=== PATIENT | male | born 1955 | race African-American/Black ===

== ENCOUNTER 2016-11-02 14:29 | Inpatient (IN) | payer MEDICARE, OTHER ==
[~2016-11-02] VITALS: Ht 167.6 cm; Wt 76.7 kg
[~2016-11-02 14:29] MED LIST: BACTRIM-DS1 EA ORAL; CEPHALEXIN500 MG ORAL; EPZICOM1 TAB PO; FOLIC ACID1 MG PO; IBUPROFEN600 MG ORAL; LEXIVA700 MG PO; NORVIR100 MG PO; ROBAXIN-750750 MG PO; TRAMADOL HCL50 MG ORAL; VIREAD300 MG PO; ZESTRIL5 MG PO
[2016-11-02] MEDS ORDERED: ROXICODONE30 M1 ORAL (14:49)
[2016-11-02] MEDS ORDERED: CYMBALTA60 MG ORAL (14:49)
[2016-11-02] MEDS ORDERED: LEXAPRO10 MG ORAL (14:49)
[2016-11-02] MEDS ORDERED: DESCOVY 200-251 EACH PO (14:49)
[2016-11-02] MEDS ORDERED: TOPAMAX25 MG ORAL (14:49)
[2016-11-02] MEDS ORDERED: ALPRAZOLAM2 MG ORAL (14:49)
[2016-11-02] MEDS ORDERED: TIVICAY50 MG ORAL (14:49)
[2016-11-02] MEDS ORDERED: LEXAPRO20 MG ORAL (14:49)
[2016-11-02] MEDS ORDERED: PREZCOBIX 8001 EACH PO (14:49)
[2016-11-02] MEDS ORDERED: SEROQUEL100 MG ORAL (14:49)
--- NOTE | 2016-11-02 15:03 | Emergency Room Report ---
History of Present Illness General Chief Complaint: Abdominal Pain Source: Patient Present Illness HPI Patient is a 61-year-old male presented after increased shortness of breath. The patient gradual onset of symptoms. He was noted to have prior history of HIV. Patient reported having worsening symptoms. The patient denies recent fever. He denies exertional pain. Patient having some pain to the left flank. He currently is taking HIV medications.The patient reported having onset of symptoms worsen with supine position Allergies: Coded Allergies: No Known Allergies (Unverified , 01/08/13) Patient History Past Medical History: see triage record Reviewed Nursing Documentation: PMH: Agreed, PSxH: Agreed Nursing Documentation-PMH Hx Hypertension: Yes Hx Asthma: Yes Hx Cancer: No Hx Gastrointestinal Problems: No Hx Seizures: No Hx Guillian-Caldwell Syndrome: No Hx Paralysis: Yes Hx Peripheral Neuropathy: No Hx Spinal Cord Injury: No Hx Head Trauma: No Hx Traumatic Brain Injury: No Hx Memory Loss: No Hx Concentration Difficulty: No Hx Speech Problem: No Hx Tremors: No Hx Vertigo: No Hx Dizziness: No Hx Syncope: No Hx Headaches: Yes Hx Weakness: Yes Review of Systems All Other Systems: negative except mentioned in HPI Physical Exam Vital Signs Date Time Temp Pulse Resp B/P Pulse Ox O2 Delivery O2 Flow Rate FiO2 11/02/16 14:38 97.5 145 16 113/87 93 Room Air Sp02 EP Interpretation: reviewed, normal General Appearance: normal inspection, alert, GCS 15, mild distress Head: atraumatic ENT: normal ENT inspection, hearing grossly normal, normal voice Neck: normal inspection, full range of motion, supple, no bony tend Respiratory: normal inspection, normal breath sounds, no respiratory distress, no retraction, no wheezing Cardiovascular #1: no edema, tachycardia Gastrointestinal: normal inspection, normal bowel sounds, non tender, soft, no guarding, no hernia Genitourinary: no CVA tenderness Musculoskeletal: normal inspection, back normal, normal range of motion Neurologic: normal inspection, alert, oriented x3, responsive, 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 Because of complexity of patient' s case laboratory testing and imaging studies were ordered.Patient is a HIV positive. The patient was noted to have chest x-ray with a left lower lobe infiltrate with normal cardiac size. The patient was given IV fluids as well as IV antibiotics. Dr. Delaney Diana was contacted for inpatient management. Labs Test 11/02/16 15:22 11/02/16 15:38 Urine Color Yellow Urine Appearance Clear Urine pH 5 (4.5-8.0) Urine Specific [place] 1.020 (1.005-1.035) Urine Protein 2+ (NEGATIVE) Urine Glucose (UA) Negative (NEGATIVE) Urine Ketones Negative (NEGATIVE) Urine Occult Blood 1+ (NEGATIVE) Urine Nitrite Negative (NEGATIVE) Urine Bilirubin Negative (NEGATIVE) Urine Urobilinogen Normal MG/DL (0.0-1.0) Urine Leukocyte Esterase Negative (NEGATIVE) Urine RBC 2-4 /HPF (0 - 0) Urine WBC 0-2 /HPF (0 - 0) Urine Squamous Epithelial Cells None /LPF (NONE/OCC) Urine Bacteria Few /HPF (NONE) White Blood Count 14.3 K/UL (4.8-10.8) Red Blood Count 4.76 M/UL (4.70-6.10) Hemoglobin 14.4 G/DL (14.2-18.0) Hematocrit 43.0 % (42.0-52.0) Mean Corpuscular Volume 90 FL (80-99) Mean Corpuscular Hemoglobin 30.3 PG (27.0-31.0) Mean Corpuscular Hemoglobin Concent 33.5 G/DL (32.0-36.0) Red Cell Distribution Width 14.6 % (11.6-14.8) Platelet Count 150 K/UL (150-450) Mean Platelet Volume 6.4 FL (6.5-10.1) Neutrophils (%) (Auto) 81.5 % (45.0-75.0) Lymphocytes (%) (Auto) 10.2 % (20.0-45.0) Monocytes (%) (Auto) 7.8 % (1.0-10.0) Eosinophils (%) (Auto) 0.0 % (0.0-3.0) Basophils (%) (Auto) 0.4 % (0.0-2.0) Prothrombin Time 11.0 SEC (9.30-11.50) Prothromb Time International Ratio 1.1 (0.9-1.1) Activated Partial Thromboplast Time 26 SEC (23-33) Sodium Level 142 mEQ/L (135-145) Potassium Level 3.8 mEQ/L (3.4-4.9) Chloride Level 100 mEQ/L (98-107) Carbon Dioxide Level 24 mEQ/L (20-30) Anion Gap 18 (5-15) Blood Urea Nitrogen 17 mg/dL (7-23) Creatinine 1.3 mg/dL (0.7-1.2) Estimat Glomerular Filtration Rate > 60 mL/min (>60) Glucose Level 151 mg/dL (74-106) Lactic Acid Level 1.40 mmol/L (0.66-2.22) Calcium Level 9.5 mg/dL (8.6-10.2) Total Bilirubin 2.0 mg/dL (0.0-1.2) Direct Bilirubin 0.4 mg/dL (0.1-0.3) Aspartate Amino Transf (AST/SGOT) 12 U/L (5-40) Alanine Aminotransferase (ALT/SGPT) 13 U/L (3-41) Alkaline Phosphatase 87 U/L (40-129) Total Creatine Kinase 43 U/L (38-174) Creatine Kinase MB < 1.5 ng/mL (< 6.7) Creatine Kinase MB Relative Index Troponin I < 0.30 ng/mL (<=0.30) Pro-B-Type Natriuretic Peptide 102 pg/mL (0-125) Total Protein 7.1 g/dL (6.6-8.7) Albumin 4.2 g/dL (3.5-5.2) Globulin 2.9 g/dL Albumin/Globulin Ratio 1.4 (1.0-2.7) EKG Diagnostic Results Rate: tachycardiac Rhythm: NSR ST Segments: no acute changes Rhythm Strip Diag. Results EP Interpretation: yes Rhythm: no PVC's, no ectopy, other - sinus tachycardia Chest X-Ray Diagnostic Results EP Interpretation: Yes Findings: no effusion, no pneumothorax, no acute cardiopulmonary disease, other - left lower lobe pneumonia Number of Views: 1 Last Vital Signs Date Time Temp Pulse Resp B/P Pulse Ox O2 Delivery O2 Flow Rate FiO2 11/02/16 14:38 97.5 145 16 113/87 93 Room Air Status: unchanged Disposition: ADMITTED INPATIENT Condition: Serious AdonayYony Nov 02, 2016 15:03
[2016-11-02 15:09] VITALS: BP 129/93
--- NOTE | 2016-11-02 16:05 | Diagnostic Imaging Report ---
Indication: SOB Technique: One view of the chest Comparison: 01/08/2013 Findings: Inspiration is suboptimal. There is bilateral basilar and left perihilar atelectasis. There is slight blunting of left costophrenic sulcus, small effusion not excludable. The heart size is borderline enlarged. Impression: Bilateral atelectatic changes. Cannot rule out small left pleural effusion No acute process otherwise
[2016-11-02 16:36] LABS: BASOPHILS % (AUTO) 0.4 % (0.0-2.0); LYMPHOCYTES % (AUTO) 10.2 % (20.0-45.0); MEAN CORPUSCULAR HEMOGLOBIN 30.3 PG (27.0-31.0); MEAN CORPUSCULAR HGB CONC 33.5 G/DL (32.0-36.0); MEAN CORPUSCULAR VOLUME 90 FL (80-99); MEAN PLATELET VOLUME 6.4 FL (6.5-10.1); MONOCYTES % (AUTO) 7.8 % (1.0-10.0); NEUTROPHILS % (AUTO) 81.5 % (45.0-75.0); PLATELET COUNT 150 K/UL (150-450); RED BLOOD COUNT 4.76 M/UL (4.70-6.10); RED CELL DISTRIBUTION WIDTH 14.6 % (11.6-14.8); WHITE BLOOD COUNT 14.3 K/UL (4.8-10.8)
[2016-11-02 16:36] LABS: APPEARANCE,URINE CLEAR; KETONES,URINE NEGATIVE (NEGATIVE); LEUKOCYTE ESTERASE ,URINE NEGATIVE (NEGATIVE); NITRITE,URINE NEGATIVE (NEGATIVE); PH,URINE 5 (4.5-8.0); PROTEIN,URINE 2+ (NEGATIVE); UROBILINOGEN,URINE NORMAL MG/DL (0.0-1.0)
[2016-11-02 16:39] LABS: INR 1.1 (0.9-1.1)
[2016-11-02] MEDS ORDERED: Ampicillin/Sulbactam Sod 3 GM in NS 100 ML IVPB ONE (16:45)
[2016-11-02 16:46] LABS: BACTERIA,URINE FEW /HPF; WBC,URINE 0-2 /HPF (0 - 0)
[2016-11-02] MEDS ORDERED: Unasyn 3gm Inj ONE (16:49)
[2016-11-02 16:51] LABS: TROPONIN I < 0.30 ng/mL (<=0.30)
[2016-11-02 16:54] LABS: ALANINE AMINOTRANSFERASE 13 U/L (3-41); ALBUMIN/GLOBULIN RATIO 1.4 (1.0-2.7); ANION GAP 18 (5-15); ASPARTATE AMINO TRANSFERASE 12 U/L (5-40); CALCIUM 9.5 mg/dL (8.6-10.2); CARBON DIOXIDE 24 mEQ/L (20-30); CHLORIDE 100 mEQ/L (98-107); CREATININE 1.3 mg/dL (0.7-1.2); GLOMERULAR FILTRATION RATE > 60 mL/min (>60); HEMOLYSIS 4; POTASSIUM 3.8 mEQ/L (3.4-4.9); SODIUM 142 mEQ/L (135-145); TOTAL PROTEIN 7.1 g/dL (6.6-8.7)
[2016-11-02 16:59] LABS: CKMB < 1.5 ng/mL (< 6.7)
[2016-11-02 17:10] LABS: BILIRUBIN,DIRECT 0.4 mg/dL (0.1-0.3)
[2016-11-02] MEDS ORDERED: DuoNeb 0.5-3(2.5)mg/3ml neb HHN PRN (19:15)
[2016-11-02] MEDS ORDERED: Promethazine/Codeine 5ml UD ORAL PRN (19:15)
[2016-11-02] MEDS ORDERED: Mylanta II UD 30ml ORAL PRN (19:15)
[2016-11-02] MEDS ORDERED: Miralax 17gm pkt ORAL PRN (19:15)
[2016-11-02] MEDS ORDERED: Nitroglycerin Subl 0.4mg tab (Bottle Of 25) SL PRN (19:15)
[2016-11-02] MEDS ORDERED: [UNRECOGNIZED DRUG - OTHER] ORAL SCH (19:15)
[2016-11-02 20:53] VITALS: BP 137/98
--- NOTE | 2016-11-02 22:10 | Infectious Diseases Prog Note ---
Assessment/Plan Problems: (1) CAP (community acquired pneumonia) Assessment & Plan: continue cefepime , will add zithromax to cover atypical organisms, await sputum culture, continue bactrim for PJP prophylaxis (2) HIV (human immunodeficiency virus infection) Assessment & Plan: will resume previous HIV meds, and order viral load and CD4 counts Subjective Allergies: Coded Allergies: No Known Allergies (Unverified , 01/08/13) Objective Vital Signs Last 24 Hour Vital Signs Date Time Temp Pulse Resp B/P Pulse Ox O2 Delivery O2 Flow Rate FiO2 11/02/16 20:57 Nasal Cannula 2.0 28 11/02/16 20:57 96 Nasal Cannula 2.0 28 11/02/16 20:53 97.9 124 20 137/98 96 Nasal Cannula 2.0 11/02/16 19:21 97.5 125 18 150/98 99 Nasal Cannula 3.0 11/02/16 15:09 97.5 140 16 129/93 93 Room Air 11/02/16 14:38 97.5 145 16 113/87 93 Room Air Height (Feet): 5 Height (Inches): 6.00 Weight (Pounds): 169 Microbiology Date/Time Source Procedure Growth Status 11/02/16 15:35 Nasal Nares Influenza Types A,B Antigen (NEHEMIAH) - Final Complete Laboratory Tests Test 11/02/16 15:22 11/02/16 15:38 Urine Color Yellow Urine Appearance Clear Urine pH 5 (4.5-8.0) Urine Specific [place] 1.020 (1.005-1.035) Urine Protein 2+ (NEGATIVE) H Urine Glucose (UA) Negative (NEGATIVE) Urine Ketones Negative (NEGATIVE) Urine Occult Blood 1+ (NEGATIVE) H Urine Nitrite Negative (NEGATIVE) Urine Bilirubin Negative (NEGATIVE) Urine Urobilinogen Normal MG/DL (0.0-1.0) Urine Leukocyte Esterase Negative (NEGATIVE) Urine RBC 2-4 /HPF (0 - 0) H Urine WBC 0-2 /HPF (0 - 0) Urine Squamous Epithelial Cells None /LPF (NONE/OCC) Urine Bacteria Few /HPF (NONE) White Blood Count 14.3 K/UL (4.8-10.8) H Red Blood Count 4.76 M/UL (4.70-6.10) Hemoglobin 14.4 G/DL (14.2-18.0) Hematocrit 43.0 % (42.0-52.0) Mean Corpuscular Volume 90 FL (80-99) Mean Corpuscular Hemoglobin 30.3 PG (27.0-31.0) Mean Corpuscular Hemoglobin Concent 33.5 G/DL (32.0-36.0) Red Cell Distribution Width 14.6 % (11.6-14.8) Platelet Count 150 K/UL (150-450) Mean Platelet Volume 6.4 FL (6.5-10.1) L Neutrophils (%) (Auto) 81.5 % (45.0-75.0) H Lymphocytes (%) (Auto) 10.2 % (20.0-45.0) L Monocytes (%) (Auto) 7.8 % (1.0-10.0) Eosinophils (%) (Auto) 0.0 % (0.0-3.0) Basophils (%) (Auto) 0.4 % (0.0-2.0) Prothrombin Time 11.0 SEC (9.30-11.50) Prothromb Time International Ratio 1.1 (0.9-1.1) Activated Partial Thromboplast Time 26 SEC (23-33) Sodium Level 142 mEQ/L (135-145) Potassium Level 3.8 mEQ/L (3.4-4.9) Chloride Level 100 mEQ/L (98-107) Carbon Dioxide Level 24 mEQ/L (20-30) Anion Gap 18 (5-15) H Blood Urea Nitrogen 17 mg/dL (7-23) Creatinine 1.3 mg/dL (0.7-1.2) H Estimat Glomerular Filtration Rate > 60 mL/min (>60) Glucose Level 151 mg/dL (74-106) H Lactic Acid Level 1.40 mmol/L (0.66-2.22) Calcium Level 9.5 mg/dL (8.6-10.2) Total Bilirubin 2.0 mg/dL (0.0-1.2) H Direct Bilirubin 0.4 mg/dL (0.1-0.3) H Aspartate Amino Transf (AST/SGOT) 12 U/L (5-40) Alanine Aminotransferase (ALT/SGPT) 13 U/L (3-41) Alkaline Phosphatase 87 U/L (40-129) Total Creatine Kinase 43 U/L (38-174) Creatine Kinase MB < 1.5 ng/mL (< 6.7) Creatine Kinase MB Relative Index Troponin I < 0.30 ng/mL (<=0.30) Pro-B-Type Natriuretic Peptide 102 pg/mL (0-125) Total Protein 7.1 g/dL (6.6-8.7) Albumin 4.2 g/dL (3.5-5.2) Globulin 2.9 g/dL Albumin/Globulin Ratio 1.4 (1.0-2.7) Current Medications Medications (Trade) Dose Ordered Sig/Christie Route PRN Reason Start Time Stop Time Status Last Admin Dose Admin Acetaminophen (Tylenol) 650 mg Q4H PRN ORAL fever 11/02/16 19:15 12/02/16 19:14 Al Hydroxide/Mg Hydroxide (Mylanta II) 30 ml Q6H PRN ORAL dyspepsia 11/02/16 19:15 12/02/16 19:14 Albuterol/ Ipratropium 3 ml 3 ml Q4H PRN HHN Shortness of Breath 11/02/16 19:15 11/07/16 19:14 Cefepime HCl/ Dextrose (Maxipime/D5W 50ml) 50 ml @ 100 mls/hr EVERY 12 HOURS IV 11/02/16 21:00 11/09/16 20:59 Dolutegravir Sodium (Tivicay) 50 mg DAILY ORAL 11/03/16 09:00 12/03/16 08:59 UNV Duloxetine HCl (Cymbalta) 60 mg DAILY ORAL 11/03/16 09:00 12/03/16 08:59 Escitalopram Oxalate (Lexapro) 10 mg DAILY ORAL 11/03/16 09:00 12/03/16 08:59 Heparin Sodium (Porcine) (Heparin 5000 units/ml) 5,000 units EVERY 12 HOURS SUBQ 11/02/16 21:00 12/02/16 20:59 Lisinopril (Zestril) 5 mg DAILY ORAL 11/03/16 09:00 12/03/16 08:59 Methocarbamol (Robaxin) 750 mg TID ORAL 11/03/16 09:00 12/03/16 08:59 Nitroglycerin (Ntg) 0.4 mg Q5M PRN SL Prn Chest Pain 11/02/16 19:15 12/02/16 19:14 Ondansetron HCl (Zofran) 4 mg Q6H PRN IVP Nausea & Vomiting 11/02/16 19:15 12/02/16 19:14 Oxycodone HCl (Roxicodone) 30 mg DAILY ORAL 11/03/16 09:00 11/10/16 08:59 UNV Polyethylene Glycol (Miralax) 17 gm DAILYPRN PRN ORAL Constipation 11/02/16 19:15 12/02/16 19:14 Promethazine HCl/ Codeine (Phenergan with Codeine) 5 ml Q4H PRN ORAL For Cough 11/02/16 19:15 12/02/16 19:14 Quetiapine Fumarate (SEROquel) 100 mg DAILY ORAL 11/03/16 09:00 12/03/16 08:59 Temazepam (Restoril) 15 mg HSPRN PRN ORAL Insomnia 11/02/16 19:15 11/09/16 19:14 Topiramate (Topamax) 50 mg EVERY 12 HOURS ORAL 11/02/16 21:00 12/02/16 20:59 Trimethoprim/ Sulfamethoxazole (Bactrim-DS) 1 ea TWICE A DAY ORAL 11/03/16 09:00 11/10/16 08:59 Stanley Sofia M.D. Nov 02, 2016 22:10
[2016-11-02] MEDS: Topiramate 25mg tab ORAL SCH (22:16)
[2016-11-02] MEDS: Heparin 5000 units/ml inj SUBQ SCH (22:19)
[2016-11-03] VITALS: BP 140/100
[2016-11-03 04:00] VITALS: BP 129/78
[2016-11-03 07:55] LABS: BASOPHILS % (AUTO) 0.4 % (0.0-2.0); EOSINOPHILS % (AUTO) 0.2 % (0.0-3.0); LYMPHOCYTES % (AUTO) 12.7 % (20.0-45.0); MEAN CORPUSCULAR HEMOGLOBIN 30.6 PG (27.0-31.0); MEAN CORPUSCULAR HGB CONC 33.8 G/DL (32.0-36.0); MEAN CORPUSCULAR VOLUME 91 FL (80-99); MEAN PLATELET VOLUME 7.6 FL (6.5-10.1); MONOCYTES % (AUTO) 8.1 % (1.0-10.0); NEUTROPHILS % (AUTO) 78.6 % (45.0-75.0); PLATELET COUNT 133 K/UL (150-450); RED BLOOD COUNT 4.24 M/UL (4.70-6.10); RED CELL DISTRIBUTION WIDTH 14.7 % (11.6-14.8); WHITE BLOOD COUNT 14.9 K/UL (4.8-10.8)
[2016-11-03 08:00] VITALS: BP 132/84
[2016-11-03 08:22] LABS: ANION GAP 15 (5-15); CALCIUM 9.2 mg/dL (8.6-10.2); CARBON DIOXIDE 25 mEQ/L (20-30); CHLORIDE 99 mEQ/L (98-107); GLOMERULAR FILTRATION RATE > 60 mL/min (>60); HEMOLYSIS 4; PHOSPHORUS 2.4 mg/dL (2.5-4.8); POTASSIUM 4.2 mEQ/L (3.4-4.9); SODIUM 139 mEQ/L (135-145)
[2016-11-03] MEDS ORDERED: Epzicom tab ORAL SCH ×2 (09:00)
[2016-11-03] MEDS: oxyCONTIN 10mg tab ORAL SCH (09:00)
[2016-11-03] MEDS ORDERED: Ritonavir 100mg tab ORAL SCH (09:00)
[2016-11-03] MEDS ORDERED: Bactrim DS (160mg/800mg) tab ORAL SCH (09:00)
[2016-11-03] MEDS: Heparin 5000 units/ml inj SUBQ SCH ×2 (09:00→21:36)
[2016-11-03] MEDS ORDERED: Dolutegravir Sodium 50mg tab ORAL SCH (09:00)
[2016-11-03] MEDS: DULoxetine 30mg cap ORAL SCH (09:20)
[2016-11-03] MEDS: Topiramate 25mg tab ORAL SCH ×2 (09:21→21:35)
[2016-11-03] MEDS: Azithromycin 250mg tab ORAL SCH (09:21)
[2016-11-03] MEDS: Lisinopril 2.5mg tab ORAL SCH (09:21)
[2016-11-03] MEDS: Methocarbamol 750mg tab ORAL SCH ×3 (09:22→18:16)
[2016-11-03 11:57] VITALS: BP 126/82
--- NOTE | 2016-11-03 15:36 | Cardiac Electrophysiology PN ---
Subjective Subjective [id number] Objective Last 24 Hour Vital Signs Date Time Temp Pulse Resp B/P Pulse Ox O2 Delivery O2 Flow Rate FiO2 11/03/16 12:00 120 11/03/16 11:57 98.1 143 22 126/82 95 Nasal Cannula 2.0 11/03/16 09:21 132/84 11/03/16 08:00 98.2 118 21 132/84 98 Room Air 11/03/16 08:00 113 11/03/16 07:59 118 16 Room Air 2.0 28 11/03/16 07:57 99 Nasal Cannula 2.0 28 11/03/16 07:56 Nasal Cannula 2.0 28 11/03/16 04:00 99.3 72 20 129/78 95 Nasal Cannula 2.0 11/03/16 04:00 106 11/03/16 00:00 97.7 100 20 100 Nasal Cannula 2.0 11/03/16 00:00 118 11/03/16 00:00 97.7 122 20 140/100 100 Nasal Cannula 2.0 122 11/02/16 20:57 Nasal Cannula 2.0 28 11/02/16 20:57 96 Nasal Cannula 2.0 28 11/02/16 20:53 97.9 124 20 137/98 96 Nasal Cannula 2.0 11/02/16 19:21 97.5 125 18 150/98 99 Nasal Cannula 3.0 Intake and Output 11/02/16 11/03/16 19:00 07:00 Intake Total 500 ml Balance 500 ml Intake Oral 0 ml IV Total 500 ml # Voids 2 Laboratory Tests Test 11/02/16 15:38 11/03/16 06:55 11/03/16 09:00 White Blood Count 14.3 K/UL (4.8-10.8) H 14.9 K/UL (4.8-10.8) H Pending Red Blood Count 4.76 M/UL (4.70-6.10) 4.24 M/UL (4.70-6.10) L Hemoglobin 14.4 G/DL (14.2-18.0) 12.9 G/DL (14.2-18.0) L Hematocrit 43.0 % (42.0-52.0) 38.4 % (42.0-52.0) L Mean Corpuscular Volume 90 FL (80-99) 91 FL (80-99) Mean Corpuscular Hemoglobin 30.3 PG (27.0-31.0) 30.6 PG (27.0-31.0) Mean Corpuscular Hemoglobin Concent 33.5 G/DL (32.0-36.0) 33.8 G/DL (32.0-36.0) Red Cell Distribution Width 14.6 % (11.6-14.8) 14.7 % (11.6-14.8) Platelet Count 150 K/UL (150-450) 133 K/UL (150-450) L Mean Platelet Volume 6.4 FL (6.5-10.1) L 7.6 FL (6.5-10.1) Neutrophils (%) (Auto) 81.5 % (45.0-75.0) H 78.6 % (45.0-75.0) H Lymphocytes (%) (Auto) 10.2 % (20.0-45.0) L 12.7 % (20.0-45.0) L Monocytes (%) (Auto) 7.8 % (1.0-10.0) 8.1 % (1.0-10.0) Eosinophils (%) (Auto) 0.0 % (0.0-3.0) 0.2 % (0.0-3.0) Basophils (%) (Auto) 0.4 % (0.0-2.0) 0.4 % (0.0-2.0) Prothrombin Time 11.0 SEC (9.30-11.50) Prothromb Time International Ratio 1.1 (0.9-1.1) Activated Partial Thromboplast Time 26 SEC (23-33) Sodium Level 142 mEQ/L (135-145) 139 mEQ/L (135-145) Potassium Level 3.8 mEQ/L (3.4-4.9) 4.2 mEQ/L (3.4-4.9) Chloride Level 100 mEQ/L (98-107) 99 mEQ/L (98-107) Carbon Dioxide Level 24 mEQ/L (20-30) 25 mEQ/L (20-30) Anion Gap 18 (5-15) H 15 (5-15) Blood Urea Nitrogen 17 mg/dL (7-23) 12 mg/dL (7-23) Creatinine 1.3 mg/dL (0.7-1.2) H 1.0 mg/dL (0.7-1.2) Estimat Glomerular Filtration Rate > 60 mL/min (>60) > 60 mL/min (>60) Glucose Level 151 mg/dL (74-106) H 111 mg/dL (74-106) H Lactic Acid Level 1.40 mmol/L (0.66-2.22) Calcium Level 9.5 mg/dL (8.6-10.2) 9.2 mg/dL (8.6-10.2) Total Bilirubin 2.0 mg/dL (0.0-1.2) H Direct Bilirubin 0.4 mg/dL (0.1-0.3) H Aspartate Amino Transf (AST/SGOT) 12 U/L (5-40) Alanine Aminotransferase (ALT/SGPT) 13 U/L (3-41) Alkaline Phosphatase 87 U/L (40-129) Total Creatine Kinase 43 U/L (38-174) Creatine Kinase MB < 1.5 ng/mL (< 6.7) Creatine Kinase MB Relative Index Troponin I < 0.30 ng/mL (<=0.30) Pro-B-Type Natriuretic Peptide 102 pg/mL (0-125) Total Protein 7.1 g/dL (6.6-8.7) Albumin 4.2 g/dL (3.5-5.2) 3.7 g/dL (3.5-5.2) Globulin 2.9 g/dL Albumin/Globulin Ratio 1.4 (1.0-2.7) Phosphorus Level 2.4 mg/dL (2.5-4.8) L Lymphocytes Pending Percent CD3 Cells Pending Absolute CD3 Count Pending Percent CD4 Cells Pending Absolute CD4 Count Pending T-Lymphocyte CD4/CD8 Ratio Pending Percent CD8 Cells Pending Absolute CD8 Count Pending HIV-1 RNA (PCR) log10 Value Pending HIV-1 RNA Ultraquantitative (PCR) Pending Microbiology Date/Time Source Procedure Growth Status 11/02/16 15:35 Nasal Nares Influenza Types A,B Antigen (NEHEMIAH) - Final Complete KURT ALEGRIA Nov 03, 2016 15:36
[2016-11-03 16:00] VITALS: BP 96/63
[2016-11-03] MEDS ORDERED: Tubing IV Secondary IV ONE (17:01)
[2016-11-03] MEDS ORDERED: NS 275ml ONE (17:01)
--- NOTE | 2016-11-03 17:22 | Infectious Diseases Prog Note ---
Assessment/Plan Problems: (1) CAP (community acquired pneumonia) Assessment & Plan: continue cefepime ,vancomycin and zithromax to cover atypical organisms, await sputum culture, will stop bactrim since his CD4 was 800 last month, so no need for for PJP prophylaxis (2) HIV (human immunodeficiency virus infection) Assessment & Plan: will resume previous HIV meds, await viral load and CD4 counts Subjective Constitutional: Reports: no symptoms HEENT: Reports: no symptoms Respiratory: Reports: dry cough Breasts: Reports: no symptoms Cardiovascular: Reports: no symptoms Gastrointestinal/Abdominal: Reports: no symptoms Genitourinary: Reports: no symptoms Neurologic: Reports: no symptoms Psychiatric: Reports: no symptoms Skin: Reports: no symptoms Allergies: Coded Allergies: No Known Allergies (Unverified , 01/08/13) Objective Vital Signs Last 24 Hour Vital Signs Date Time Temp Pulse Resp B/P Pulse Ox O2 Delivery O2 Flow Rate FiO2 11/03/16 16:00 97.7 120 20 96/63 93 Room Air 11/03/16 12:00 120 11/03/16 11:57 98.1 143 22 126/82 95 Nasal Cannula 2.0 11/03/16 09:21 132/84 11/03/16 08:00 98.2 118 21 132/84 98 Room Air 11/03/16 08:00 113 11/03/16 07:59 118 16 Room Air 2.0 28 11/03/16 07:57 99 Nasal Cannula 2.0 28 11/03/16 07:56 Nasal Cannula 2.0 28 11/03/16 04:00 99.3 72 20 129/78 95 Nasal Cannula 2.0 11/03/16 04:00 106 11/03/16 00:00 97.7 100 20 100 Nasal Cannula 2.0 11/03/16 00:00 118 11/03/16 00:00 97.7 122 20 140/100 100 Nasal Cannula 2.0 122 11/02/16 20:57 Nasal Cannula 2.0 28 11/02/16 20:57 96 Nasal Cannula 2.0 28 11/02/16 20:53 97.9 124 20 137/98 96 Nasal Cannula 2.0 11/02/16 19:21 97.5 125 18 150/98 99 Nasal Cannula 3.0 Height (Feet): 5 Height (Inches): 6.00 Weight (Pounds): 169 General Appearance: WD/WN, no acute distress HEENT: normocephalic, atraumatic, anicteric, mucous membranes moist Respiratory/Chest: chest wall non-tender, normal breath sounds, no respiratory distress, no accessory muscle use, decreased breath sounds, expiratory wheezing Cardiovascular: normal peripheral pulses, normal rate, regular rhythm, no gallop/murmur Abdomen: normal bowel sounds, soft, non tender, no organomegaly, non distended , no mass Extremities: no cyanosis, no clubbing Skin: no rash, no lesions, no ulcers Microbiology Date/Time Source Procedure Growth Status 11/02/16 15:35 Nasal Nares Influenza Types A,B Antigen (NEHEMIAH) - Final Complete Laboratory Tests Test 11/03/16 06:55 11/03/16 09:00 White Blood Count 14.9 K/UL (4.8-10.8) H Pending Red Blood Count 4.24 M/UL (4.70-6.10) L Hemoglobin 12.9 G/DL (14.2-18.0) L Hematocrit 38.4 % (42.0-52.0) L Mean Corpuscular Volume 91 FL (80-99) Mean Corpuscular Hemoglobin 30.6 PG (27.0-31.0) Mean Corpuscular Hemoglobin Concent 33.8 G/DL (32.0-36.0) Red Cell Distribution Width 14.7 % (11.6-14.8) Platelet Count 133 K/UL (150-450) L Mean Platelet Volume 7.6 FL (6.5-10.1) Neutrophils (%) (Auto) 78.6 % (45.0-75.0) H Lymphocytes (%) (Auto) 12.7 % (20.0-45.0) L Monocytes (%) (Auto) 8.1 % (1.0-10.0) Eosinophils (%) (Auto) 0.2 % (0.0-3.0) Basophils (%) (Auto) 0.4 % (0.0-2.0) Sodium Level 139 mEQ/L (135-145) Potassium Level 4.2 mEQ/L (3.4-4.9) Chloride Level 99 mEQ/L (98-107) Carbon Dioxide Level 25 mEQ/L (20-30) Anion Gap 15 (5-15) Blood Urea Nitrogen 12 mg/dL (7-23) Creatinine 1.0 mg/dL (0.7-1.2) Estimat Glomerular Filtration Rate > 60 mL/min (>60) Glucose Level 111 mg/dL (74-106) H Calcium Level 9.2 mg/dL (8.6-10.2) Phosphorus Level 2.4 mg/dL (2.5-4.8) L Albumin 3.7 g/dL (3.5-5.2) Hepatitis A IgM Antibody Pending Hepatitis B Surface Antigen Pending Hepatitis B Core IgM Antibody Pending Hepatitis C Antibody Pending Lymphocytes Pending Percent CD3 Cells Pending Absolute CD3 Count Pending Percent CD4 Cells Pending Absolute CD4 Count Pending T-Lymphocyte CD4/CD8 Ratio Pending Percent CD8 Cells Pending Absolute CD8 Count Pending HIV-1 RNA (PCR) log10 Value Pending HIV-1 RNA Ultraquantitative (PCR) Pending Current Medications Medications (Trade) Dose Ordered Sig/Christie Route PRN Reason Start Time Stop Time Status Last Admin Dose Admin Acetaminophen (Tylenol) 650 mg Q4H PRN ORAL fever 11/02/16 19:15 12/02/16 19:14 Al Hydroxide/Mg Hydroxide (Mylanta II) 30 ml Q6H PRN ORAL dyspepsia 11/02/16 19:15 12/02/16 19:14 Albuterol/ Ipratropium 3 ml 3 ml Q4H PRN HHN Shortness of Breath 11/02/16 19:15 11/07/16 19:14 Azithromycin (Zithromax) 250 mg DAILY ORAL 11/03/16 09:00 11/10/16 08:59 11/03/16 09:21 Cefepime HCl/ Dextrose (Maxipime/D5W 50ml) 50 ml @ 100 mls/hr EVERY 12 HOURS IV 11/02/16 21:00 11/09/16 20:59 11/03/16 09:20 Clonidine HCl 0.1 mg 0.1 mg Q4H PRN ORAL For High Blood Pressure 11/03/16 01:45 12/03/16 01:44 Dolutegravir Sodium (Tivicay) 50 mg DAILY ORAL 11/03/16 09:00 12/03/16 08:59 UNV Duloxetine HCl (Cymbalta) 60 mg DAILY ORAL 11/03/16 09:00 12/03/16 08:59 11/03/16 09:20 Escitalopram Oxalate (Lexapro) 10 mg DAILY ORAL 11/03/16 09:00 12/03/16 08:59 11/03/16 09:21 Heparin Sodium (Porcine) (Heparin 5000 units/ml) 5,000 units EVERY 12 HOURS SUBQ 11/02/16 21:00 12/02/16 20:59 11/02/16 22:19 Lisinopril (Zestril) 5 mg DAILY ORAL 11/03/16 09:00 12/03/16 08:59 11/03/16 09:21 Methocarbamol (Robaxin) 750 mg TID ORAL 11/03/16 09:00 12/03/16 08:59 11/03/16 13:19 Nitroglycerin (Ntg) 0.4 mg Q5M PRN SL Prn Chest Pain 11/02/16 19:15 12/02/16 19:14 Ondansetron HCl (Zofran) 4 mg Q6H PRN IVP Nausea & Vomiting 11/02/16 19:15 12/02/16 19:14 Oxycodone HCl (OxyCONTIN) 30 mg DAILY ORAL 11/03/16 09:00 11/10/16 08:59 Polyethylene Glycol (Miralax) 17 gm DAILYPRN PRN ORAL Constipation 11/02/16 19:15 12/02/16 19:14 Promethazine HCl/ Codeine (Phenergan with Codeine) 5 ml Q4H PRN ORAL For Cough 11/02/16 19:15 12/02/16 19:14 Quetiapine Fumarate (SEROquel) 100 mg DAILY ORAL 11/03/16 09:00 12/03/16 08:59 11/03/16 09:21 Temazepam (Restoril) 15 mg HSPRN PRN ORAL Insomnia 11/02/16 19:15 11/09/16 19:14 11/02/16 23:53 Topiramate (Topamax) 50 mg EVERY 12 HOURS ORAL 11/02/16 21:00 12/02/16 20:59 11/03/16 09:21 Trimethoprim/ Sulfamethoxazole (Bactrim-DS) 1 ea DAILY ORAL 11/04/16 09:00 11/11/16 08:59 Vancomycin HCl/ Dextrose (Vancomycin/D5W 250ml) 250 ml @ 167 mls/hr Q12HR@0000,1200 IVPB 11/03/16 11:00 11/08/16 10:59 11/03/16 11:01 Stanley Sofia M.D. Nov 03, 2016 17:22
[2016-11-03 20:00] VITALS: BP 115/73
[2016-11-03 21:23] LABS: ANISOCYTOSIS 1+; BAND NEUTROPHILS % (MANUAL) 0 % (0-8); BASOPHILS % (MANUAL) 0 % (0-2); EOSINOPHILS % (MANUAL) 0 % (0-3); LYMPHOCYTES % (MANUAL) 31 % (20-45); NEUTROPHILS % (MANUAL) 60 % (45-75); PLATELET ESTIMATE DECREASED; PLATELET MORPHOLOGY NORMAL; TOTAL CELLS COUNTED 100
[2016-11-03 21:32] LABS: PATH BLOOD SMEAR/OMC SENT TO PATHOLOGIST
--- NOTE | 2016-11-03 22:38 | Consultation ---
DATE OF CONSULTATION: 11/03/2016 CARDIOLOGY CONSULTATION CONSULTING PHYSICIAN: Blane Espinal M.D. REFERRING PHYSICIAN: Delaney Bo M.D. REASON FOR CONSULTATION: Tachycardia. HISTORY OF PRESENT ILLNESS: The patient is a 61-year-old gentleman with history of human immunodeficiency virus, who presented to the emergency room for increasing left flank pain and abdominal pain. The patient has been currently taking HIV medication. The patient also was found to be severely tachycardia and heart rate went up to 148 beats per minute. A Cardiology consultation was obtained for further evaluation and management. PAST MEDICAL HISTORY: Includes: 1. Human immunodeficiency virus, on anti-retroviral therapy. 2. Hypertension. 3. Asthma. FAMILY HISTORY: Noncontributory. SOCIAL HISTORY: He lives at home. He does not smoke or drink alcohol. REVIEW OF SYSTEM: Review of systems was performed and was negative other than what was mentioned in the history of present illness. PHYSICAL EXAMINATION: VITAL SIGNS: Blood pressure 132/87, pulse 145, respirations 16, and temperature 97.5 degrees. HEAD AND NECK: Showed no JVD. He has lymph nodes around his neck, inframaxillary, as well as posterior cervical area. LUNGS: Clear. CARDIOVASCULAR: Regular S1 and S2 with no gallop or murmur. ABDOMEN: Soft. EXTREMITIES: No pitting edema. LABORATORY AND DIAGNOSTIC DATA: His EKG showed sinus tachycardia at a rate of 137 beats per minute. His echocardiogram showed ejection fraction of 60% to 65% with mild left ventricular hypertrophy. Also, he has severe pulmonary hypertension with PA pressure of 61. His labs show a white count of 14.9, hemoglobin 12.9, hematocrit 38.5, and platelet count 133,000. Sodium 139, potassium is 4.2, BUN of 12, creatinine 1, and glucose of 111. Troponins are negative. INR is 1. His CD4 count is pending. His HIV RNA is pending. ASSESSMENT AND PLAN: 1. Tachycardia due to sinus tachycardia. The patient has sepsis and pneumonia. There is no evidence of atrial fibrillation. Echocardiogram showed normal left ventricle systolic function. 2. Hypertension, on lisinopril 5 mg daily. 3. Pneumonia, on Zithromax, cefepime, and vancomycin. 4. Human immunodeficiency virus, on Bactrim and [place]. 5. Depression, on Cymbalta and lisinopril. Thank very much, Dr. Bo, for allowing me to participate in the care of this patient. Please do not hesitate to contact me with any questions regarding my evaluation. Blane Espinal M.D. DR: LUIS A JOB#: [id number] CC:
--- NOTE | 2016-11-03 22:58 | Consultation ---
DATE OF CONSULTATION: INFECTIOUS DISEASE CONSULTATION REQUESTING PHYSICIAN: Delaney Bo M.D. REASON FOR CONSULTATION: Fever, cough, shortness of breath, recommendation for antibiotics therapy for possible pneumonia in human immunodeficiency virus patient. HISTORY OF PRESENT ILLNESS: The patient is a 61-year-old male with history of human immunodeficiency virus since 1994, who has been on multiple regimen lately, cannot recall the exact medications he is on at home, presented with worsening cough and shortness of breath associated with fever. His cough has been dry and nonproductive. The patient received flu vaccine this year and pneumonia vaccination before. Denied any sick contacts. No recent travel. He has been up to date with his human immunodeficiency virus medication. Last CD4 count as per the patient's report was around 800 and viral load less than 20, which is undetected. In the emergency room, the patient had leukocytosis. His urine did not show any evidence of infection. Chest x-ray showed atelectatic change with small pleural effusion. The patient received antibiotics in the emergency room and I was consulted by the primary provider for antibiotics recommendation and further human immunodeficiency virus care. REVIEW OF SYSTEMS: A 12-point of system reviewed were all negative apart from the one I mentioned above. PAST MEDICAL HISTORY: Significant for human immunodeficiency virus, hypertension, and asthma. PAST SURGICAL HISTORY: Negative. ALLERGIES: He has no known drug allergy. MEDICATIONS: The patient on Cymbalta, Lexapro, Zestril, Robaxin, OxyContin, Seroquel, clonidine, Topamax, heparin, DuoNeb, Tylenol, Zofran, Mylanta, and nitroglycerin. He cannot recall exact human immunodeficiency virus medications at home, but he remembers that he is on Truvada, tivicay , and something else. SOCIAL HISTORY: No drugs, tobacco, or alcohol. FAMILY HISTORY: Not contributory. PHYSICAL EXAMINATION: VITAL SIGNS: Temperature 99.3, pulse 72, blood pressure 129/78, pulse oximetry 95% on two liters nasal cannula, and respirations 20. GENERAL: A middle-aged male, up in bed, awake, alert, not in distress. HEENT: Normocephalic and atraumatic. Pupils are reactive to light equally. Moist oral mucosa. No exudate or thrush. NECK: Supple. No lymphadenopathy. CARDIOVASCULAR: Regular rate and rhythm. No murmur. No gallop. LUNGS: Clear bilaterally. No wheezing or rhonchi. Diminished breathing sound in the bases with fine crackles. ABDOMEN: Soft, obese, nontender, and nondistended. Positive bowel sounds. No hepatosplenomegaly. No ascites. EXTREMITIES: No edema. No cyanosis. LABORATORY AND DIAGNOSTIC DATA: Labs showed white count of 14.3, hemoglobin of 14.4, hematocrit 43, and platelet count of 150,000. BUN of 17, creatinine 1.3. AST 12 and ALT 13. Urinalysis negative for urinary tract infection. Microbiology, influenza screening so far negative. IMAGING: Chest x-ray showed bilateral atelectasis, cannot rule out small left pleural effusion. ASSESSMENT AND PLAN: 1. Community-acquired pneumonia/bronchitis. We will continue cefepime for now and add Zithromax to cover for atypical organism. Influenza screening so far negative. We will await sputum culture. We will stop Bactrim since he had high CD4 count with 800 as per his report, no need for PJP prophylaxis. 2. Human immunodeficiency virus. The patient reported being on Truvada, dolutegravir, and something else. At this point, we asked him to bring his home medication to continue taking them in the hospital since he is not clear, which one he is taking and we will order CD4 count and viral load. No need for PJP prophylaxis. We will start Bactrim since his last CD4 count was more than 800. Stanley Sofia M.D. DR: ANDRE JOB#: [id number] CC: LISBETH
[2016-11-04] VITALS (7 sets, daily range): BP systolic 83–125; BP diastolic 54–77
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
--- NOTE | 2016-11-04 08:27 | General Progress Note ---
Assessment/Plan Assessment/Plan IMPRESSION: 1. Leukocytosis. Likely 2/2 underlying infection 2. Anemia 2/2 chronic disease 3. Thrombocytopenia. Potentially 2/2 infection 4. Decreased H/H rule out GI bleed 5. Probable pneumonia. 6. Mild with fatty infiltration. 7. Community acquired pneumonia. 8. History of human-immunodeficiency virus. 9. Dehydration. 10. Sinus tachycardia. RECOMMENDATIONS: 1. Monitor counts. 2. Obtain peripheral smear. 3. Antibiotics as needed. 4. Pain control. 5. DVT prophylaxis with heparin. 6. Continue human-immunodeficiency virus medication per ID 7. Hepatitis panel sent 8. Follow up on ID, Pulmonary and Cardiology recommendations 9. Discussed with staff. Thank you, Ricki Edmondson MD Subjective Constitutional: Reports: no symptoms HEENT: Reports: no symptoms Cardiovascular: Reports: no symptoms Respiratory: Reports: no symptoms Gastrointestinal/Abdominal: Reports: poor appetite Genitourinary: Reports: no symptoms Neurologic/Psychiatric: Reports: no symptoms Endocrine: Reports: no symptoms Hematologic/Lymphatic: Reports: anemia Allergies: Coded Allergies: No Known Allergies (Unverified , 01/08/13) Subjective stable, no complaints, no fevers, or chills Objective Last 24 Hour Vital Signs Date Time Temp Pulse Resp B/P Pulse Ox O2 Delivery O2 Flow Rate FiO2 11/04/16 04:43 98.1 116 20 117/75 96 Room Air 11/04/16 04:00 114 11/04/16 00:42 98.1 117 20 125/75 100 Nasal Cannula 2.0 11/03/16 20:00 118 11/03/16 20:00 98.8 60 18 115/73 Nasal Cannula 2.0 96 11/03/16 19:28 Nasal Cannula 2.0 28 11/03/16 19:27 102 16 Nasal Cannula 2.0 28 11/03/16 19:27 96 Nasal Cannula 2.0 28 11/03/16 16:00 97.7 120 20 96/63 93 Room Air 11/03/16 12:00 120 11/03/16 11:57 98.1 143 22 126/82 95 Nasal Cannula 2.0 11/03/16 09:21 132/84 Intake and Output 11/03/16 11/04/16 18:59 06:59 Intake Total 420 ml Output Total 750 ml 525 ml Balance -750 ml -105 ml Intake Oral 420 ml Output Urine Total 750 ml 525 ml Laboratory Tests 11/03/16 09:00: White Blood Count [Pending], Lymphocytes [Pending], Percent CD3 Cells [Pending] , Absolute CD3 Count [Pending], Percent CD4 Cells [Pending], Absolute CD4 Count [Pending], T-Lymphocyte CD4/CD8 Ratio [Pending], Percent CD8 Cells [Pending], Absolute CD8 Count [Pending], HIV-1 RNA (PCR) log10 Value [Pending], HIV-1 RNA Ultraquantitative (PCR) [Pending] Height (Feet): 5 Height (Inches): 6.00 Weight (Pounds): 169 General Appearance: alert EENT: TMs normal Neck: normal alignment Cardiovascular: normal rate Respiratory/Chest: no accessory muscle use Abdomen: soft Extremities: non-tender Edema: no edema noted Leg (L), no edema noted Leg (R) Edema: mild edema Neurologic: no motor/sensory deficits Skin: normal pigmentation Ricki Edmondson Nov 04, 2016 08:27
[2016-11-04] MEDS ORDERED: Bactrim DS (160mg/800mg) tab ORAL SCH (09:00)
[2016-11-04] MEDS: DULoxetine 30mg cap ORAL SCH (09:30)
[2016-11-04] MEDS: Topiramate 25mg tab ORAL SCH ×2 (10:00→22:37)
[2016-11-04] MEDS: oxyCONTIN 10mg tab ORAL SCH (10:00)
[2016-11-04] MEDS: Methocarbamol 750mg tab ORAL SCH ×3 (10:00→17:48)
[2016-11-04] MEDS: Lisinopril 2.5mg tab ORAL SCH (11:00)
[2016-11-04] MEDS: Azithromycin 250mg tab ORAL SCH (14:00)
[2016-11-04 16:11] LABS: CD3 ABSOLUTE 1273 /uL (622-2402); CD4 ABSOLUTE 657 /uL (359-1519); CD8 ABSOLUTE 599 /uL (109-897); LYMPHOCYTES ABSOLUTE 1.9 x10E3/uL (0.7-3.1); LYMPHS 13 % (.); NRBC 0 % (0 - 0); WBC 14.8 x10E3/uL (3.4-10.8)
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
--- NOTE | 2016-11-04 16:48 | Cardiac Electrophysiology PN ---
Assessment/Plan Assessment/Plan 1. Sinus Tachycardia due to sepsis and pneumonia. There is no evidence of atrial fibrillation. Echocardiogram showed normal left ventricle systolic function. 2. Hypertension, on lisinopril 5 mg daily. 3. Pneumonia, on Zithromax, cefepime, and vancomycin. 4. Human immunodeficiency virus, on Bactrim and Tivicay. 5. Depression, on Cymbalta and lisinopril. HEAVENLY RN Subjective Subjective Alert in NAD. No arrhythmias on tele. No chest pain or SOB. Objective Last 24 Hour Vital Signs Date Time Temp Pulse Resp B/P Pulse Ox O2 Delivery O2 Flow Rate FiO2 11/04/16 11:57 98.0 125 18 117/75 100 Room Air 11/04/16 08:00 97.1 125 18 113/77 100 11/04/16 07:19 Nasal Cannula 2.0 28 11/04/16 07:19 97 Nasal Cannula 2.0 28 11/04/16 07:14 101 16 Nasal Cannula 2.0 28 11/04/16 04:43 98.1 116 20 117/75 96 Room Air 11/04/16 04:00 114 11/04/16 00:42 98.1 117 20 125/75 100 Nasal Cannula 2.0 11/03/16 20:00 118 11/03/16 20:00 98.8 60 18 115/73 Nasal Cannula 2.0 96 11/03/16 19:28 Nasal Cannula 2.0 28 11/03/16 19:27 102 16 Nasal Cannula 2.0 28 11/03/16 19:27 96 Nasal Cannula 2.0 28 Intake and Output 11/03/16 11/04/16 19:00 07:00 Intake Total 420 ml Output Total 750 ml 525 ml Balance -750 ml -105 ml Intake Oral 420 ml Output Urine Total 750 ml 525 ml Microbiology Date/Time Source Procedure Growth Status 11/02/16 15:23 Blood Blood Culture - Preliminary NO GROWTH AFTER 24 HOURS Resulted 11/02/16 15:23 Blood Blood Culture - Preliminary NO GROWTH AFTER 24 HOURS Resulted 11/02/16 15:35 Nasal Nares Influenza Types A,B Antigen (NEHEMIAH) - Final Complete Objective HEAD AND NECK: No JVD. He has lymph nodes around his neck, submandibular and posterior cervical area. LUNGS: Clear. CARDIOVASCULAR: Regular S1 and S2 with no gallop or murmur. ABDOMEN: Soft. EXTREMITIES: No pitting edema. KURT ALEGRIA Nov 04, 2016 16:48
--- NOTE | 2016-11-04 17:22 | Infectious Diseases Prog Note ---
Assessment/Plan Problems: (1) CAP (community acquired pneumonia) Assessment & Plan: continue cefepime ,vancomycin and zithromax to cover atypical organisms, await sputum culture, no need for bactrim since his CD4 is more than 200 , so no need for for PJP prophylaxis (2) HIV (human immunodeficiency virus infection) Assessment & Plan: resume previous HIV meds, await viral load . CD4 counts is 657 (3) HTN (hypertension) Assessment & Plan: stable continue po meds. (4) Depression Assessment & Plan: stable , continue cymbalta Subjective Constitutional: Reports: no symptoms HEENT: Reports: congestion Respiratory: Reports: dry cough Breasts: Reports: no symptoms Cardiovascular: Reports: no symptoms Gastrointestinal/Abdominal: Reports: no symptoms Genitourinary: Reports: no symptoms Neurologic: Reports: no symptoms Psychiatric: Reports: no symptoms Skin: Reports: no symptoms Endocrine: Reports: no symptoms Allergies: Coded Allergies: No Known Allergies (Unverified , 01/08/13) Objective Vital Signs Last 24 Hour Vital Signs Date Time Temp Pulse Resp B/P Pulse Ox O2 Delivery O2 Flow Rate FiO2 11/04/16 16:00 97.0 127 20 92/54 Nasal Cannula 2.0 96 11/04/16 11:57 98.0 125 18 117/75 100 Room Air 11/04/16 08:00 97.1 125 18 113/77 100 11/04/16 07:19 Nasal Cannula 2.0 11/04/16 07:19 97 Nasal Cannula 2.0 11/04/16 07:14 101 16 Nasal Cannula 2.0 11/04/16 04:43 98.1 116 20 117/75 96 Room Air 11/04/16 04:00 114 11/04/16 00:42 98.1 117 20 125/75 100 Nasal Cannula 2.0 11/03/16 20:00 118 11/03/16 20:00 98.8 60 18 115/73 Nasal Cannula 2.0 96 11/03/16 19:28 Nasal Cannula 2.0 28 11/03/16 19:27 102 16 Nasal Cannula 2.0 11/03/16 19:27 96 Nasal Cannula 2.0 28 Height (Feet): 5 Height (Inches): 6.00 Weight (Pounds): 169 General Appearance: WD/WN, no acute distress HEENT: normocephalic, atraumatic, anicteric, mucous membranes moist Respiratory/Chest: chest wall non-tender, no respiratory distress, no accessory muscle use, decreased breath sounds, crackles/rales Cardiovascular: normal peripheral pulses, normal rate, regular rhythm, no gallop/murmur Abdomen: normal bowel sounds, soft, non tender, no organomegaly, non distended , no mass Extremities: no cyanosis, no clubbing Skin: no rash, no lesions, no ulcers Microbiology Date/Time Source Procedure Growth Status 11/02/16 15:23 Blood Blood Culture - Preliminary NO GROWTH AFTER 24 HOURS Resulted 11/02/16 15:23 Blood Blood Culture - Preliminary NO GROWTH AFTER 24 HOURS Resulted 11/02/16 15:35 Nasal Nares Influenza Types A,B Antigen (NEHEMIAH) - Final Complete Current Medications Medications (Trade) Dose Ordered Sig/Christie Route PRN Reason Start Time Stop Time Status Last Admin Dose Admin Acetaminophen (Tylenol) 650 mg Q4H PRN ORAL fever 11/02/16 19:15 12/02/16 19:14 Al Hydroxide/Mg Hydroxide (Mylanta II) 30 ml Q6H PRN ORAL dyspepsia 11/02/16 19:15 12/02/16 19:14 Albuterol/ Ipratropium 3 ml 3 ml Q4H PRN HHN Shortness of Breath 11/02/16 19:15 11/07/16 19:14 Azithromycin (Zithromax) 250 mg DAILY ORAL 11/03/16 09:00 11/10/16 08:59 11/03/16 09:21 Cefepime HCl/ Dextrose (Maxipime/D5W 50ml) 50 ml @ 100 mls/hr EVERY 12 HOURS IV 11/02/16 21:00 11/09/16 20:59 11/03/16 21:35 Clonidine HCl 0.1 mg 0.1 mg Q4H PRN ORAL For High Blood Pressure 11/03/16 01:45 12/03/16 01:44 Duloxetine HCl (Cymbalta) 60 mg DAILY ORAL 11/03/16 09:00 12/03/16 08:59 11/03/16 09:20 Escitalopram Oxalate (Lexapro) 10 mg DAILY ORAL 11/03/16 09:00 12/03/16 08:59 11/03/16 09:21 Heparin Sodium (Porcine) (Heparin 5000 units/ml) 5,000 units EVERY 12 HOURS SUBQ 11/02/16 21:00 12/02/16 20:59 11/02/16 22:19 Lisinopril (Zestril) 5 mg DAILY ORAL 11/03/16 09:00 12/03/16 08:59 11/03/16 09:21 Methocarbamol (Robaxin) 750 mg TID ORAL 11/03/16 09:00 12/03/16 08:59 11/03/16 18:16 Nitroglycerin (Ntg) 0.4 mg Q5M PRN SL Prn Chest Pain 11/02/16 19:15 12/02/16 19:14 Ondansetron HCl (Zofran) 4 mg Q6H PRN IVP Nausea & Vomiting 11/02/16 19:15 12/02/16 19:14 Oxycodone HCl (OxyCONTIN) 30 mg DAILY ORAL 11/03/16 09:00 11/10/16 08:59 Polyethylene Glycol (Miralax) 17 gm DAILYPRN PRN ORAL Constipation 11/02/16 19:15 12/02/16 19:14 Promethazine HCl/ Codeine (Phenergan with Codeine) 5 ml Q4H PRN ORAL For Cough 11/02/16 19:15 12/02/16 19:14 Quetiapine Fumarate (SEROquel) 100 mg DAILY ORAL 11/03/16 09:00 12/03/16 08:59 11/03/16 09:21 Temazepam (Restoril) 15 mg HSPRN PRN ORAL Insomnia 11/02/16 19:15 11/09/16 19:14 11/03/16 21:35 Topiramate (Topamax) 50 mg EVERY 12 HOURS ORAL 11/02/16 21:00 12/02/16 20:59 11/03/16 21:35 Vancomycin HCl/ Dextrose (Vancomycin/D5W 250ml) 250 ml @ 167 mls/hr Q12HR@0000,1200 IVPB 11/03/16 11:00 11/08/16 10:59 11/04/16 01:15 Stanley Sofia M.D. Nov 04, 2016 17:22
[2016-11-04] MEDS: Heparin 5000 units/ml inj SUBQ SCH ×2 (21:00→22:39)
[2016-11-05 00:30] VITALS: BP 98/62
[2016-11-05 04:14] VITALS: BP 108/70
[2016-11-05 08:00] VITALS: BP 108/68
[2016-11-05] MEDS: Heparin 5000 units/ml inj SUBQ SCH ×2 (09:00→21:48)
[2016-11-05] MEDS: DULoxetine 30mg cap ORAL SCH (09:56)
[2016-11-05] MEDS: Azithromycin 250mg tab ORAL SCH (09:56)
[2016-11-05] MEDS: oxyCONTIN 10mg tab ORAL SCH (09:56)
[2016-11-05] MEDS: Lisinopril 2.5mg tab ORAL SCH (09:57)
[2016-11-05] MEDS: Topiramate 25mg tab ORAL SCH ×2 (09:57→21:47)
[2016-11-05 10:55] LABS: BASOPHILS % (AUTO) 0.5 % (0.0-2.0); EOSINOPHILS % (AUTO) 0.1 % (0.0-3.0); LYMPHOCYTES % (AUTO) 9.1 % (20.0-45.0); MEAN CORPUSCULAR HGB CONC 33.1 G/DL (32.0-36.0); MEAN CORPUSCULAR VOLUME 91 FL (80-99); MEAN PLATELET VOLUME 6.4 FL (6.5-10.1); MONOCYTES % (AUTO) 6.3 % (1.0-10.0); PLATELET COUNT 145 K/UL (150-450); RED BLOOD COUNT 3.84 M/UL (4.70-6.10); RED CELL DISTRIBUTION WIDTH 13.7 % (11.6-14.8); WHITE BLOOD COUNT 14.4 K/UL (4.8-10.8)
[2016-11-05 12:00] VITALS: BP 91/65
[2016-11-05] MEDS: Methocarbamol 750mg tab ORAL SCH ×2 (12:09→18:45)
--- NOTE | 2016-11-05 14:11 | General Progress Note ---
Assessment/Plan Assessment/Plan IMPRESSION: 1. Leukocytosis. Likely 2/2 underlying infection, stable 2. Anemia 2/2 chronic disease 3. Thrombocytopenia. Potentially 2/2 infection 4. Decreased H/H rule out GI bleed 5. Probable pneumonia. 6. Mild with fatty infiltration. 7. Community acquired pneumonia. 8. History of human-immunodeficiency virus. 9. Dehydration. 10. Sinus tachycardia. RECOMMENDATIONS: 1. Monitor counts. 2. Peripheral smear is wnl 3. Antibiotics as needed. 4. Pain control. 5. DVT prophylaxis with heparin. 6. Continue HIV meds per ID 7. Hepatitis panel is negative 8. Follow up on ID, Pulmonary and Cardiology recommendations 9. Discussed with staff. Thank you, Ricki Edmondson MD Subjective Constitutional: Reports: no symptoms HEENT: Reports: no symptoms Cardiovascular: Reports: no symptoms Respiratory: Reports: no symptoms Gastrointestinal/Abdominal: Reports: no symptoms Genitourinary: Reports: no symptoms Neurologic/Psychiatric: Reports: no symptoms Endocrine: Reports: no symptoms Hematologic/Lymphatic: Reports: anemia Allergies: Coded Allergies: No Known Allergies (Unverified , 01/08/13) Subjective stable, no complaints, no fevers, chills Objective Last 24 Hour Vital Signs Date Time Temp Pulse Resp B/P Pulse Ox O2 Delivery O2 Flow Rate FiO2 11/05/16 12:00 114 11/05/16 12:00 96.1 120 20 91/65 98 Nasal Cannula 2.0 11/05/16 09:57 108/68 11/05/16 08:00 97.5 115 20 108/68 100 Room Air 11/05/16 08:00 103 11/05/16 07:30 102 20 Nasal Cannula 2.0 28 11/05/16 07:30 Nasal Cannula 2.0 28 11/05/16 07:30 97 Nasal Cannula 2.0 28 11/05/16 04:14 97.9 94 19 108/70 97 Room Air 11/05/16 04:00 106 11/05/16 00:30 111 20 98/62 97 Nasal Cannula 2.0 11/05/16 00:00 112 11/04/16 23:47 98.6 118 19 83/55 95 Room Air 11/04/16 20:00 97.7 117 20 94/65 Nasal Cannula 2.0 100 11/04/16 20:00 123 11/04/16 19:20 Nasal Cannula 2.0 28 11/04/16 19:20 103 14 Nasal Cannula 2.0 28 11/04/16 19:20 99 Nasal Cannula 2.0 28 11/04/16 16:00 97.0 127 20 92/54 Nasal Cannula 2.0 96 11/04/16 16:00 122 Intake and Output 11/04/16 11/05/16 19:00 07:00 Intake Total 240 ml 650 ml Output Total 300 ml Balance 240 ml 350 ml Intake Oral 240 ml 400 ml IV Total 250 ml Output Urine Total 300 ml # Voids 2 Laboratory Tests 11/04/16 22:50: Vancomycin Level Trough 18.0H 11/05/16 10:40: White Blood Count 14.4H, Red Blood Count 3.84L, Hemoglobin 11.5L, Hematocrit 34.8L, Mean Corpuscular Volume 91, Mean Corpuscular Hemoglobin 30.0, Mean Corpuscular Hemoglobin Concent 33.1, Red Cell Distribution Width 13.7, Platelet Count 145L, Mean Platelet Volume 6.4L, Neutrophils (%) (Auto) 84.0H, Lymphocytes (%) (Auto) 9.1L, Monocytes (%) (Auto) 6.3, Eosinophils (%) (Auto) 0.1, Basophils (%) (Auto) 0.5 Height (Feet): 5 Height (Inches): 6.00 Weight (Pounds): 169 General Appearance: no apparent distress EENT: TMs normal Neck: supple Cardiovascular: regular rhythm Respiratory/Chest: lungs clear Abdomen: soft Extremities: non-tender Edema: 1+ Leg (L), 1+ Leg (R) Edema: mild edema Neurologic: alert Skin: warm/dry Ricki Edmondson Nov 05, 2016 14:11
--- NOTE | 2016-11-05 14:12 | Cardiology Report ---
APPROVED REPORT EKG Measurement Heart [id number] Sinus tachycardia Possible Left atrial enlargement Borderline ECG
--- NOTE | 2016-11-05 15:29 | Cardiac Electrophysiology PN ---
Assessment/Plan Assessment/Plan 1. Sinus Tachycardia due to sepsis and pneumonia. There is no evidence of atrial fibrillation. Echocardiogram showed normal left ventricle systolic function. 2. Hypertension, on lisinopril 5 mg daily. 3. Pneumonia, on Zithromax, cefepime, and vancomycin. 4. Human immunodeficiency virus, on Bactrim and Tivicay. 5. Depression, on Cymbalta and lisinopril. HEAVENLY RN DC tele. Subjective Subjective Alert in NAD. No chest pain or SOB. Objective Last 24 Hour Vital Signs Date Time Temp Pulse Resp B/P Pulse Ox O2 Delivery O2 Flow Rate FiO2 11/05/16 12:00 114 11/05/16 12:00 96.1 120 20 91/65 98 Nasal Cannula 2.0 11/05/16 09:57 108/68 11/05/16 08:00 97.5 115 20 108/68 100 Room Air 11/05/16 08:00 103 11/05/16 07:30 102 20 Nasal Cannula 2.0 28 11/05/16 07:30 Nasal Cannula 2.0 28 11/05/16 07:30 97 Nasal Cannula 2.0 28 11/05/16 04:14 97.9 94 19 108/70 97 Room Air 11/05/16 04:00 106 11/05/16 00:30 111 20 98/62 97 Nasal Cannula 2.0 11/05/16 00:00 112 11/04/16 23:47 98.6 118 19 83/55 95 Room Air 11/04/16 20:00 97.7 117 20 94/65 Nasal Cannula 2.0 100 11/04/16 20:00 123 11/04/16 19:20 Nasal Cannula 2.0 28 11/04/16 19:20 103 14 Nasal Cannula 2.0 28 11/04/16 19:20 99 Nasal Cannula 2.0 28 11/04/16 16:00 97.0 127 20 92/54 Nasal Cannula 2.0 96 11/04/16 16:00 122 Intake and Output 11/04/16 11/05/16 19:00 07:00 Intake Total 240 ml 650 ml Output Total 300 ml Balance 240 ml 350 ml Intake Oral 240 ml 400 ml IV Total 250 ml Output Urine Total 300 ml # Voids 2 Laboratory Tests Test 11/04/16 22:50 11/05/16 10:40 Vancomycin Level Trough 18.0 ug/mL (5.0-12.0) H White Blood Count 14.4 K/UL (4.8-10.8) H Red Blood Count 3.84 M/UL (4.70-6.10) L Hemoglobin 11.5 G/DL (14.2-18.0) L Hematocrit 34.8 % (42.0-52.0) L Mean Corpuscular Volume 91 FL (80-99) Mean Corpuscular Hemoglobin 30.0 PG (27.0-31.0) Mean Corpuscular Hemoglobin Concent 33.1 G/DL (32.0-36.0) Red Cell Distribution Width 13.7 % (11.6-14.8) Platelet Count 145 K/UL (150-450) L Mean Platelet Volume 6.4 FL (6.5-10.1) L Neutrophils (%) (Auto) 84.0 % (45.0-75.0) H Lymphocytes (%) (Auto) 9.1 % (20.0-45.0) L Monocytes (%) (Auto) 6.3 % (1.0-10.0) Eosinophils (%) (Auto) 0.1 % (0.0-3.0) Basophils (%) (Auto) 0.5 % (0.0-2.0) Microbiology Date/Time Source Procedure Growth Status 11/03/16 06:40 Nasal Nares MRSA Culture - Final NO METHICILLIN RESISTANT STAPH AUREUS... Complete 11/02/16 15:35 Nasal Nares Influenza Types A,B Antigen (NEHEMIAH) - Final Complete 11/03/16 06:40 Rectum VRE Culture - Final NO VANCOMYCIN RESISTANT ENTEROCOCCUS ... Complete Objective HEAD AND NECK: No JVD. He has lymph nodes around his neck, submandibular and posterior cervical area. LUNGS: Clear. CARDIOVASCULAR: Regular S1 and S2 with no gallop or murmur. ABDOMEN: Soft. EXTREMITIES: No pitting edema. KURT ALEGRIA Nov 05, 2016 15:29
[2016-11-05 16:00] VITALS: BP 109/67
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
--- NOTE | 2016-11-05 17:45 | Infectious Diseases Prog Note ---
Assessment/Plan Problems: (1) CAP (community acquired pneumonia) Assessment & Plan: continue cefepime ,vancomycin and zithromax to cover atypical organisms, await sputum culture, no need for bactrim since his CD4 is more than 200 , so no need for for PJP prophylaxis (2) HIV (human immunodeficiency virus infection) Assessment & Plan: with high CD4 counts , resume previous HIV meds which he is on, descovy and tivicay , await viral load . CD4 counts is 657 (3) HTN (hypertension) Assessment & Plan: stable continue po meds. (4) Depression Assessment & Plan: stable , continue cymbalta Subjective Constitutional: Reports: no symptoms HEENT: Reports: no symptoms Respiratory: Reports: no symptoms Breasts: Reports: no symptoms Cardiovascular: Reports: no symptoms Gastrointestinal/Abdominal: Reports: other - right side pain Genitourinary: Reports: no symptoms Neurologic: Reports: no symptoms Psychiatric: Reports: no symptoms Skin: Reports: no symptoms Allergies: Coded Allergies: No Known Allergies (Unverified , 01/08/13) Objective Vital Signs Last 24 Hour Vital Signs Date Time Temp Pulse Resp B/P Pulse Ox O2 Delivery O2 Flow Rate FiO2 11/05/16 16:00 96.0 104 20 109/67 Nasal Cannula 2.0 94 11/05/16 12:00 114 11/05/16 12:00 96.1 120 20 91/65 98 Nasal Cannula 2.0 11/05/16 09:57 108/68 11/05/16 08:00 97.5 115 20 108/68 100 Room Air 11/05/16 08:00 103 11/05/16 07:30 102 20 Nasal Cannula 2.0 28 11/05/16 07:30 Nasal Cannula 2.0 28 11/05/16 07:30 97 Nasal Cannula 2.0 28 11/05/16 04:14 97.9 94 19 108/70 97 Room Air 11/05/16 04:00 106 11/05/16 00:30 111 20 98/62 97 Nasal Cannula 2.0 11/05/16 00:00 112 11/04/16 23:47 98.6 118 19 83/55 95 Room Air 11/04/16 20:00 97.7 117 20 94/65 Nasal Cannula 2.0 100 11/04/16 20:00 123 11/04/16 19:20 Nasal Cannula 2.0 28 11/04/16 19:20 103 14 Nasal Cannula 2.0 11/04/16 19:20 99 Nasal Cannula 2.0 28 Height (Feet): 5 Height (Inches): 6.00 Weight (Pounds): 169 General Appearance: WD/WN, no acute distress HEENT: normocephalic, atraumatic, anicteric Respiratory/Chest: chest wall non-tender, lungs clear, normal breath sounds, no respiratory distress, no accessory muscle use, decreased breath sounds Cardiovascular: normal peripheral pulses, normal rate, regular rhythm, no gallop/murmur Abdomen: normal bowel sounds, soft, non tender, no organomegaly, non distended , no mass Extremities: no cyanosis, no clubbing Skin: no rash, no lesions, no ulcers Microbiology Date/Time Source Procedure Growth Status 11/03/16 06:40 Nasal Nares MRSA Culture - Final NO METHICILLIN RESISTANT STAPH AUREUS... Complete 11/03/16 06:40 Rectum VRE Culture - Final NO VANCOMYCIN RESISTANT ENTEROCOCCUS ... Complete Laboratory Tests Test 11/04/16 22:50 11/05/16 10:40 Vancomycin Level Trough 18.0 ug/mL (5.0-12.0) H White Blood Count 14.4 K/UL (4.8-10.8) H Red Blood Count 3.84 M/UL (4.70-6.10) L Hemoglobin 11.5 G/DL (14.2-18.0) L Hematocrit 34.8 % (42.0-52.0) L Mean Corpuscular Volume 91 FL (80-99) Mean Corpuscular Hemoglobin 30.0 PG (27.0-31.0) Mean Corpuscular Hemoglobin Concent 33.1 G/DL (32.0-36.0) Red Cell Distribution Width 13.7 % (11.6-14.8) Platelet Count 145 K/UL (150-450) L Mean Platelet Volume 6.4 FL (6.5-10.1) L Neutrophils (%) (Auto) 84.0 % (45.0-75.0) H Lymphocytes (%) (Auto) 9.1 % (20.0-45.0) L Monocytes (%) (Auto) 6.3 % (1.0-10.0) Eosinophils (%) (Auto) 0.1 % (0.0-3.0) Basophils (%) (Auto) 0.5 % (0.0-2.0) Current Medications Medications (Trade) Dose Ordered Sig/Christie Route PRN Reason Start Time Stop Time Status Last Admin Dose Admin Acetaminophen (Tylenol) 650 mg Q4H PRN ORAL fever 11/02/16 19:15 12/02/16 19:14 Al Hydroxide/Mg Hydroxide (Mylanta II) 30 ml Q6H PRN ORAL dyspepsia 11/02/16 19:15 12/02/16 19:14 Albuterol/ Ipratropium 3 ml 3 ml Q4H PRN HHN Shortness of Breath 11/02/16 19:15 11/07/16 19:14 Azithromycin (Zithromax) 250 mg DAILY ORAL 11/03/16 09:00 11/10/16 08:59 11/05/16 09:56 Cefepime HCl/ Dextrose (Maxipime/D5W 50ml) 50 ml @ 100 mls/hr EVERY 12 HOURS IV 11/02/16 21:00 11/09/16 20:59 11/05/16 09:58 Clonidine HCl 0.1 mg 0.1 mg Q4H PRN ORAL For High Blood Pressure 11/03/16 01:45 12/03/16 01:44 Duloxetine HCl (Cymbalta) 60 mg DAILY ORAL 11/03/16 09:00 12/03/16 08:59 11/05/16 09:56 Escitalopram Oxalate (Lexapro) 10 mg DAILY ORAL 11/03/16 09:00 12/03/16 08:59 11/05/16 09:56 Heparin Sodium (Porcine) (Heparin 5000 units/ml) 5,000 units EVERY 12 HOURS SUBQ 11/02/16 21:00 12/02/16 20:59 11/02/16 22:19 Lisinopril (Zestril) 5 mg DAILY ORAL 11/03/16 09:00 12/03/16 08:59 11/05/16 09:57 Methocarbamol (Robaxin) 750 mg TID ORAL 11/03/16 09:00 12/03/16 08:59 11/05/16 12:09 Nitroglycerin (Ntg) 0.4 mg Q5M PRN SL Prn Chest Pain 11/02/16 19:15 12/02/16 19:14 Ondansetron HCl (Zofran) 4 mg Q6H PRN IVP Nausea & Vomiting 11/02/16 19:15 12/02/16 19:14 Oxycodone HCl (OxyCONTIN) 30 mg DAILY ORAL 11/03/16 09:00 11/10/16 08:59 11/05/16 09:56 Polyethylene Glycol (Miralax) 17 gm DAILYPRN PRN ORAL Constipation 11/02/16 19:15 12/02/16 19:14 Promethazine HCl/ Codeine (Phenergan with Codeine) 5 ml Q4H PRN ORAL For Cough 11/02/16 19:15 12/02/16 19:14 Quetiapine Fumarate (SEROquel) 100 mg DAILY ORAL 11/03/16 09:00 12/03/16 08:59 11/05/16 09:57 Temazepam (Restoril) 15 mg HSPRN PRN ORAL Insomnia 11/02/16 19:15 11/09/16 19:14 11/03/16 21:35 Topiramate (Topamax) 50 mg EVERY 12 HOURS ORAL 11/02/16 21:00 12/02/16 20:59 11/05/16 09:57 Vancomycin HCl/ Dextrose (Vancomycin/D5W 250ml) 250 ml @ 167 mls/hr Q12HR@0000,1200 IVPB 11/03/16 11:00 11/08/16 10:59 11/05/16 12:09 Stanley Sofia M.D. Nov 05, 2016 17:45
[2016-11-05 20:00] VITALS: BP 107/70
[2016-11-05] MEDS ORDERED: Mylanta II UD 30ml ORAL PRN (20:00)
[2016-11-05] MEDS ORDERED: Promethazine/Codeine 5ml UD ORAL PRN (20:00)
[2016-11-05] MEDS ORDERED: Miralax 17gm pkt ORAL PRN (20:00)
[2016-11-05] MEDS ORDERED: DuoNeb 0.5-3(2.5)mg/3ml neb HHN PRN (20:00)
[2016-11-05] MEDS ORDERED: TIVICAY50 MG ORAL ×2 (20:22→20:25)
[2016-11-05] MEDS ORDERED: FENTANYL1 EAC1 TOPIC (20:34)
[2016-11-06] VITALS (7 sets, daily range): BP systolic 92–124; BP diastolic 57–76
[2016-11-06 06:51] LABS: BASOPHILS % (AUTO) 0.8 % (0.0-2.0); EOSINOPHILS % (AUTO) 0.2 % (0.0-3.0); LYMPHOCYTES % (AUTO) 8.6 % (20.0-45.0); MEAN CORPUSCULAR HEMOGLOBIN 30.1 PG (27.0-31.0); MEAN CORPUSCULAR HGB CONC 33.5 G/DL (32.0-36.0); MEAN CORPUSCULAR VOLUME 90 FL (80-99); MEAN PLATELET VOLUME 7.7 FL (6.5-10.1); MONOCYTES % (AUTO) 7.2 % (1.0-10.0); NEUTROPHILS % (AUTO) 83.2 % (45.0-75.0); PLATELET COUNT 163 K/UL (150-450); RED BLOOD COUNT 3.69 M/UL (4.70-6.10); RED CELL DISTRIBUTION WIDTH 14.3 % (11.6-14.8); WHITE BLOOD COUNT 15.5 K/UL (4.8-10.8)
[2016-11-06] MEDS ORDERED: Lisinopril 2.5mg tab ORAL SCH (09:00)
[2016-11-06] MEDS: Heparin 5000 units/ml inj SUBQ SCH ×2 (10:06→21:50)
[2016-11-06] MEDS: Topiramate 25mg tab ORAL SCH ×2 (10:07→21:47)
[2016-11-06] MEDS: oxyCONTIN 10mg tab ORAL SCH (10:07)
[2016-11-06] MEDS: Azithromycin 250mg tab ORAL SCH (10:08)
[2016-11-06] MEDS: DULoxetine 30mg cap ORAL SCH (10:09)
[2016-11-06] MEDS: Methocarbamol 750mg tab ORAL SCH ×3 (10:10→18:01)
--- NOTE | 2016-11-06 12:40 | General Progress Note ---
Assessment/Plan Assessment/Plan IMPRESSION: 1. Leukocytosis. Likely 2/2 underlying infection, stable 2. Anemia 2/2 chronic disease 3. Thrombocytopenia. Potentially 2/2 infection 4. Decreased H/H rule out GI bleed 5. Probable pneumonia. Rx abx 6. Mild with fatty infiltration. 7. Community acquired pneumonia. 8. History of human-immunodeficiency virus. 9. Dehydration. 10. Sinus tachycardia. RECOMMENDATIONS: 1. Monitor counts. 2. Peripheral smear is wnl 3. Antibiotics prn 4. Pain control. 5. DVT prophylaxis with heparin. 6. Continue HIV meds per ID 7. Hepatitis panel is negative 8. Follow up on ID, Pulmonary and Cardiology recommendations 9. Discussed with staff. Thank you, iRcki Edmondson MD Subjective Constitutional: Reports: no symptoms HEENT: Reports: no symptoms Cardiovascular: Reports: no symptoms Respiratory: Reports: no symptoms Gastrointestinal/Abdominal: Reports: poor appetite Genitourinary: Reports: no symptoms Neurologic/Psychiatric: Reports: no symptoms Endocrine: Reports: no symptoms Hematologic/Lymphatic: Reports: anemia Allergies: Coded Allergies: No Known Allergies (Unverified , 01/08/13) Subjective stable, no complaints, no fevers, no chills Objective Last 24 Hour Vital Signs Date Time Temp Pulse Resp B/P Pulse Ox O2 Delivery O2 Flow Rate FiO2 11/06/16 10:08 124/76 11/06/16 08:00 96.8 109 18 124/76 97 Room Air 11/06/16 07:35 97 Nasal Cannula 2.0 28 11/06/16 07:33 106 18 Nasal Cannula 2.0 28 11/06/16 07:32 Nasal Cannula 2.0 11/06/16 04:00 97.5 110 20 118/63 95 Room Air 11/06/16 04:00 97.5 110 20 118/63 95 Room Air 11/06/16 00:00 97.2 107 20 112/62 97 Room Air 11/05/16 20:00 97.2 102 20 107/70 Room Air 96 11/05/16 19:30 96 Nasal Cannula 2.0 28 11/05/16 19:30 100 20 Nasal Cannula 2.0 28 11/05/16 19:30 Nasal Cannula 2.0 28 11/05/16 16:00 96.0 104 20 109/67 Nasal Cannula 2.0 94 11/05/16 16:00 111 Intake and Output 11/05/16 11/06/16 19:00 07:00 Intake Total 934 ml 1250 ml Output Total 1000 ml Balance 934 ml 250 ml Intake Oral 500 ml 950 ml IV Total 434 ml 300 ml Output Urine Total 1000 ml # Voids 2 4 # Bowel Movements 1 Laboratory Tests 11/06/16 05:30: White Blood Count 15.5H, Red Blood Count 3.69L, Hemoglobin 11.1L, Hematocrit 33.2L, Mean Corpuscular Volume 90, Mean Corpuscular Hemoglobin 30.1, Mean Corpuscular Hemoglobin Concent 33.5, Red Cell Distribution Width 14.3, Platelet Count 163, Mean Platelet Volume 7.7, Neutrophils (%) (Auto) 83.2H, Lymphocytes ( %) (Auto) 8.6L, Monocytes (%) (Auto) 7.2, Eosinophils (%) (Auto) 0.2, Basophils (%) (Auto) 0.8 Height (Feet): 5 Height (Inches): 6.00 Weight (Pounds): 169 General Appearance: no apparent distress EENT: TMs normal Neck: supple Cardiovascular: normal rate Respiratory/Chest: normal breath sounds Abdomen: non tender Extremities: non-tender Edema: no edema noted Leg (L), no edema noted Leg (R) Edema: mild edema Neurologic: alert Skin: warm/dry Ricki Edmondson Nov 06, 2016 12:40
--- NOTE | 2016-11-06 14:38 | Cardiology Report ---
APPROVED REPORT EXAM: Two-dimensional and M-mode echocardiogram with Doppler and color Doppler. INDICATION Tachycardia M-Mode DIMENSIONS IVSd0.8 (0.7-1.1cm)Left Atrium (MM)3.3 (1.6-4.0cm) LVDd4.0 (3.5-5.6cm)Aortic Root2.9 (2.0-3.7cm) PWd0.8 (0.7-1.1cm)Aortic Cusp Exc.1.7 (1.5-2.0cm) LVDs2.4 (2.5-4.0cm) PWs0.9 cm Normal left ventricular chamber size, systolic function and wall motion. Left ventricular ejection fraction estimated to be 60-65%. Mild left ventricular hypertrophy. Anterior and posterior pericardial effusion. All other cardiac chamber sizes are within normal limits. Focal aortic valve sclerosis with adequate cusp excursion Thickened mitral valve leaflets with normal excursion. Mild mitral annulus and aortic root calcification. Pulmonic valve is well visualized. Normal tricuspid valve structure. IVC is normal in size with physiologic collapse. A color flow and spectral Doppler study was performed and revealed: No aortic regurgitation. No mitral regurgitation.
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
--- NOTE | 2016-11-06 15:27 | Cardiac Electrophysiology PN ---
Assessment/Plan Assessment/Plan 1. Sinus Tachycardia due to sepsis and pneumonia. There is no evidence of atrial fibrillation. Echocardiogram showed normal left ventricle systolic function. 2. Hypotension. DC lisinopril. Transfer to telemetry.Give IV fluid 1 liter NS. 3. Pneumonia, on Zithromax, cefepime, and vancomycin. 4. Human immunodeficiency virus, on Bactrim and Tivicay. 5. Depression, on Cymbalta and lisinopril. DW RN Subjective Subjective Feels weak and BP has been in 90s but alert in NAD. No chest pain or SOB. RN at bedside. Objective Last 24 Hour Vital Signs Date Time Temp Pulse Resp B/P Pulse Ox O2 Delivery O2 Flow Rate FiO2 11/06/16 14:04 110 18 103/57 96 2.0 11/06/16 12:00 97.3 110 18 92/61 98 Room Air 11/06/16 10:08 124/76 11/06/16 08:00 96.8 109 18 124/76 97 Room Air 11/06/16 07:35 97 Nasal Cannula 2.0 28 11/06/16 07:33 106 18 Nasal Cannula 2.0 28 11/06/16 07:32 Nasal Cannula 2.0 28 11/06/16 04:00 97.5 110 20 118/63 95 Room Air 11/06/16 04:00 97.5 110 20 118/63 95 Room Air 11/06/16 00:00 97.2 107 20 112/62 97 Room Air 11/05/16 20:00 97.2 102 20 107/70 Room Air 96 11/05/16 19:30 96 Nasal Cannula 2.0 28 11/05/16 19:30 100 20 Nasal Cannula 2.0 28 11/05/16 19:30 Nasal Cannula 2.0 28 11/05/16 16:00 96.0 104 20 109/67 Nasal Cannula 2.0 94 11/05/16 16:00 111 Intake and Output 11/05/16 11/06/16 18:59 06:59 Intake Total 934 ml 1250 ml Output Total 1000 ml Balance 934 ml 250 ml Intake Oral 500 ml 950 ml IV Total 434 ml 300 ml Output Urine Total 1000 ml # Voids 2 4 # Bowel Movements 1 Laboratory Tests Test 11/06/16 05:30 White Blood Count 15.5 K/UL (4.8-10.8) H Red Blood Count 3.69 M/UL (4.70-6.10) L Hemoglobin 11.1 G/DL (14.2-18.0) L Hematocrit 33.2 % (42.0-52.0) L Mean Corpuscular Volume 90 FL (80-99) Mean Corpuscular Hemoglobin 30.1 PG (27.0-31.0) Mean Corpuscular Hemoglobin Concent 33.5 G/DL (32.0-36.0) Red Cell Distribution Width 14.3 % (11.6-14.8) Platelet Count 163 K/UL (150-450) Mean Platelet Volume 7.7 FL (6.5-10.1) Neutrophils (%) (Auto) 83.2 % (45.0-75.0) H Lymphocytes (%) (Auto) 8.6 % (20.0-45.0) L Monocytes (%) (Auto) 7.2 % (1.0-10.0) Eosinophils (%) (Auto) 0.2 % (0.0-3.0) Basophils (%) (Auto) 0.8 % (0.0-2.0) Objective HEAD AND NECK: No JVD. He has lymph nodes around his neck, submandibular and posterior cervical area. LUNGS: Clear. CARDIOVASCULAR: Regular S1 and S2 with no gallop or murmur. ABDOMEN: Soft. EXTREMITIES: No pitting edema. KURT ALEGRIA Nov 06, 2016 15:27
[2016-11-06] MEDS ORDERED: Tubing IV Secondary IV ONE (16:38)
[2016-11-06] MEDS ORDERED: NS 275ml ONE (16:38)
--- NOTE | 2016-11-06 18:06 | Infectious Diseases Prog Note ---
Assessment/Plan Problems: (1) CAP (community acquired pneumonia) Assessment & Plan: continue cefepime ,vancomycin and zithromax to cover atypical organisms, await sputum culture.influenza screening is negative (2) HIV (human immunodeficiency virus infection) Assessment & Plan: with high CD4 counts , resume previous HIV meds which he is on, descovy and tivicay , await viral load . CD4 counts is 657 (3) HTN (hypertension) Assessment & Plan: stable continue po meds. (4) Depression Assessment & Plan: stable , continue cymbalta (5) Leukocytosis Assessment & Plan: rule out lung abscess , will order CT chest with contrast Subjective Constitutional: Reports: no symptoms Respiratory: Reports: dry cough Cardiovascular: Reports: no symptoms Gastrointestinal/Abdominal: Reports: no symptoms Genitourinary: Reports: no symptoms Neurologic: Reports: no symptoms Psychiatric: Reports: no symptoms Skin: Reports: no symptoms Allergies: Coded Allergies: No Known Allergies (Unverified , 01/08/13) Subjective had right flank pain with cough , no chest pain or SOB Objective Vital Signs Last 24 Hour Vital Signs Date Time Temp Pulse Resp B/P Pulse Ox O2 Delivery O2 Flow Rate FiO2 11/06/16 16:00 96.8 110 18 94/59 97 Nasal Cannula 2.0 11/06/16 14:04 110 18 103/57 96 2.0 11/06/16 12:00 97.3 110 18 92/61 98 Room Air 11/06/16 10:08 124/76 11/06/16 08:00 96.8 109 18 124/76 97 Room Air 11/06/16 07:35 97 Nasal Cannula 2.0 11/06/16 07:33 106 18 Nasal Cannula 2.0 11/06/16 07:32 Nasal Cannula 2.0 28 11/06/16 04:00 97.5 110 20 118/63 95 Room Air 11/06/16 04:00 97.5 110 20 118/63 95 Room Air 11/06/16 00:00 97.2 107 20 112/62 97 Room Air 11/05/16 20:00 97.2 102 20 107/70 Room Air 96 11/05/16 19:30 96 Nasal Cannula 2.0 28 11/05/16 19:30 100 20 Nasal Cannula 2.0 28 11/05/16 19:30 Nasal Cannula 2.0 28 Height (Feet): 5 Height (Inches): 6.00 Weight (Pounds): 169 General Appearance: WD/WN, no acute distress HEENT: normocephalic, atraumatic, anicteric, mucous membranes moist Respiratory/Chest: chest wall non-tender, normal breath sounds, no respiratory distress, no accessory muscle use Cardiovascular: normal peripheral pulses, normal rate, regular rhythm, no gallop/murmur Abdomen: normal bowel sounds, soft, non tender, no organomegaly, non distended Extremities: no cyanosis, no clubbing Skin: no rash, no lesions, no ulcers Laboratory Tests Test 11/06/16 05:30 White Blood Count 15.5 K/UL (4.8-10.8) H Red Blood Count 3.69 M/UL (4.70-6.10) L Hemoglobin 11.1 G/DL (14.2-18.0) L Hematocrit 33.2 % (42.0-52.0) L Mean Corpuscular Volume 90 FL (80-99) Mean Corpuscular Hemoglobin 30.1 PG (27.0-31.0) Mean Corpuscular Hemoglobin Concent 33.5 G/DL (32.0-36.0) Red Cell Distribution Width 14.3 % (11.6-14.8) Platelet Count 163 K/UL (150-450) Mean Platelet Volume 7.7 FL (6.5-10.1) Neutrophils (%) (Auto) 83.2 % (45.0-75.0) H Lymphocytes (%) (Auto) 8.6 % (20.0-45.0) L Monocytes (%) (Auto) 7.2 % (1.0-10.0) Eosinophils (%) (Auto) 0.2 % (0.0-3.0) Basophils (%) (Auto) 0.8 % (0.0-2.0) Current Medications Medications (Trade) Dose Ordered Sig/Christie Route PRN Reason Start Time Stop Time Status Last Admin Dose Admin Acetaminophen (Tylenol) 650 mg Q4H PRN ORAL fever 11/05/16 20:00 12/05/16 19:59 Al Hydroxide/Mg Hydroxide (Mylanta II) 30 ml Q6H PRN ORAL dyspepsia 11/05/16 20:00 12/05/16 19:59 Albuterol/ Ipratropium (DuoNeb 0.5-3(2.5)mg/3ml) 3 ml Q4H PRN HHN Shortness of Breath 11/05/16 20:00 11/10/16 19:59 Azithromycin (Zithromax) 250 mg DAILY ORAL 11/06/16 09:00 11/13/16 08:59 11/06/16 10:08 Cefepime HCl 1 gm/ Dextrose 50 ml @ 100 mls/hr EVERY 12 HOURS IVPB 11/05/16 21:00 11/12/16 20:59 11/06/16 09:00 Clonidine HCl (Catapres) 0.1 mg Q4H PRN ORAL For SBP > 160mmHg 11/05/16 20:00 12/05/16 19:59 Duloxetine HCl (Cymbalta) 60 mg DAILY ORAL 11/06/16 09:00 12/06/16 08:59 11/06/16 10:09 Escitalopram Oxalate (Lexapro) 10 mg DAILY ORAL 11/06/16 09:00 12/06/16 08:59 11/06/16 10:09 Heparin Sodium (Porcine) (Heparin 5000 units/ml) 5,000 units EVERY 12 HOURS SUBQ 11/05/16 21:00 12/05/16 20:59 11/06/16 10:06 Methocarbamol (Robaxin) 750 mg TID ORAL 11/06/16 09:00 12/06/16 08:59 11/06/16 12:40 Nitroglycerin (Ntg) 0.4 mg Q5M X 3 DOSES PRN SL Prn Chest Pain 11/05/16 19:45 12/05/16 19:44 Ondansetron HCl (Zofran) 4 mg Q6H PRN IVP Nausea & Vomiting 11/05/16 20:00 12/05/16 19:59 Oxycodone HCl (OxyCONTIN) 30 mg DAILY ORAL 11/06/16 09:00 11/13/16 08:59 11/06/16 10:07 Polyethylene Glycol (Miralax) 17 gm DAILYPRN PRN ORAL Constipation 11/05/16 20:00 12/05/16 19:59 Promethazine HCl/ Codeine (Phenergan with Codeine) 5 ml Q4H PRN ORAL For Cough 11/05/16 20:00 12/05/16 19:59 Quetiapine Fumarate (SEROquel) 100 mg DAILY ORAL 11/06/16 09:00 12/06/16 08:59 11/06/16 10:09 Temazepam (Restoril) 15 mg HSPRN PRN ORAL Insomnia 11/05/16 21:00 11/12/16 20:59 Topiramate (Topamax) 50 mg EVERY 12 HOURS ORAL 11/05/16 21:00 12/05/16 20:59 11/06/16 10:07 Vancomycin HCl/ Dextrose (Vancomycin/D5W 250ml) 250 ml @ 167 mls/hr Q12HR@0000,1200 IVPB 11/06/16 00:00 11/11/16 00:00 11/06/16 12:00 Stanley Sofia M.D. Nov 06, 2016 18:06
[2016-11-07 00:10] VITALS: BP 98/63
[2016-11-07 04:31] VITALS: BP 101/57
[2016-11-07 06:59] LABS: BASOPHILS % (AUTO) 0.6 % (0.0-2.0); EOSINOPHILS % (AUTO) 0.4 % (0.0-3.0); LYMPHOCYTES % (AUTO) 11.6 % (20.0-45.0); MEAN CORPUSCULAR HEMOGLOBIN 30.1 PG (27.0-31.0); MEAN CORPUSCULAR VOLUME 89 FL (80-99); MEAN PLATELET VOLUME 7.2 FL (6.5-10.1); MONOCYTES % (AUTO) 5.6 % (1.0-10.0); NEUTROPHILS % (AUTO) 81.8 % (45.0-75.0); PLATELET COUNT 165 K/UL (150-450); RED BLOOD COUNT 3.37 M/UL (4.70-6.10); RED CELL DISTRIBUTION WIDTH 14.3 % (11.6-14.8); WHITE BLOOD COUNT 13.5 K/UL (4.8-10.8)
[2016-11-07] MEDS: Nitroglycerin Subl 0.4mg tab (Bottle Of 25) SL PRN ×2 (07:10→19:58)
[2016-11-07 08:06] VITALS: BP 104/63
[2016-11-07] MEDS: Methocarbamol 750mg tab ORAL SCH ×3 (08:45→17:05)
[2016-11-07] MEDS: Azithromycin 250mg tab ORAL SCH (08:45)
[2016-11-07] MEDS: Topiramate 25mg tab ORAL SCH ×2 (08:45→20:46)
[2016-11-07] MEDS: DULoxetine 30mg cap ORAL SCH (08:45)
[2016-11-07] MEDS: oxyCONTIN 10mg tab ORAL SCH (08:47)
[2016-11-07] MEDS: Heparin 5000 units/ml inj SUBQ SCH ×2 (08:54→20:51)
--- NOTE | 2016-11-07 09:51 | General Progress Note ---
Assessment/Plan Assessment/Plan IMPRESSION: 1. Leukocytosis. Likely 2/2 underlying infection, stable 2. Anemia 2/2 chronic disease 3. Thrombocytopenia. Potentially 2/2 infection 4. Decreased H/H rule out GI bleed 5. Probable pneumonia. Rx abx 6. Mild with fatty infiltration 7. Community acquired pneumonia 8. History of human-immunodeficiency virus 9. Dehydration. 10. Sinus tachycardia. RECOMMENDATIONS: 1. Monitor counts. 2. Peripheral smear is wnl 3. Antibiotics prn 4. Pain control 5. DVT prophylaxis with heparin sq 6. Continue HIV meds per ID 7. CT chest ordered 8. Follow up on ID, Pulmonary and Cardiology recs 9. Discussed with staff Thank you, Myranda Edmondson MD Subjective Constitutional: Reports: no symptoms HEENT: Reports: no symptoms Cardiovascular: Reports: no symptoms Respiratory: Reports: no symptoms Gastrointestinal/Abdominal: Reports: poor appetite Genitourinary: Reports: no symptoms Neurologic/Psychiatric: Reports: no symptoms Endocrine: Reports: no symptoms Hematologic/Lymphatic: Reports: anemia Allergies: Coded Allergies: No Known Allergies (Unverified , 01/08/13) Subjective no complaints, no bleeding Objective Last 24 Hour Vital Signs Date Time Temp Pulse Resp B/P Pulse Ox O2 Delivery O2 Flow Rate FiO2 11/07/16 08:06 97.3 113 20 104/63 93 Nasal Cannula 3.0 11/07/16 07:54 Nasal Cannula 2.0 28 11/07/16 07:51 93 Nasal Cannula 2.0 28 11/07/16 07:50 113 18 Nasal Cannula 2.0 28 11/07/16 07:10 101/57 11/07/16 04:31 97.9 103 20 101/57 95 Nasal Cannula 3.0 95 11/07/16 04:00 101 11/07/16 00:10 97.3 112 20 98/63 96 Nasal Cannula 3.0 96 11/06/16 20:00 95.9 100 20 107/59 96 Nasal Cannula 2.0 11/06/16 19:00 96 Nasal Cannula 2.0 28 11/06/16 19:00 Nasal Cannula 2.0 28 11/06/16 19:00 99 18 Nasal Cannula 2.0 28 11/06/16 16:00 96.8 110 18 94/59 97 Nasal Cannula 2.0 11/06/16 14:04 110 18 103/57 96 2.0 11/06/16 12:00 97.3 110 18 92/61 98 Room Air 11/06/16 10:08 124/76 Intake and Output 11/06/16 11/07/16 19:00 07:00 Intake Total 834 ml 600 ml Output Total 800 ml Balance 834 ml -200 ml Intake Oral 400 ml 600 ml IV Total 434 ml Output Urine Total 800 ml # Voids 2 2 # Bowel Movements 2 Laboratory Tests 11/07/16 05:35: White Blood Count 13.5H, Red Blood Count 3.37L, Hemoglobin 10.2L, Hematocrit 29.9L, Mean Corpuscular Volume 89, Mean Corpuscular Hemoglobin 30.1, Mean Corpuscular Hemoglobin Concent 34.0, Red Cell Distribution Width 14.3, Platelet Count 165, Mean Platelet Volume 7.2, Neutrophils (%) (Auto) 81.8H, Lymphocytes ( %) (Auto) 11.6L, Monocytes (%) (Auto) 5.6, Eosinophils (%) (Auto) 0.4, Basophils (%) (Auto) 0.6 Height (Feet): 5 Height (Inches): 6.00 Weight (Pounds): 169 General Appearance: no apparent distress EENT: TMs normal Neck: supple Cardiovascular: normal rate Respiratory/Chest: lungs clear Abdomen: non tender Extremities: non-tender Edema: 1+ Leg (L), 1+ Leg (R) Edema: mild edema Neurologic: alert Skin: warm/dry MYRANDA EDMONDSON Nov 07, 2016 09:51
[2016-11-07 11:42] VITALS: BP 108/61
[2016-11-07 16:58] VITALS: BP 111/68
[2016-11-07 19:58] VITALS: BP 114/78
[2016-11-08] VITALS: BP 108/63
[2016-11-08 04:22] VITALS: BP 116/75
[2016-11-08 07:33] LABS: BASOPHILS % (AUTO) 0.6 % (0.0-2.0); EOSINOPHILS % (AUTO) 0.5 % (0.0-3.0); LYMPHOCYTES % (AUTO) 10.8 % (20.0-45.0); MEAN CORPUSCULAR HEMOGLOBIN 29.7 PG (27.0-31.0); MEAN CORPUSCULAR HGB CONC 32.7 G/DL (32.0-36.0); MEAN CORPUSCULAR VOLUME 91 FL (80-99); MEAN PLATELET VOLUME 7.4 FL (6.5-10.1); MONOCYTES % (AUTO) 7.7 % (1.0-10.0); NEUTROPHILS % (AUTO) 80.4 % (45.0-75.0); PLATELET COUNT 212 K/UL (150-450); RED CELL DISTRIBUTION WIDTH 13.7 % (11.6-14.8); WHITE BLOOD COUNT 12.4 K/UL (4.8-10.8)
[2016-11-08 08:30] VITALS: BP 120/75
[2016-11-08] MEDS: oxyCONTIN 10mg tab ORAL SCH (09:19)
[2016-11-08] MEDS: Azithromycin 250mg tab ORAL SCH (09:20)
[2016-11-08] MEDS: Methocarbamol 750mg tab ORAL SCH ×3 (09:21→18:08)
[2016-11-08] MEDS: DULoxetine 30mg cap ORAL SCH (09:22)
[2016-11-08] MEDS: Heparin 5000 units/ml inj SUBQ SCH (09:31)
[2016-11-08] MEDS: Topiramate 25mg tab ORAL SCH ×2 (09:32→20:29)
--- NOTE | 2016-11-08 11:09 | General Progress Note ---
Assessment/Plan Assessment/Plan IMPRESSION: 1. Bilateraly PE on CTA 11/08/16 - started on coumadin/lovenox 2. Anemia 2/2 chronic disease 3. Thrombocytopenia. Potentially 2/2 infection, improved 4. Leukocytosis. Likely 2/2 underlying infection, stable 5. Probable pneumonia. Rx abx 6. Mild with fatty infiltration. 7. Community acquired pneumonia. 8. History of human-immunodeficiency virus. 9. Dehydration. 10. Sinus tachycardia. RECOMMENDATIONS: 1. Begin lovenox and coumadin 2. Peripheral smear is wnl 3. Antibiotics prn 4. Monitor counts 5. DVT prophylaxis with heparin. 6. Continue HIV meds per ID 7. Hepatitis panel is negative 8. Follow up on ID, Pulmonary and Cardiology recs 9. Discussed with staff. Thank you, Ricki Edmondson MD Subjective Constitutional: Reports: no symptoms HEENT: Reports: mouth pain Cardiovascular: Reports: no symptoms Respiratory: Reports: no symptoms Gastrointestinal/Abdominal: Reports: poor appetite Genitourinary: Reports: no symptoms Neurologic/Psychiatric: Reports: no symptoms Endocrine: Reports: no symptoms Hematologic/Lymphatic: Reports: anemia Allergies: Coded Allergies: No Known Allergies (Unverified , 01/08/13) Subjective stable, no complaints, no fevers, or chills Objective Last 24 Hour Vital Signs Date Time Temp Pulse Resp B/P Pulse Ox O2 Delivery O2 Flow Rate FiO2 11/08/16 08:36 Room Air 11/08/16 08:36 96 Room Air 11/08/16 08:35 104 18 Room Air 21 11/08/16 04:29 105 11/08/16 04:22 98.6 91 20 116/75 97 Nasal Cannula 2.0 11/08/16 00:00 98.8 108 20 108/63 95 Room Air 2.0 11/07/16 23:56 107 11/07/16 19:58 97.2 106 20 114/78 95 Nasal Cannula 2.0 11/07/16 19:58 114/78 11/07/16 19:35 111 11/07/16 19:34 Nasal Cannula 2.0 28 11/07/16 19:33 106 18 Nasal Cannula 2.0 28 11/07/16 19:33 96 Nasal Cannula 2.0 28 11/07/16 16:58 97.3 114 22 111/68 91 Room Air 11/07/16 11:42 96.8 118 20 108/61 91 Room Air Intake and Output 11/07/16 11/08/16 19:00 07:00 Intake Total 270 ml Balance 270 ml Intake Oral 270 ml # Voids 3 1 # Bowel Movements 1 Laboratory Tests 11/07/16 23:15: Random Vancomycin Level 17.7 11/08/16 06:40: White Blood Count 12.4H, Red Blood Count 3.60L, Hemoglobin 10.7L, Hematocrit 32.7L, Mean Corpuscular Volume 91, Mean Corpuscular Hemoglobin 29.7, Mean Corpuscular Hemoglobin Concent 32.7, Red Cell Distribution Width 13.7, Platelet Count 212, Mean Platelet Volume 7.4, Neutrophils (%) (Auto) 80.4H, Lymphocytes ( %) (Auto) 10.8L, Monocytes (%) (Auto) 7.7, Eosinophils (%) (Auto) 0.5, Basophils (%) (Auto) 0.6 Height (Feet): 5 Height (Inches): 6.00 Weight (Pounds): 169 General Appearance: no apparent distress EENT: TMs normal Neck: supple Cardiovascular: regular rhythm Respiratory/Chest: lungs clear Abdomen: non tender Extremities: non-tender Edema: 1+ Leg (L), 1+ Leg (R) Edema: mild edema Neurologic: alert Skin: warm/dry Ricki Edmondson Nov 08, 2016 11:09
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
[2016-11-08 12:30] VITALS: BP 118/73
[2016-11-08 12:58] LABS: INR 1.1 (0.9-1.1); PROTHROMBIN TIME 11.3 SEC (9.30-11.50)
--- NOTE | 2016-11-08 15:08 | Infectious Diseases Prog Note ---
Assessment/Plan Problems: (1) CAP (community acquired pneumonia) Assessment & Plan: with left flank pain, rule out mas or abscess , will order CT chest , continue cefepime ,vancomycin and zithromax to cover atypical organisms, await sputum culture.influenza screening is negative (2) HIV (human immunodeficiency virus infection) Assessment & Plan: with high CD4 counts , resume previous HIV meds which he is on, descovy and tivicay , await viral load . CD4 counts is 657 (3) HTN (hypertension) Assessment & Plan: stable continue po meds. (4) Depression Assessment & Plan: stable , continue cymbalta (5) Leukocytosis Assessment & Plan: improving , rule out lung abscess , will order CT chest with contrast Subjective Constitutional: Reports: no symptoms HEENT: Reports: no symptoms Respiratory: Reports: no symptoms Breasts: Reports: no symptoms Cardiovascular: Reports: no symptoms Gastrointestinal/Abdominal: Reports: no symptoms Genitourinary: Reports: no symptoms Neurologic: Reports: no symptoms Psychiatric: Reports: no symptoms Skin: Reports: no symptoms Endocrine: Reports: no symptoms Allergies: Coded Allergies: No Known Allergies (Unverified , 01/08/13) Subjective had left flank pain with cough , no chest pain or SOB Objective Vital Signs Last 24 Hour Vital Signs Date Time Temp Pulse Resp B/P Pulse Ox O2 Delivery O2 Flow Rate FiO2 11/08/16 12:30 97.0 115 20 118/73 97 Nasal Cannula 2.0 11/08/16 08:36 Room Air 11/08/16 08:36 96 Room Air 11/08/16 08:35 104 18 Room Air 21 11/08/16 08:30 98.2 123 20 120/75 96 Nasal Cannula 2.0 11/08/16 04:29 105 11/08/16 04:22 98.6 91 20 116/75 97 Nasal Cannula 2.0 11/08/16 00:00 98.8 108 20 108/63 95 Room Air 2.0 11/07/16 23:56 107 11/07/16 19:58 97.2 106 20 114/78 95 Nasal Cannula 2.0 11/07/16 19:58 114/78 11/07/16 19:35 111 11/07/16 19:34 Nasal Cannula 2.0 28 11/07/16 19:33 106 18 Nasal Cannula 2.0 28 11/07/16 19:33 96 Nasal Cannula 2.0 28 11/07/16 16:58 97.3 114 22 111/68 91 Room Air Height (Feet): 5 Height (Inches): 6.00 Weight (Pounds): 169 General Appearance: WD/WN, no acute distress HEENT: normocephalic, atraumatic, anicteric, mucous membranes moist Respiratory/Chest: chest wall non-tender, lungs clear, normal breath sounds, no respiratory distress, no accessory muscle use Cardiovascular: normal peripheral pulses, normal rate, regular rhythm, no gallop/murmur Abdomen: normal bowel sounds, soft, non tender, no organomegaly, non distended , no mass Extremities: no cyanosis, no clubbing Skin: no rash, no lesions, no ulcers Laboratory Tests Test 11/07/16 23:15 11/08/16 06:40 11/08/16 12:15 Random Vancomycin Level 17.7 ug/mL White Blood Count 12.4 K/UL (4.8-10.8) H Red Blood Count 3.60 M/UL (4.70-6.10) L Hemoglobin 10.7 G/DL (14.2-18.0) L Hematocrit 32.7 % (42.0-52.0) L Mean Corpuscular Volume 91 FL (80-99) Mean Corpuscular Hemoglobin 29.7 PG (27.0-31.0) Mean Corpuscular Hemoglobin Concent 32.7 G/DL (32.0-36.0) Red Cell Distribution Width 13.7 % (11.6-14.8) Platelet Count 212 K/UL (150-450) Mean Platelet Volume 7.4 FL (6.5-10.1) Neutrophils (%) (Auto) 80.4 % (45.0-75.0) H Lymphocytes (%) (Auto) 10.8 % (20.0-45.0) L Monocytes (%) (Auto) 7.7 % (1.0-10.0) Eosinophils (%) (Auto) 0.5 % (0.0-3.0) Basophils (%) (Auto) 0.6 % (0.0-2.0) Prothrombin Time 11.3 SEC (9.30-11.50) Prothromb Time International Ratio 1.1 (0.9-1.1) Current Medications Medications (Trade) Dose Ordered Sig/Christie Route PRN Reason Start Time Stop Time Status Last Admin Dose Admin Acetaminophen (Tylenol) 650 mg Q4H PRN ORAL fever 11/05/16 20:00 12/05/16 19:59 Al Hydroxide/Mg Hydroxide (Mylanta II) 30 ml Q6H PRN ORAL dyspepsia 11/05/16 20:00 12/05/16 19:59 Albuterol/ Ipratropium (DuoNeb 0.5-3(2.5)mg/3ml) 3 ml Q4H PRN HHN Shortness of Breath 11/05/16 20:00 11/10/16 19:59 Azithromycin (Zithromax) 250 mg DAILY ORAL 11/06/16 09:00 11/13/16 08:59 11/08/16 09:20 Cefepime HCl 1 gm/ Dextrose 50 ml @ 100 mls/hr EVERY 12 HOURS IVPB 11/05/16 21:00 11/12/16 20:59 11/08/16 09:11 Clonidine HCl (Catapres) 0.1 mg Q4H PRN ORAL For SBP > 160mmHg 11/05/16 20:00 12/05/16 19:59 Duloxetine HCl (Cymbalta) 60 mg DAILY ORAL 11/06/16 09:00 12/06/16 08:59 11/08/16 09:22 Enoxaparin Sodium (Lovenox) 110 mg Q24H SUBQ 11/08/16 13:00 12/08/16 12:59 Escitalopram Oxalate (Lexapro) 10 mg DAILY ORAL 11/06/16 09:00 12/06/16 08:59 11/08/16 09:21 Methocarbamol (Robaxin) 750 mg TID ORAL 11/06/16 09:00 12/06/16 08:59 11/08/16 13:37 Nitroglycerin (Ntg) 0.4 mg Q5M X 3 DOSES PRN SL Prn Chest Pain 11/05/16 19:45 12/05/16 19:44 11/07/16 19:58 Ondansetron HCl (Zofran) 4 mg Q6H PRN IVP Nausea & Vomiting 11/05/16 20:00 12/05/16 19:59 Oxycodone HCl (OxyCONTIN) 30 mg DAILY ORAL 11/06/16 09:00 11/13/16 08:59 11/08/16 09:19 Polyethylene Glycol (Miralax) 17 gm DAILYPRN PRN ORAL Constipation 11/05/16 20:00 12/05/16 19:59 Promethazine HCl/ Codeine (Phenergan with Codeine) 5 ml Q4H PRN ORAL For Cough 11/05/16 20:00 12/05/16 19:59 Quetiapine Fumarate (SEROquel) 100 mg DAILY ORAL 11/06/16 09:00 12/06/16 08:59 11/08/16 09:21 Temazepam (Restoril) 15 mg HSPRN PRN ORAL Insomnia 11/05/16 21:00 11/12/16 20:59 Topiramate (Topamax) 50 mg EVERY 12 HOURS ORAL 11/05/16 21:00 12/05/16 20:59 11/08/16 09:32 Vancomycin HCl/ Dextrose (Vancomycin/D5W 250ml) 250 ml @ 167 mls/hr Q12HR@0000,1200 IVPB 11/06/16 00:00 11/11/16 00:00 11/08/16 12:32 Warfarin Sodium (Coumadin per pharmacy) 1 ea DAILY PRN MISC Per rx protocol 11/08/16 14:00 12/08/16 13:59 Warfarin Sodium (Coumadin) 5 mg COUMADIN ONCE ORAL 11/08/16 17:00 11/08/16 17:01 Stanley Sofia M.D. Nov 08, 2016 15:07
[2016-11-08] MEDS: Enoxaparin 120 mg inj SUBQ SCH (15:31)
[2016-11-08 16:00] VITALS: BP 119/74
--- NOTE | 2016-11-08 16:11 | Cardiac Electrophysiology PN ---
Assessment/Plan Assessment/Plan 1. Bilateraly PE on CTA 11/08/16 - started on Coumadin and lovenox 2. Sinus Tachycardia due to pneumonia and PE. No evidence of atrial fibrillation. Echocardiogram showed normal left ventricle systolic function. 3. Hypotension. Better off lisinopril and after iv fluid. 4. Pneumonia, on Zithromax, cefepime, and vancomycin. 5. Human immunodeficiency virus, on Bactrim and Tivicay. 6. Depression, on Cymbalta DW RN Subjective Subjective Alert in NAD lying in bed. No chest pain or SOB. Mildly tachycardic. RN at bedside. Objective Last 24 Hour Vital Signs Date Time Temp Pulse Resp B/P Pulse Ox O2 Delivery O2 Flow Rate FiO2 11/08/16 16:00 97.4 111 19 119/74 98 Nasal Cannula 2.0 11/08/16 12:30 97.0 115 20 118/73 97 Nasal Cannula 2.0 11/08/16 08:36 Room Air 11/08/16 08:36 96 Room Air 11/08/16 08:35 104 18 Room Air 21 11/08/16 08:30 98.2 123 20 120/75 96 Nasal Cannula 2.0 11/08/16 04:29 105 11/08/16 04:22 98.6 91 20 116/75 97 Nasal Cannula 2.0 11/08/16 00:00 98.8 108 20 108/63 95 Room Air 2.0 11/07/16 23:56 107 11/07/16 19:58 97.2 106 20 114/78 95 Nasal Cannula 2.0 11/07/16 19:58 114/78 11/07/16 19:35 111 11/07/16 19:34 Nasal Cannula 2.0 28 11/07/16 19:33 106 18 Nasal Cannula 2.0 28 11/07/16 19:33 96 Nasal Cannula 2.0 28 11/07/16 16:58 97.3 114 22 111/68 91 Room Air Intake and Output 11/07/16 11/08/16 19:00 07:00 Intake Total 270 ml Balance 270 ml Intake Oral 270 ml # Voids 3 1 # Bowel Movements 1 Laboratory Tests Test 11/07/16 23:15 11/08/16 06:40 11/08/16 12:15 Random Vancomycin Level 17.7 ug/mL White Blood Count 12.4 K/UL (4.8-10.8) H Red Blood Count 3.60 M/UL (4.70-6.10) L Hemoglobin 10.7 G/DL (14.2-18.0) L Hematocrit 32.7 % (42.0-52.0) L Mean Corpuscular Volume 91 FL (80-99) Mean Corpuscular Hemoglobin 29.7 PG (27.0-31.0) Mean Corpuscular Hemoglobin Concent 32.7 G/DL (32.0-36.0) Red Cell Distribution Width 13.7 % (11.6-14.8) Platelet Count 212 K/UL (150-450) Mean Platelet Volume 7.4 FL (6.5-10.1) Neutrophils (%) (Auto) 80.4 % (45.0-75.0) H Lymphocytes (%) (Auto) 10.8 % (20.0-45.0) L Monocytes (%) (Auto) 7.7 % (1.0-10.0) Eosinophils (%) (Auto) 0.5 % (0.0-3.0) Basophils (%) (Auto) 0.6 % (0.0-2.0) Prothrombin Time 11.3 SEC (9.30-11.50) Prothromb Time International Ratio 1.1 (0.9-1.1) Objective HEAD AND NECK: No JVD. He has lymph nodes around his neck, submandibular and posterior cervical area. LUNGS: Clear. CARDIOVASCULAR: Regular S1 and S2 with no gallop or murmur. ABDOMEN: Soft. EXTREMITIES: No pitting edema. KURT ALEGRIA Nov 08, 2016 16:11
[2016-11-08] MEDS ORDERED: Warfarin Sodium 5mg ORAL ONE (17:00)
[2016-11-08] MEDS ORDERED: NS 275ml ONE (17:54)
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
[2016-11-08 20:00] VITALS: BP 101/66
[2016-11-09 00:30] VITALS: BP 100/56
[2016-11-09 04:39] VITALS: BP 135/81
[2016-11-09 06:29] LABS: BASOPHILS % (AUTO) 0.6 % (0.0-2.0); EOSINOPHILS % (AUTO) 0.5 % (0.0-3.0); LYMPHOCYTES % (AUTO) 12.1 % (20.0-45.0); MEAN CORPUSCULAR HEMOGLOBIN 29.8 PG (27.0-31.0); MEAN CORPUSCULAR HGB CONC 32.7 G/DL (32.0-36.0); MEAN CORPUSCULAR VOLUME 91 FL (80-99); NEUTROPHILS % (AUTO) 79.8 % (45.0-75.0); PLATELET COUNT 227 K/UL (150-450); RED BLOOD COUNT 3.64 M/UL (4.70-6.10); RED CELL DISTRIBUTION WIDTH 14.2 % (11.6-14.8)
[2016-11-09 06:43] LABS: INR 1.1 (0.9-1.1); PROTHROMBIN TIME 11.3 SEC (9.30-11.50)
[2016-11-09 06:59] LABS: ALANINE AMINOTRANSFERASE 12 U/L (3-41); ALBUMIN/GLOBULIN RATIO 0.7 (1.0-2.7); ANION GAP 14 (5-15); ASPARTATE AMINO TRANSFERASE 16 U/L (5-40); CALCIUM 9.2 mg/dL (8.6-10.2); CARBON DIOXIDE 27 mEQ/L (20-30); CHLORIDE 96 mEQ/L (98-107); GLOMERULAR FILTRATION RATE > 60 mL/min (>60); HEMOLYSIS 0; MAGNESIUM 1.9 mg/dL (1.7-2.5); PHOSPHORUS 2.3 mg/dL (2.5-4.8); SODIUM 137 mEQ/L (135-145); TOTAL PROTEIN 7.1 g/dL (6.6-8.7)
[2016-11-09 08:00] VITALS: BP 135/85
[2016-11-09] MEDS: DULoxetine 30mg cap ORAL SCH (08:54)
[2016-11-09] MEDS: Azithromycin 250mg tab ORAL SCH (08:54)
--- NOTE | 2016-11-09 08:55 | General Progress Note ---
Assessment/Plan Assessment/Plan IMPRESSION: 1. Bilateraly PE on CTA 11/08/16 - continue coumadin/lovenox 2. Anemia 2/2 chronic disease - stable 3. Thrombocytopenia. Potentially 2/2 infection, improved 4. Leukocytosis. Likely 2/2 underlying infection, stable 5. Probable pneumonia. Rx abx 6. Mild with fatty infiltration. 7. Community acquired pneumonia. 8. Human-immunodeficiency virus. 9. Dehydration. 10. Sinus tachycardia. RECOMMENDATIONS: 1. Continue lovenox and coumadin 2. Peripheral smear is wnl 3. Antibiotics prn 4. Monitor counts 5. DVT prophylaxis with coumadin 6. Continue HIV meds per ID 7. Hepatitis panel is negative 8. Follow up on ID, Pulmonary and Cardiology recs 9. Discussed with staff. Thank you, Rciki Edmondson MD Subjective Constitutional: Reports: no symptoms HEENT: Reports: no symptoms Cardiovascular: Reports: no symptoms Respiratory: Reports: no symptoms Gastrointestinal/Abdominal: Reports: poor appetite Genitourinary: Reports: no symptoms Neurologic/Psychiatric: Reports: no symptoms Endocrine: Reports: no symptoms Hematologic/Lymphatic: Reports: anemia Allergies: Coded Allergies: No Known Allergies (Unverified , 01/08/13) Subjective stable, no complaints, not bleeding Objective Last 24 Hour Vital Signs Date Time Temp Pulse Resp B/P Pulse Ox O2 Delivery O2 Flow Rate FiO2 11/09/16 07:35 98 Room Air 21 11/09/16 07:35 Room Air 21 11/09/16 07:34 106 18 Room Air 21 11/09/16 04:39 97.7 106 20 135/81 98 Room Air 11/09/16 03:36 105 11/09/16 00:51 109 11/09/16 00:30 98.0 100 20 100/56 100 Room Air 11/08/16 20:00 97.6 106 21 101/66 97 Nasal Cannula 11/08/16 19:46 Room Air 21 11/08/16 19:30 95 Room Air 21 11/08/16 19:30 110 20 Room Air 21 11/08/16 16:00 97.4 111 19 119/74 98 Nasal Cannula 2.0 11/08/16 12:30 97.0 115 20 118/73 97 Nasal Cannula 2.0 Intake and Output 11/08/16 11/09/16 19:00 07:00 Intake Total 600 ml 590 ml Balance 600 ml 590 ml Intake Oral 600 ml 240 ml IV Total 350 ml # Voids 1 1 # Bowel Movements 2 Laboratory Tests 11/08/16 12:15: Prothrombin Time 11.3, Prothromb Time International Ratio 1.1 11/09/16 05:25: Prothrombin Time 11.3, Prothromb Time International Ratio 1.1, White Blood Count 12.0H, Red Blood Count 3.64L, Hemoglobin 10.9L, Hematocrit 33.3L, Mean Corpuscular Volume 91, Mean Corpuscular Hemoglobin 29.8, Mean Corpuscular Hemoglobin Concent 32.7, Red Cell Distribution Width 14.2, Platelet Count 227, Mean Platelet Volume 7.0, Neutrophils (%) (Auto) 79.8H, Lymphocytes (%) (Auto) 12.1L, Monocytes (%) (Auto) 7.0, Eosinophils (%) (Auto) 0.5, Basophils (%) (Auto ) 0.6, Activated Partial Thromboplast Time 31, Sodium Level 137, Potassium Level 4.0, Chloride Level 96L, Carbon Dioxide Level 27, Anion Gap 14, Blood Urea Nitrogen 10, Creatinine 1.0, Estimat Glomerular Filtration Rate > 60, Glucose Level 111H, Calcium Level 9.2, Phosphorus Level 2.3L, Magnesium Level 1.9, Total Bilirubin 0.6, Aspartate Amino Transf (AST/SGOT) 16, Alanine Aminotransferase (ALT/SGPT) 12, Alkaline Phosphatase 82, Total Protein 7.1, Albumin 3.0L, Globulin 4.1, Albumin/Globulin Ratio 0.7L Height (Feet): 5 Height (Inches): 6.00 Weight (Pounds): 169 General Appearance: no apparent distress EENT: pharynx normal Neck: supple Cardiovascular: no gallop/murmur Respiratory/Chest: no accessory muscle use Abdomen: non tender Extremities: non-tender Edema: 1+ Leg (L), 1+ Leg (R) Edema: mild edema Neurologic: alert Skin: warm/dry Ricki Edmondson Nov 09, 2016 08:55
[2016-11-09] MEDS: Methocarbamol 750mg tab ORAL SCH ×3 (08:56→18:00)
[2016-11-09] MEDS: Topiramate 25mg tab ORAL SCH ×2 (08:57→21:51)
[2016-11-09] MEDS: oxyCONTIN 10mg tab ORAL SCH (08:58)
[2016-11-09 12:00] VITALS: BP 107/72
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
--- NOTE | 2016-11-09 15:41 | Pulmonology Progress Note ---
Assessment/Plan Problems: (1) Pulmonary embolism (2) HIV (human immunodeficiency virus infection) (3) HTN (hypertension) (4) Depression Assessment/Plan slightly better continue anticoagulation doppler of legs pending pt/ot on coumadin Subjective ROS Limited/Unobtainable: No Constitutional: Reports: no symptoms HEENT: Repors: no symptoms Respiratory: Reports: no symptoms Allergies: Coded Allergies: No Known Allergies (Unverified , 01/08/13) Objective Last 24 Hour Vital Signs Date Time Temp Pulse Resp B/P Pulse Ox O2 Delivery O2 Flow Rate FiO2 11/09/16 12:00 98.1 114 30 107/72 97 Nasal Cannula 3.0 11/09/16 08:00 97.9 113 20 135/85 96 Nasal Cannula 3.0 11/09/16 07:35 98 Room Air 21 11/09/16 07:35 Room Air 21 11/09/16 07:34 106 18 Room Air 21 11/09/16 04:39 97.7 106 20 135/81 98 Room Air 11/09/16 03:36 105 11/09/16 00:51 109 11/09/16 00:30 98.0 100 20 100/56 100 Room Air 11/08/16 20:00 97.6 106 21 101/66 97 Nasal Cannula 11/08/16 19:46 Room Air 21 11/08/16 19:30 95 Room Air 21 11/08/16 19:30 110 20 Room Air 21 11/08/16 16:00 97.4 111 19 119/74 98 Nasal Cannula 2.0 Intake and Output 11/08/16 11/09/16 18:59 06:59 Intake Total 600 ml 590 ml Balance 600 ml 590 ml Intake Oral 600 ml 240 ml IV Total 350 ml # Voids 1 1 # Bowel Movements 2 General Appearance: WD/WN HEENT: normocephalic, atraumatic Respiratory/Chest: chest wall non-tender, lungs clear Cardiovascular: normal peripheral pulses, normal rate Abdomen: normal bowel sounds, soft, non tender Extremities: no cyanosis Skin: no rash Neurologic/Psychiatric: pain management physician II-XII grossly normal Lymphatic: no neck adenopathy Laboratory Tests 11/09/16 05:25: White Blood Count 12.0H, Red Blood Count 3.64L, Hemoglobin 10.9L, Hematocrit 33.3L, Mean Corpuscular Volume 91, Mean Corpuscular Hemoglobin 29.8, Mean Corpuscular Hemoglobin Concent 32.7, Red Cell Distribution Width 14.2, Platelet Count 227, Mean Platelet Volume 7.0, Neutrophils (%) (Auto) 79.8H, Lymphocytes ( %) (Auto) 12.1L, Monocytes (%) (Auto) 7.0, Eosinophils (%) (Auto) 0.5, Basophils (%) (Auto) 0.6, Prothrombin Time 11.3, Prothromb Time International Ratio 1.1, Activated Partial Thromboplast Time 31, Sodium Level 137, Potassium Level 4.0, Chloride Level 96L, Carbon Dioxide Level 27, Anion Gap 14, Blood Urea Nitrogen 10, Creatinine 1.0, Estimat Glomerular Filtration Rate > 60, Glucose Level 111H, Calcium Level 9.2, Phosphorus Level 2.3L, Magnesium Level 1.9, Total Bilirubin 0.6, Aspartate Amino Transf (AST/SGOT) 16, Alanine Aminotransferase (ALT/SGPT) 12, Alkaline Phosphatase 82, Total Protein 7.1, Albumin 3.0L, Globulin 4.1, Albumin/Globulin Ratio 0.7L Current Medications Medications (Trade) Dose Ordered Sig/Christie Route PRN Reason Start Time Stop Time Status Last Admin Dose Admin Acetaminophen (Tylenol) 650 mg Q4H PRN ORAL fever 11/05/16 20:00 12/05/16 19:59 Al Hydroxide/Mg Hydroxide (Mylanta II) 30 ml Q6H PRN ORAL dyspepsia 11/05/16 20:00 12/05/16 19:59 Albuterol/ Ipratropium (DuoNeb 0.5-3(2.5)mg/3ml) 3 ml Q4H PRN HHN Shortness of Breath 11/05/16 20:00 11/10/16 19:59 Azithromycin (Zithromax) 250 mg DAILY ORAL 11/06/16 09:00 11/13/16 08:59 11/09/16 08:54 Cefepime HCl 1 gm/ Dextrose 50 ml @ 100 mls/hr EVERY 12 HOURS IVPB 11/05/16 21:00 11/12/16 20:59 11/09/16 08:53 Clonidine HCl (Catapres) 0.1 mg Q4H PRN ORAL For SBP > 160mmHg 11/05/16 20:00 12/05/16 19:59 Duloxetine HCl (Cymbalta) 60 mg DAILY ORAL 11/06/16 09:00 12/06/16 08:59 11/09/16 08:54 Enoxaparin Sodium (Lovenox) 110 mg Q24H SUBQ 11/08/16 13:00 12/08/16 12:59 11/08/16 15:31 Escitalopram Oxalate (Lexapro) 10 mg DAILY ORAL 11/06/16 09:00 12/06/16 08:59 11/09/16 08:55 Methocarbamol (Robaxin) 750 mg TID ORAL 11/06/16 09:00 12/06/16 08:59 11/09/16 08:56 Nitroglycerin (Ntg) 0.4 mg Q5M X 3 DOSES PRN SL Prn Chest Pain 11/05/16 19:45 12/05/16 19:44 11/07/16 19:58 Ondansetron HCl (Zofran) 4 mg Q6H PRN IVP Nausea & Vomiting 11/05/16 20:00 12/05/16 19:59 Oxycodone HCl (OxyCONTIN) 30 mg DAILY ORAL 11/06/16 09:00 11/13/16 08:59 11/09/16 08:58 Polyethylene Glycol (Miralax) 17 gm DAILYPRN PRN ORAL Constipation 11/05/16 20:00 12/05/16 19:59 Promethazine HCl/ Codeine (Phenergan with Codeine) 5 ml Q4H PRN ORAL For Cough 11/05/16 20:00 12/05/16 19:59 Quetiapine Fumarate (SEROquel) 100 mg DAILY ORAL 11/06/16 09:00 12/06/16 08:59 11/09/16 08:54 Temazepam (Restoril) 15 mg HSPRN PRN ORAL Insomnia 11/05/16 21:00 11/12/16 20:59 Topiramate (Topamax) 50 mg EVERY 12 HOURS ORAL 11/05/16 21:00 12/05/16 20:59 11/09/16 08:57 Vancomycin HCl/ Dextrose (Vancomycin/D5W 250ml) 250 ml @ 167 mls/hr Q12HR@0000,1200 IVPB 11/06/16 00:00 11/11/16 00:00 11/09/16 12:50 Warfarin Sodium (Coumadin per pharmacy) 1 ea DAILY PRN MISC Per rx protocol 11/08/16 14:00 12/08/16 13:59 Warfarin Sodium (Coumadin) 5 mg COUMADIN ONCE ORAL 11/09/16 17:00 11/09/16 17:01 LESTER PISANO Nov 09, 2016 15:41
[2016-11-09] MEDS: Enoxaparin 120 mg inj SUBQ SCH (15:58)
[2016-11-09 16:00] VITALS: BP 117/73
--- NOTE | 2016-11-09 16:34 | Cardiac Electrophysiology PN ---
Assessment/Plan Assessment/Plan 1. Bilateraly PE on CTA 11/08/16 - started on Coumadin and Lovenox 2. Sinus Tachycardia due to pneumonia and PE. No atrial fibrillation. Echocardiogram showed normal left ventricle systolic function. 3. Hypotension. Better off lisinopril 4. Pneumonia, on Zithromax, cefepime, and vancomycin. 5. Human immunodeficiency virus Tivicay. 6. Depression, on Cymbalta DW RN Subjective Subjective Alert in NAD lying in bed in Sinus tachy up to 130s. No chest pain or SOB. RN at bedside. Objective Last 24 Hour Vital Signs Date Time Temp Pulse Resp B/P Pulse Ox O2 Delivery O2 Flow Rate FiO2 11/09/16 12:45 114 11/09/16 12:00 98.1 114 30 107/72 97 Nasal Cannula 3.0 11/09/16 09:46 119 11/09/16 08:00 97.9 113 20 135/85 96 Nasal Cannula 3.0 11/09/16 07:35 98 Room Air 21 11/09/16 07:35 Room Air 21 11/09/16 07:34 106 18 Room Air 21 11/09/16 04:39 97.7 106 20 135/81 98 Room Air 11/09/16 03:36 105 11/09/16 00:51 109 11/09/16 00:30 98.0 100 20 100/56 100 Room Air 11/08/16 20:00 97.6 106 21 101/66 97 Nasal Cannula 11/08/16 19:46 Room Air 21 11/08/16 19:30 95 Room Air 21 11/08/16 19:30 110 20 Room Air 21 Intake and Output 11/08/16 11/09/16 18:59 06:59 Intake Total 600 ml 590 ml Balance 600 ml 590 ml Intake Oral 600 ml 240 ml IV Total 350 ml # Voids 1 1 # Bowel Movements 2 Laboratory Tests Test 11/09/16 05:25 White Blood Count 12.0 K/UL (4.8-10.8) H Red Blood Count 3.64 M/UL (4.70-6.10) L Hemoglobin 10.9 G/DL (14.2-18.0) L Hematocrit 33.3 % (42.0-52.0) L Mean Corpuscular Volume 91 FL (80-99) Mean Corpuscular Hemoglobin 29.8 PG (27.0-31.0) Mean Corpuscular Hemoglobin Concent 32.7 G/DL (32.0-36.0) Red Cell Distribution Width 14.2 % (11.6-14.8) Platelet Count 227 K/UL (150-450) Mean Platelet Volume 7.0 FL (6.5-10.1) Neutrophils (%) (Auto) 79.8 % (45.0-75.0) H Lymphocytes (%) (Auto) 12.1 % (20.0-45.0) L Monocytes (%) (Auto) 7.0 % (1.0-10.0) Eosinophils (%) (Auto) 0.5 % (0.0-3.0) Basophils (%) (Auto) 0.6 % (0.0-2.0) Prothrombin Time 11.3 SEC (9.30-11.50) Prothromb Time International Ratio 1.1 (0.9-1.1) Activated Partial Thromboplast Time 31 SEC (23-33) Sodium Level 137 mEQ/L (135-145) Potassium Level 4.0 mEQ/L (3.4-4.9) Chloride Level 96 mEQ/L (98-107) L Carbon Dioxide Level 27 mEQ/L (20-30) Anion Gap 14 (5-15) Blood Urea Nitrogen 10 mg/dL (7-23) Creatinine 1.0 mg/dL (0.7-1.2) Estimat Glomerular Filtration Rate > 60 mL/min (>60) Glucose Level 111 mg/dL (74-106) H Calcium Level 9.2 mg/dL (8.6-10.2) Phosphorus Level 2.3 mg/dL (2.5-4.8) L Magnesium Level 1.9 mg/dL (1.7-2.5) Total Bilirubin 0.6 mg/dL (0.0-1.2) Aspartate Amino Transf (AST/SGOT) 16 U/L (5-40) Alanine Aminotransferase (ALT/SGPT) 12 U/L (3-41) Alkaline Phosphatase 82 U/L (40-129) Total Protein 7.1 g/dL (6.6-8.7) Albumin 3.0 g/dL (3.5-5.2) L Globulin 4.1 g/dL Albumin/Globulin Ratio 0.7 (1.0-2.7) L Objective HEAD AND NECK: No JVD. He has lymph nodes around his neck, submandibular and posterior cervical area. LUNGS: Clear. CARDIOVASCULAR: Tachycardic S1 and S2 with no gallop or murmur. ABDOMEN: Soft. EXTREMITIES: No pitting edema. KURT ALEGRIA Nov 09, 2016 16:34
[2016-11-09] MEDS ORDERED: Warfarin Sodium 5mg ORAL ONE (17:00)
--- NOTE | 2016-11-09 17:26 | Infectious Diseases Prog Note ---
Assessment/Plan Problems: (1) CAP (community acquired pneumonia) Assessment & Plan: continue cefepime ,vancomycin and zithromax to cover atypical organisms, await sputum culture.influenza screening is negative (2) HIV (human immunodeficiency virus infection) Assessment & Plan: with high CD4 counts , resume previous HIV meds which he is on, descovy and tivicay , await viral load . CD4 counts is 657 (3) HTN (hypertension) Assessment & Plan: stable continue po meds. (4) Depression Assessment & Plan: stable , continue cymbalta (5) Leukocytosis Assessment & Plan: improving , no evidence of lung abscess on CT chest with contrast (6) Pulmonary embolism Assessment & Plan: started on anticoagulation as per HEM/ONC Subjective Constitutional: Reports: no symptoms HEENT: Reports: no symptoms Respiratory: Reports: dry cough Breasts: Reports: no symptoms Cardiovascular: Reports: no symptoms Gastrointestinal/Abdominal: Reports: no symptoms Genitourinary: Reports: no symptoms Neurologic: Reports: no symptoms Psychiatric: Reports: no symptoms Skin: Reports: no symptoms Allergies: Coded Allergies: No Known Allergies (Unverified , 01/08/13) Subjective had left flank pain with cough , no chest pain or SOB Objective Vital Signs Last 24 Hour Vital Signs Date Time Temp Pulse Resp B/P Pulse Ox O2 Delivery O2 Flow Rate FiO2 11/09/16 16:00 97.9 130 21 117/73 95 Room Air 11/09/16 12:45 114 11/09/16 12:00 98.1 114 30 107/72 97 Nasal Cannula 3.0 11/09/16 09:46 119 11/09/16 08:00 97.9 113 20 135/85 96 Nasal Cannula 3.0 11/09/16 07:35 98 Room Air 21 11/09/16 07:35 Room Air 21 11/09/16 07:34 106 18 Room Air 21 11/09/16 04:39 97.7 106 20 135/81 98 Room Air 11/09/16 03:36 105 11/09/16 00:51 109 11/09/16 00:30 98.0 100 20 100/56 100 Room Air 11/08/16 20:00 97.6 106 21 101/66 97 Nasal Cannula 11/08/16 19:46 Room Air 11/08/16 19:30 95 Room Air 21 11/08/16 19:30 110 20 Room Air 21 Height (Feet): 5 Height (Inches): 6.00 Weight (Pounds): 169 General Appearance: WD/WN, no acute distress HEENT: normocephalic, atraumatic, anicteric, mucous membranes moist Respiratory/Chest: chest wall non-tender, lungs clear, normal breath sounds, no respiratory distress, no accessory muscle use, decreased breath sounds Cardiovascular: normal peripheral pulses, normal rate, regular rhythm, no gallop/murmur Abdomen: normal bowel sounds, soft, non tender, no organomegaly, non distended , no mass, no scars Extremities: no cyanosis, no clubbing Skin: no rash, no lesions, no ulcers Laboratory Tests Test 11/09/16 05:25 White Blood Count 12.0 K/UL (4.8-10.8) H Red Blood Count 3.64 M/UL (4.70-6.10) L Hemoglobin 10.9 G/DL (14.2-18.0) L Hematocrit 33.3 % (42.0-52.0) L Mean Corpuscular Volume 91 FL (80-99) Mean Corpuscular Hemoglobin 29.8 PG (27.0-31.0) Mean Corpuscular Hemoglobin Concent 32.7 G/DL (32.0-36.0) Red Cell Distribution Width 14.2 % (11.6-14.8) Platelet Count 227 K/UL (150-450) Mean Platelet Volume 7.0 FL (6.5-10.1) Neutrophils (%) (Auto) 79.8 % (45.0-75.0) H Lymphocytes (%) (Auto) 12.1 % (20.0-45.0) L Monocytes (%) (Auto) 7.0 % (1.0-10.0) Eosinophils (%) (Auto) 0.5 % (0.0-3.0) Basophils (%) (Auto) 0.6 % (0.0-2.0) Prothrombin Time 11.3 SEC (9.30-11.50) Prothromb Time International Ratio 1.1 (0.9-1.1) Activated Partial Thromboplast Time 31 SEC (23-33) Sodium Level 137 mEQ/L (135-145) Potassium Level 4.0 mEQ/L (3.4-4.9) Chloride Level 96 mEQ/L (98-107) L Carbon Dioxide Level 27 mEQ/L (20-30) Anion Gap 14 (5-15) Blood Urea Nitrogen 10 mg/dL (7-23) Creatinine 1.0 mg/dL (0.7-1.2) Estimat Glomerular Filtration Rate > 60 mL/min (>60) Glucose Level 111 mg/dL (74-106) H Calcium Level 9.2 mg/dL (8.6-10.2) Phosphorus Level 2.3 mg/dL (2.5-4.8) L Magnesium Level 1.9 mg/dL (1.7-2.5) Total Bilirubin 0.6 mg/dL (0.0-1.2) Aspartate Amino Transf (AST/SGOT) 16 U/L (5-40) Alanine Aminotransferase (ALT/SGPT) 12 U/L (3-41) Alkaline Phosphatase 82 U/L (40-129) Total Protein 7.1 g/dL (6.6-8.7) Albumin 3.0 g/dL (3.5-5.2) L Globulin 4.1 g/dL Albumin/Globulin Ratio 0.7 (1.0-2.7) L Current Medications Medications (Trade) Dose Ordered Sig/Christie Route PRN Reason Start Time Stop Time Status Last Admin Dose Admin Acetaminophen (Tylenol) 650 mg Q4H PRN ORAL fever 11/05/16 20:00 12/05/16 19:59 Al Hydroxide/Mg Hydroxide (Mylanta II) 30 ml Q6H PRN ORAL dyspepsia 11/05/16 20:00 12/05/16 19:59 Albuterol/ Ipratropium (DuoNeb 0.5-3(2.5)mg/3ml) 3 ml Q4H PRN HHN Shortness of Breath 11/05/16 20:00 11/10/16 19:59 Azithromycin (Zithromax) 250 mg DAILY ORAL 11/06/16 09:00 11/13/16 08:59 11/09/16 08:54 Cefepime HCl 1 gm/ Dextrose 50 ml @ 100 mls/hr EVERY 12 HOURS IVPB 11/05/16 21:00 11/12/16 20:59 11/09/16 08:53 Clonidine HCl (Catapres) 0.1 mg Q4H PRN ORAL For SBP > 160mmHg 11/05/16 20:00 12/05/16 19:59 Duloxetine HCl (Cymbalta) 60 mg DAILY ORAL 11/06/16 09:00 12/06/16 08:59 11/09/16 08:54 Enoxaparin Sodium (Lovenox) 110 mg Q24H SUBQ 11/08/16 13:00 12/08/16 12:59 11/09/16 15:58 Escitalopram Oxalate (Lexapro) 10 mg DAILY ORAL 11/06/16 09:00 12/06/16 08:59 11/09/16 08:55 Methocarbamol (Robaxin) 750 mg TID ORAL 11/06/16 09:00 12/06/16 08:59 11/09/16 15:56 Nitroglycerin (Ntg) 0.4 mg Q5M X 3 DOSES PRN SL Prn Chest Pain 11/05/16 19:45 12/05/16 19:44 11/07/16 19:58 Ondansetron HCl (Zofran) 4 mg Q6H PRN IVP Nausea & Vomiting 11/05/16 20:00 12/05/16 19:59 Oxycodone HCl (OxyCONTIN) 30 mg DAILY ORAL 11/06/16 09:00 11/13/16 08:59 11/09/16 08:58 Polyethylene Glycol (Miralax) 17 gm DAILYPRN PRN ORAL Constipation 11/05/16 20:00 12/05/16 19:59 Promethazine HCl/ Codeine (Phenergan with Codeine) 5 ml Q4H PRN ORAL For Cough 11/05/16 20:00 12/05/16 19:59 Quetiapine Fumarate (SEROquel) 100 mg DAILY ORAL 11/06/16 09:00 12/06/16 08:59 11/09/16 08:54 Temazepam (Restoril) 15 mg HSPRN PRN ORAL Insomnia 11/05/16 21:00 11/12/16 20:59 Topiramate (Topamax) 50 mg EVERY 12 HOURS ORAL 11/05/16 21:00 12/05/16 20:59 11/09/16 08:57 Vancomycin HCl/ Dextrose (Vancomycin/D5W 250ml) 250 ml @ 167 mls/hr Q12HR@0000,1200 IVPB 11/06/16 00:00 11/11/16 00:00 11/09/16 12:50 Warfarin Sodium (Coumadin per pharmacy) 1 ea DAILY PRN MISC Per rx protocol 11/08/16 14:00 12/08/16 13:59 Stanley Sofia M.D. Nov 09, 2016 17:26
[2016-11-09 20:00] VITALS: BP 125/80
[2016-11-10] VITALS: BP 110/77
[2016-11-10 04:25] VITALS: BP 108/63
--- NOTE | 2016-11-10 05:12 | General Progress Note ---
Assessment/Plan Assessment/Plan IMPRESSION: 1. Bilateraly PE on CTA 11/08/16 - continue coumadin/lovenox and goal INR 2-3, does not require a hypercoag workup 2. Anemia 2/2 chronic disease - stable 3. Thrombocytopenia. Potentially 2/2 infection, improved 4. Leukocytosis. Likely 2/2 underlying infection, improved 5. Probable pneumonia. Rx abx 6. Mild with fatty infiltration. 7. Community acquired pneumonia. 8. Human-immunodeficiency virus. 9. Dehydration. 10. Sinus tachycardia. RECOMMENDATIONS: 1. Continue lovenox 2. Peripheral smear is wnl 3. Antibiotics prn 4. Monitor counts 5. DVT prophylaxis with coumadin 6. Continue HIV meds per ID 7. Goal INR 2-3 8. Follow up on ID, Pulmonary and Cards recs 9. Discussed with staff. Thank you, Ricki Edmondson MD Subjective Constitutional: Reports: no symptoms HEENT: Reports: mouth pain Cardiovascular: Reports: no symptoms Respiratory: Reports: no symptoms Gastrointestinal/Abdominal: Reports: poor appetite Genitourinary: Reports: no symptoms Neurologic/Psychiatric: Reports: no symptoms Endocrine: Reports: no symptoms Hematologic/Lymphatic: Reports: anemia Allergies: Coded Allergies: No Known Allergies (Unverified , 01/08/13) Subjective stable, on coumadin, not bleeding Objective Last 24 Hour Vital Signs Date Time Temp Pulse Resp B/P Pulse Ox O2 Delivery O2 Flow Rate FiO2 11/10/16 04:25 97.3 108 20 108/63 96 Room Air 11/10/16 00:08 109 11/10/16 00:00 98.0 110 20 110/77 98 Room Air 11/09/16 20:00 97.7 118 20 125/80 96 Room Air 11/09/16 19:31 97 Room Air 21 11/09/16 19:31 Room Air 21 11/09/16 19:31 112 20 Room Air 21 11/09/16 19:04 137 11/09/16 16:00 97.9 130 21 117/73 95 Room Air 11/09/16 16:00 108 11/09/16 12:45 114 11/09/16 12:00 98.1 114 30 107/72 97 Nasal Cannula 3.0 11/09/16 09:46 119 11/09/16 08:00 97.9 113 20 135/85 96 Nasal Cannula 3.0 11/09/16 07:35 98 Room Air 21 11/09/16 07:35 Room Air 21 11/09/16 07:34 106 18 Room Air 21 Intake and Output 11/09/16 11/10/16 19:00 07:00 Intake Total 600 ml Output Total 200 ml Balance 400 ml Intake Oral 600 ml Output Urine Total 200 ml Laboratory Tests 11/09/16 05:25: White Blood Count 12.0H, Red Blood Count 3.64L, Hemoglobin 10.9L, Hematocrit 33.3L, Mean Corpuscular Volume 91, Mean Corpuscular Hemoglobin 29.8, Mean Corpuscular Hemoglobin Concent 32.7, Red Cell Distribution Width 14.2, Platelet Count 227, Mean Platelet Volume 7.0, Neutrophils (%) (Auto) 79.8H, Lymphocytes ( %) (Auto) 12.1L, Monocytes (%) (Auto) 7.0, Eosinophils (%) (Auto) 0.5, Basophils (%) (Auto) 0.6, Prothrombin Time 11.3, Prothromb Time International Ratio 1.1, Activated Partial Thromboplast Time 31, Sodium Level 137, Potassium Level 4.0, Chloride Level 96L, Carbon Dioxide Level 27, Anion Gap 14, Blood Urea Nitrogen 10, Creatinine 1.0, Estimat Glomerular Filtration Rate > 60, Glucose Level 111H, Calcium Level 9.2, Phosphorus Level 2.3L, Magnesium Level 1.9, Total Bilirubin 0.6, Aspartate Amino Transf (AST/SGOT) 16, Alanine Aminotransferase (ALT/SGPT) 12, Alkaline Phosphatase 82, Total Protein 7.1, Albumin 3.0L, Globulin 4.1, Albumin/Globulin Ratio 0.7L Height (Feet): 5 Height (Inches): 6.00 Weight (Pounds): 169 General Appearance: no apparent distress EENT: PERRL/EOMI Neck: normal alignment Cardiovascular: normal rate Respiratory/Chest: no respiratory distress Abdomen: non tender Extremities: non-tender Edema: 1+ Leg (L), 1+ Leg (R) Edema: mild edema Neurologic: alert Skin: warm/dry Ricki Edmondson Nov 10, 2016 05:12
[2016-11-10 07:56] VITALS: BP 124/76
[2016-11-10 08:55] LABS: INR 1.3 (0.9-1.1); PROTHROMBIN TIME 13.4 SEC (9.30-11.50)
[2016-11-10] MEDS: Azithromycin 250mg tab ORAL SCH (09:09)
[2016-11-10] MEDS: DULoxetine 30mg cap ORAL SCH (09:09)
[2016-11-10] MEDS: Methocarbamol 750mg tab ORAL SCH ×3 (09:10→17:57)
[2016-11-10] MEDS: oxyCONTIN 10mg tab ORAL SCH (09:11)
[2016-11-10] MEDS: Topiramate 25mg tab ORAL SCH ×2 (09:15→21:39)
[2016-11-10 10:32] LABS: HIV RNA PCR QUANT <20 copies/mL (.)
[2016-11-10 11:41] VITALS: BP 117/72
[2016-11-10] MEDS: Enoxaparin 120 mg inj SUBQ SCH (13:27)
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
--- NOTE | 2016-11-10 14:47 | Cardiac Electrophysiology PN ---
Assessment/Plan Assessment/Plan 1. Bilateraly PE on CTA 11/08/16, on Coumadin and Lovenox 2. Sinus Tachycardia due to pneumonia and PE. No atrial fibrillation. Echocardiogram showed normal left ventricle systolic function. 3. Hypotension. Resolved 4. Pneumonia, on Zithromax, cefepime, and vancomycin. 5. Human immunodeficiency virus Tivicay. 6. Depression, on Cymbalta DW RN and Dr Sofia Subjective Subjective Alert in NAD lying in bed. No chest pain or SOB. RN and Dr Sofia at bedside. Objective Last 24 Hour Vital Signs Date Time Temp Pulse Resp B/P Pulse Ox O2 Delivery O2 Flow Rate FiO2 11/10/16 12:00 118 11/10/16 11:41 97.1 116 20 117/72 96 Room Air 11/10/16 08:00 116 11/10/16 07:56 97.5 107 20 124/76 98 Nasal Cannula 2.0 11/10/16 04:25 97.3 108 20 108/63 96 Room Air 11/10/16 04:18 104 11/10/16 00:08 109 11/10/16 00:00 98.0 110 20 110/77 98 Room Air 11/09/16 20:00 97.7 118 20 125/80 96 Room Air 11/09/16 19:31 97 Room Air 21 11/09/16 19:31 Room Air 21 11/09/16 19:31 112 20 Room Air 21 11/09/16 19:04 137 11/09/16 16:00 97.9 130 21 117/73 95 Room Air 11/09/16 16:00 108 Intake and Output 11/09/16 11/10/16 19:00 07:00 Intake Total 600 ml Output Total 200 ml Balance 400 ml Intake Oral 600 ml Output Urine Total 200 ml Laboratory Tests Test 11/10/16 07:35 Prothrombin Time 13.4 SEC (9.30-11.50) H Prothromb Time International Ratio 1.3 (0.9-1.1) H Objective HEAD AND NECK: No JVD. LUNGS: Clear. CARDIOVASCULAR: Tachycardic S1 and S2 with no gallop or murmur. ABDOMEN: Soft. EXTREMITIES: No pitting edema. KURT ALEGRIA Nov 10, 2016 14:47
--- NOTE | 2016-11-10 15:59 | Pulmonology Progress Note ---
Assessment/Plan Problems: (1) Pulmonary embolism (2) HIV (human immunodeficiency virus infection) (3) HTN (hypertension) (4) Depression Assessment/Plan slightly better still tachycardic echo reviewed, normal LV funtion continue anticoagulation doppler of legs negative pt/ot on coumadin Subjective ROS Limited/Unobtainable: No Interval Events: no short of breath, still episodes of tachycardia Allergies: Coded Allergies: No Known Allergies (Unverified , 01/08/13) Objective Last 24 Hour Vital Signs Date Time Temp Pulse Resp B/P Pulse Ox O2 Delivery O2 Flow Rate FiO2 11/10/16 12:00 118 11/10/16 11:41 97.1 116 20 117/72 96 Room Air 11/10/16 08:00 116 11/10/16 07:56 97.5 107 20 124/76 98 Nasal Cannula 2.0 11/10/16 04:25 97.3 108 20 108/63 96 Room Air 11/10/16 04:18 104 11/10/16 00:08 109 11/10/16 00:00 98.0 110 20 110/77 98 Room Air 11/09/16 20:00 97.7 118 20 125/80 96 Room Air 11/09/16 19:31 97 Room Air 21 11/09/16 19:31 Room Air 21 11/09/16 19:31 112 20 Room Air 21 11/09/16 19:04 137 11/09/16 16:00 97.9 130 21 117/73 95 Room Air 11/09/16 16:00 108 Intake and Output 11/09/16 11/10/16 19:00 07:00 Intake Total 600 ml Output Total 200 ml Balance 400 ml Intake Oral 600 ml Output Urine Total 200 ml General Appearance: WD/WN HEENT: normocephalic, atraumatic Respiratory/Chest: chest wall non-tender, lungs clear Cardiovascular: normal peripheral pulses, normal rate Abdomen: normal bowel sounds, soft, non tender Genitourinary: normal external genitalia Skin: no rash, no ulcers Lymphatic: no neck adenopathy Laboratory Tests 11/10/16 07:35: Prothrombin Time 13.4H, Prothromb Time International Ratio 1.3H Current Medications Medications (Trade) Dose Ordered Sig/Hcristie Route PRN Reason Start Time Stop Time Status Last Admin Dose Admin Acetaminophen (Tylenol) 650 mg Q4H PRN ORAL fever 11/05/16 20:00 12/05/16 19:59 Al Hydroxide/Mg Hydroxide (Mylanta II) 30 ml Q6H PRN ORAL dyspepsia 11/05/16 20:00 12/05/16 19:59 Albuterol/ Ipratropium (DuoNeb 0.5-3(2.5)mg/3ml) 3 ml Q4H PRN HHN Shortness of Breath 11/05/16 20:00 11/10/16 19:59 Azithromycin (Zithromax) 250 mg DAILY ORAL 11/06/16 09:00 11/13/16 08:59 11/10/16 09:09 Cefepime HCl 1 gm/ Dextrose 50 ml @ 100 mls/hr EVERY 12 HOURS IVPB 11/05/16 21:00 11/12/16 20:59 11/10/16 09:11 Clonidine HCl (Catapres) 0.1 mg Q4H PRN ORAL For SBP > 160mmHg 11/05/16 20:00 12/05/16 19:59 Duloxetine HCl (Cymbalta) 60 mg DAILY ORAL 11/06/16 09:00 12/06/16 08:59 11/10/16 09:09 Enoxaparin Sodium (Lovenox) 110 mg Q24H SUBQ 11/08/16 13:00 12/08/16 12:59 11/10/16 13:27 Escitalopram Oxalate (Lexapro) 10 mg DAILY ORAL 11/06/16 09:00 12/06/16 08:59 11/10/16 09:09 Methocarbamol (Robaxin) 750 mg TID ORAL 11/06/16 09:00 12/06/16 08:59 11/10/16 13:26 Nitroglycerin (Ntg) 0.4 mg Q5M X 3 DOSES PRN SL Prn Chest Pain 11/05/16 19:45 12/05/16 19:44 11/07/16 19:58 Ondansetron HCl (Zofran) 4 mg Q6H PRN IVP Nausea & Vomiting 11/05/16 20:00 12/05/16 19:59 Oxycodone HCl (OxyCONTIN) 30 mg DAILY ORAL 11/06/16 09:00 11/13/16 08:59 11/10/16 09:11 Polyethylene Glycol (Miralax) 17 gm DAILYPRN PRN ORAL Constipation 11/05/16 20:00 12/05/16 19:59 Promethazine HCl/ Codeine (Phenergan with Codeine) 5 ml Q4H PRN ORAL For Cough 11/05/16 20:00 12/05/16 19:59 Quetiapine Fumarate (SEROquel) 100 mg DAILY ORAL 11/06/16 09:00 12/06/16 08:59 11/10/16 09:10 Temazepam (Restoril) 15 mg HSPRN PRN ORAL Insomnia 11/05/16 21:00 11/12/16 20:59 Topiramate (Topamax) 50 mg EVERY 12 HOURS ORAL 11/05/16 21:00 12/05/16 20:59 11/10/16 09:15 Vancomycin HCl/ Dextrose (Vancomycin/D5W 250ml) 250 ml @ 167 mls/hr Q12HR@0000,1200 IVPB 11/06/16 00:00 11/15/16 00:00 11/10/16 11:29 Warfarin Sodium (Coumadin per pharmacy) 1 ea DAILY PRN MISC Per rx protocol 11/08/16 14:00 12/08/16 13:59 Warfarin Sodium (Coumadin) 5 mg COUMADIN ONCE ORAL 11/10/16 17:00 11/10/16 17:01 LESTER PISANO Nov 10, 2016 15:59
[2016-11-10 16:00] VITALS: BP 102/70
--- NOTE | 2016-11-10 16:28 | Infectious Diseases Prog Note ---
Assessment/Plan Problems: (1) CAP (community acquired pneumonia) Assessment & Plan: continue cefepime ,vancomycin for 10 days total, will D/C zithromax , sputum culture showed no growth .influenza screening is negative (2) HIV (human immunodeficiency virus infection) Assessment & Plan: with high CD4 counts and undetectable viral load, continue previous HIV meds, follow up with HIV provider as an outpatient (3) HTN (hypertension) Assessment & Plan: stable continue po meds. (4) Depression Assessment & Plan: stable , continue cymbalta (5) Leukocytosis Assessment & Plan: improving , no evidence of lung abscess on CT chest with contrast (6) Pulmonary embolism Assessment & Plan: started on anticoagulation as per HEM/ONC Subjective Constitutional: Reports: no symptoms HEENT: Reports: no symptoms Respiratory: Reports: no symptoms Cardiovascular: Reports: no symptoms Gastrointestinal/Abdominal: Reports: no symptoms Genitourinary: Reports: no symptoms Neurologic: Reports: weakness Psychiatric: Reports: no symptoms Skin: Reports: no symptoms Endocrine: Reports: no symptoms Allergies: Coded Allergies: No Known Allergies (Unverified , 01/08/13) Subjective he was a liitle weak today and sleepy, denied any flank pain or cough , no chest pain or SOB Objective Vital Signs Last 24 Hour Vital Signs Date Time Temp Pulse Resp B/P Pulse Ox O2 Delivery O2 Flow Rate FiO2 11/10/16 12:00 118 11/10/16 11:41 97.1 116 20 117/72 96 Room Air 11/10/16 08:00 116 11/10/16 07:56 97.5 107 20 124/76 98 Nasal Cannula 2.0 11/10/16 07:15 95 Room Air 21 11/10/16 07:15 Room Air 11/10/16 07:15 114 18 Room Air 11/10/16 04:25 97.3 108 20 108/63 96 Room Air 11/10/16 04:18 104 11/10/16 00:08 109 11/10/16 00:00 98.0 110 20 110/77 98 Room Air 11/09/16 20:00 97.7 118 20 125/80 96 Room Air 11/09/16 19:31 97 Room Air 11/09/16 19:31 Room Air 11/09/16 19:31 112 20 Room Air 11/09/16 19:04 137 Height (Feet): 5 Height (Inches): 6.00 Weight (Pounds): 169 General Appearance: WD/WN, no acute distress HEENT: normocephalic, atraumatic, anicteric, mucous membranes moist Respiratory/Chest: chest wall non-tender, lungs clear, normal breath sounds, no respiratory distress, no accessory muscle use Cardiovascular: normal peripheral pulses, normal rate, regular rhythm, no gallop/murmur Abdomen: normal bowel sounds, soft, non tender, no organomegaly, non distended Extremities: no cyanosis, no clubbing Skin: no rash, no lesions, no ulcers Laboratory Tests Test 11/10/16 07:35 Prothrombin Time 13.4 SEC (9.30-11.50) H Prothromb Time International Ratio 1.3 (0.9-1.1) H Current Medications Medications (Trade) Dose Ordered Sig/Christie Route PRN Reason Start Time Stop Time Status Last Admin Dose Admin Acetaminophen (Tylenol) 650 mg Q4H PRN ORAL fever 11/05/16 20:00 12/05/16 19:59 Al Hydroxide/Mg Hydroxide (Mylanta II) 30 ml Q6H PRN ORAL dyspepsia 11/05/16 20:00 12/05/16 19:59 Albuterol/ Ipratropium (DuoNeb 0.5-3(2.5)mg/3ml) 3 ml Q4H PRN HHN Shortness of Breath 11/05/16 20:00 11/10/16 19:59 Azithromycin (Zithromax) 250 mg DAILY ORAL 11/06/16 09:00 11/13/16 08:59 11/10/16 09:09 Cefepime HCl 1 gm/ Dextrose 50 ml @ 100 mls/hr EVERY 12 HOURS IVPB 11/05/16 21:00 11/12/16 20:59 11/10/16 09:11 Clonidine HCl (Catapres) 0.1 mg Q4H PRN ORAL For SBP > 160mmHg 11/05/16 20:00 12/05/16 19:59 Duloxetine HCl (Cymbalta) 60 mg DAILY ORAL 11/06/16 09:00 12/06/16 08:59 11/10/16 09:09 Enoxaparin Sodium (Lovenox) 110 mg Q24H SUBQ 11/08/16 13:00 12/08/16 12:59 11/10/16 13:27 Escitalopram Oxalate (Lexapro) 10 mg DAILY ORAL 11/06/16 09:00 12/06/16 08:59 11/10/16 09:09 Methocarbamol (Robaxin) 750 mg TID ORAL 11/06/16 09:00 12/06/16 08:59 11/10/16 13:26 Nitroglycerin (Ntg) 0.4 mg Q5M X 3 DOSES PRN SL Prn Chest Pain 11/05/16 19:45 12/05/16 19:44 11/07/16 19:58 Ondansetron HCl (Zofran) 4 mg Q6H PRN IVP Nausea & Vomiting 11/05/16 20:00 12/05/16 19:59 Oxycodone HCl (OxyCONTIN) 30 mg DAILY ORAL 11/06/16 09:00 11/13/16 08:59 11/10/16 09:11 Polyethylene Glycol (Miralax) 17 gm DAILYPRN PRN ORAL Constipation 11/05/16 20:00 12/05/16 19:59 Promethazine HCl/ Codeine (Phenergan with Codeine) 5 ml Q4H PRN ORAL For Cough 11/05/16 20:00 12/05/16 19:59 Quetiapine Fumarate (SEROquel) 100 mg DAILY ORAL 11/06/16 09:00 12/06/16 08:59 11/10/16 09:10 Temazepam (Restoril) 15 mg HSPRN PRN ORAL Insomnia 11/05/16 21:00 11/12/16 20:59 Topiramate (Topamax) 50 mg EVERY 12 HOURS ORAL 11/05/16 21:00 12/05/16 20:59 11/10/16 09:15 Vancomycin HCl/ Dextrose (Vancomycin/D5W 250ml) 250 ml @ 167 mls/hr Q12HR@0000,1200 IVPB 11/06/16 00:00 11/15/16 00:00 11/10/16 11:29 Warfarin Sodium (Coumadin per pharmacy) 1 ea DAILY PRN MISC Per rx protocol 11/08/16 14:00 12/08/16 13:59 Warfarin Sodium (Coumadin) 5 mg COUMADIN ONCE ORAL 11/10/16 17:00 11/10/16 17:01 Stanley Sofia M.D. Nov 10, 2016 16:28
[2016-11-10] MEDS ORDERED: Warfarin Sodium 5mg ORAL ONE (17:00)
[2016-11-10] MEDS ORDERED: NS 275ml ONE (17:21)
[2016-11-10] MEDS ORDERED: Tubing IV Secondary IV ONE (17:21)
[2016-11-10 20:00] VITALS: BP 106/55
[2016-11-11 00:53] VITALS: BP 105/58
[2016-11-11 04:17] VITALS: BP 111/70
[2016-11-11 08:07] VITALS: BP 120/71
[2016-11-11 08:24] LABS: INR 1.6 (0.9-1.1); PROTHROMBIN TIME 16.5 SEC (9.30-11.50)
[2016-11-11] MEDS: oxyCONTIN 10mg tab ORAL SCH (08:25)
[2016-11-11] MEDS: Topiramate 25mg tab ORAL SCH ×2 (08:25→21:25)
[2016-11-11] MEDS: Methocarbamol 750mg tab ORAL SCH ×3 (08:26→18:47)
[2016-11-11] MEDS: DULoxetine 30mg cap ORAL SCH (08:26)
--- NOTE | 2016-11-11 10:23 | General Progress Note ---
Assessment/Plan Assessment/Plan IMPRESSION: 1. Bilateraly PE on CTA 11/08/16 - continue coumadin/lovenox and goal INR 2-3, does not require a hypercoag workup 2. Anemia 2/2 chronic disease - stable 3. Thrombocytopenia. Potentially 2/2 infection, improved 4. Leukocytosis. Likely 2/2 underlying infection, improved 5. Probable pneumonia. Rx abx 6. Mild with fatty infiltration. 7. Community acquired pneumonia. 8. Human-immunodeficiency virus. on Meds 9. Dehydration. 10. Sinus tachycardia. RECOMMENDATIONS: 1. Continue lovenox 2. Continue coumadin 3. Antibiotics prn 4. Monitor counts, hgb goal >7.5 5. DVT prophylaxis with coumadin 6. Continue HIV meds per ID 7. Goal INR 2-3 8. Follow up on ID, Pulmonary and Cards recs 9. Discussed with staff. Thank you, Ricki Edmondson MD Subjective Constitutional: Reports: no symptoms HEENT: Reports: mouth pain Cardiovascular: Reports: no symptoms Respiratory: Reports: no symptoms Gastrointestinal/Abdominal: Reports: poor appetite Genitourinary: Reports: no symptoms Neurologic/Psychiatric: Reports: no symptoms Endocrine: Reports: no symptoms Hematologic/Lymphatic: Reports: anemia Allergies: Coded Allergies: No Known Allergies (Unverified , 01/08/13) Subjective stable, on coumadin and lovenox, not bleeding Objective Last 24 Hour Vital Signs Date Time Temp Pulse Resp B/P Pulse Ox O2 Delivery O2 Flow Rate FiO2 11/11/16 08:07 98.2 112 20 120/71 100 Room Air 11/11/16 08:00 113 11/11/16 07:55 121 20 Room Air 11/11/16 04:17 98.5 100 20 111/70 98 Nasal Cannula 3.0 11/11/16 04:00 111 11/11/16 00:53 98.7 112 21 105/58 94 Nasal Cannula 3.0 11/11/16 00:00 113 11/10/16 20:05 61 18 Room Air 21 11/10/16 20:00 124 11/10/16 20:00 97.7 117 22 106/55 94 Room Air 11/10/16 20:00 Room Air 11/10/16 20:00 98 Room Air 21 11/10/16 16:00 117 11/10/16 16:00 97.7 134 22 102/70 95 11/10/16 12:00 118 11/10/16 11:41 97.1 116 20 117/72 96 Room Air Intake and Output 11/10/16 11/11/16 19:00 07:00 Intake Total 500 ml 550 ml Output Total 650 ml Balance 500 ml -100 ml Intake Oral 200 ml 250 ml IV Total 300 ml 300 ml Output Urine Total 650 ml # Voids 1 2 Laboratory Tests 11/11/16 07:45: Prothrombin Time 16.5H, Prothromb Time International Ratio 1.6H Height (Feet): 5 Height (Inches): 6.00 Weight (Pounds): 169 General Appearance: no apparent distress EENT: TMs normal Neck: supple Cardiovascular: regular rhythm Respiratory/Chest: no respiratory distress Abdomen: soft Genitourinary/Rectal: heme negative stool Extremities: non-tender Edema: no edema noted Leg (L), no edema noted Leg (R) Edema: mild edema Neurologic: alert Skin: warm/dry Ricki Edmondson Nov 11, 2016 10:23
[2016-11-11] MEDS ORDERED: Enoxaparin 120 mg inj SUBQ SCH (11:36)
[2016-11-11 11:44] VITALS: BP 108/71
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
--- NOTE | 2016-11-11 15:45 | Pulmonology Progress Note ---
Assessment/Plan Problems: (1) Pulmonary embolism (2) HIV (human immunodeficiency virus infection) (3) HTN (hypertension) (4) Depression Assessment/Plan slightly better still tachycardic echo reviewed, normal LV function continue anticoagulation doppler of legs negative pt/ot on coumadin Less cough, phlegm resolved. Subjective ROS Limited/Unobtainable: No Constitutional: Reports: no symptoms HEENT: Repors: no symptoms Respiratory: Reports: no symptoms Allergies: Coded Allergies: No Known Allergies (Unverified , 01/08/13) Objective Last 24 Hour Vital Signs Date Time Temp Pulse Resp B/P Pulse Ox O2 Delivery O2 Flow Rate FiO2 11/11/16 12:00 110 11/11/16 11:44 96.8 113 20 108/71 96 Room Air 11/11/16 08:07 98.2 112 20 120/71 100 Room Air 11/11/16 08:00 113 11/11/16 07:55 121 20 Room Air 11/11/16 04:17 98.5 100 20 111/70 98 Nasal Cannula 3.0 11/11/16 04:00 111 11/11/16 00:53 98.7 112 21 105/58 94 Nasal Cannula 3.0 11/11/16 00:00 113 11/10/16 20:05 61 18 Room Air 21 11/10/16 20:00 124 11/10/16 20:00 97.7 117 22 106/55 94 Room Air 11/10/16 20:00 Room Air 11/10/16 20:00 98 Room Air 21 11/10/16 16:00 117 11/10/16 16:00 97.7 134 22 102/70 95 Intake and Output 11/10/16 11/11/16 19:00 07:00 Intake Total 500 ml 550 ml Output Total 650 ml Balance 500 ml -100 ml Intake Oral 200 ml 250 ml IV Total 300 ml 300 ml Output Urine Total 650 ml # Voids 1 2 General Appearance: WD/WN HEENT: normocephalic, atraumatic Respiratory/Chest: chest wall non-tender, lungs clear Cardiovascular: normal peripheral pulses, normal rate Abdomen: soft, non tender Genitourinary: normal external genitalia 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 Lymphatic: no neck adenopathy Laboratory Tests 11/11/16 07:45: Prothrombin Time 16.5H, Prothromb Time International Ratio 1.6H Current Medications Medications (Trade) Dose Ordered Sig/Christie Route PRN Reason Start Time Stop Time Status Last Admin Dose Admin Acetaminophen (Tylenol) 650 mg Q4H PRN ORAL fever 11/05/16 20:00 12/05/16 19:59 Al Hydroxide/Mg Hydroxide (Mylanta II) 30 ml Q6H PRN ORAL dyspepsia 11/05/16 20:00 12/05/16 19:59 Cefepime HCl 1 gm/ Dextrose 50 ml @ 100 mls/hr EVERY 12 HOURS IVPB 11/05/16 21:00 11/12/16 20:59 11/11/16 08:25 Clonidine HCl (Catapres) 0.1 mg Q4H PRN ORAL For SBP > 160mmHg 11/05/16 20:00 12/05/16 19:59 Duloxetine HCl (Cymbalta) 60 mg DAILY ORAL 11/06/16 09:00 12/06/16 08:59 11/11/16 08:26 Enoxaparin Sodium (Lovenox) 110 mg Q24H SUBQ 11/11/16 16:00 12/11/16 15:59 Escitalopram Oxalate (Lexapro) 10 mg DAILY ORAL 11/06/16 09:00 12/06/16 08:59 11/11/16 08:25 Methocarbamol (Robaxin) 750 mg TID ORAL 11/06/16 09:00 12/06/16 08:59 11/11/16 13:31 Nitroglycerin (Ntg) 0.4 mg Q5M X 3 DOSES PRN SL Prn Chest Pain 11/05/16 19:45 12/05/16 19:44 11/07/16 19:58 Ondansetron HCl (Zofran) 4 mg Q6H PRN IVP Nausea & Vomiting 11/05/16 20:00 12/05/16 19:59 Oxycodone HCl (OxyCONTIN) 30 mg DAILY ORAL 11/06/16 09:00 11/13/16 08:59 11/11/16 08:25 Polyethylene Glycol (Miralax) 17 gm DAILYPRN PRN ORAL Constipation 11/05/16 20:00 12/05/16 19:59 Promethazine HCl/ Codeine (Phenergan with Codeine) 5 ml Q4H PRN ORAL For Cough 11/05/16 20:00 12/05/16 19:59 Quetiapine Fumarate (SEROquel) 100 mg DAILY ORAL 11/06/16 09:00 12/06/16 08:59 11/11/16 08:26 Temazepam (Restoril) 15 mg HSPRN PRN ORAL Insomnia 11/05/16 21:00 11/12/16 20:59 Topiramate (Topamax) 50 mg EVERY 12 HOURS ORAL 11/05/16 21:00 12/05/16 20:59 11/11/16 08:25 Vancomycin HCl/ Dextrose (Vancomycin/D5W 250ml) 250 ml @ 167 mls/hr Q12HR@0000,1200 IVPB 11/06/16 00:00 11/15/16 00:00 11/11/16 11:16 Warfarin Sodium (Coumadin per pharmacy) 1 ea DAILY PRN MISC Per rx protocol 11/08/16 14:00 12/08/16 13:59 Warfarin Sodium (Coumadin) 3 mg COUMADIN ORAL 11/11/16 17:00 11/11/16 17:01 LESTER PISANO Nov 11, 2016 15:45
[2016-11-11 16:00] VITALS: BP 108/56
--- NOTE | 2016-11-11 16:24 | Infectious Diseases Prog Note ---
Assessment/Plan Problems: (1) CAP (community acquired pneumonia) Assessment & Plan: continue cefepime ,vancomycin for 10 days total, sputum culture showed no growth .influenza screening is negative (2) HIV (human immunodeficiency virus infection) Assessment & Plan: with high CD4 counts and undetectable viral load, continue previous HIV meds, follow up with HIV provider as an outpatient (3) HTN (hypertension) Assessment & Plan: stable continue po meds. (4) Depression Assessment & Plan: stable , continue cymbalta (5) Leukocytosis Assessment & Plan: improving , no evidence of lung abscess on CT chest with contrast (6) Pulmonary embolism Assessment & Plan: started on anticoagulation as per HEM/ONC Subjective Constitutional: Reports: no symptoms HEENT: Reports: no symptoms Respiratory: Reports: no symptoms Breasts: Reports: no symptoms Cardiovascular: Reports: no symptoms Gastrointestinal/Abdominal: Reports: no symptoms Genitourinary: Reports: no symptoms Neurologic: Reports: no symptoms Psychiatric: Reports: no symptoms Skin: Reports: no symptoms Endocrine: Reports: no symptoms Hematologic: Reports: no symptoms Allergies: Coded Allergies: No Known Allergies (Unverified , 01/08/13) Subjective he was doing better today, denied any flank pain, no fever or chills, no nausea or vomiting , no chest pain or SOB Objective Vital Signs Last 24 Hour Vital Signs Date Time Temp Pulse Resp B/P Pulse Ox O2 Delivery O2 Flow Rate FiO2 11/11/16 12:00 110 11/11/16 11:44 96.8 113 20 108/71 96 Room Air 11/11/16 08:07 98.2 112 20 120/71 100 Room Air 11/11/16 08:00 113 11/11/16 07:55 121 20 Room Air 11/11/16 04:17 98.5 100 20 111/70 98 Nasal Cannula 3.0 11/11/16 04:00 111 11/11/16 00:53 98.7 112 21 105/58 94 Nasal Cannula 3.0 11/11/16 00:00 113 11/10/16 20:05 61 18 Room Air 21 11/10/16 20:00 124 11/10/16 20:00 97.7 117 22 106/55 94 Room Air 11/10/16 20:00 Room Air 11/10/16 20:00 98 Room Air 21 Height (Feet): 5 Height (Inches): 6.00 Weight (Pounds): 169 General Appearance: WD/WN, no acute distress HEENT: normocephalic, atraumatic, anicteric, mucous membranes moist Respiratory/Chest: chest wall non-tender, lungs clear, normal breath sounds, no respiratory distress, no accessory muscle use Cardiovascular: normal peripheral pulses, normal rate, regular rhythm, no gallop/murmur Abdomen: normal bowel sounds, soft, non tender, no organomegaly, non distended , no mass Extremities: no cyanosis, no clubbing Skin: no rash, no lesions, no ulcers Laboratory Tests Test 11/11/16 07:45 Prothrombin Time 16.5 SEC (9.30-11.50) H Prothromb Time International Ratio 1.6 (0.9-1.1) H Current Medications Medications (Trade) Dose Ordered Sig/Christie Route PRN Reason Start Time Stop Time Status Last Admin Dose Admin Acetaminophen (Tylenol) 650 mg Q4H PRN ORAL fever 11/05/16 20:00 12/05/16 19:59 Al Hydroxide/Mg Hydroxide (Mylanta II) 30 ml Q6H PRN ORAL dyspepsia 11/05/16 20:00 12/05/16 19:59 Cefepime HCl 1 gm/ Dextrose 50 ml @ 100 mls/hr EVERY 12 HOURS IVPB 11/05/16 21:00 11/12/16 20:59 11/11/16 08:25 Clonidine HCl (Catapres) 0.1 mg Q4H PRN ORAL For SBP > 160mmHg 11/05/16 20:00 12/05/16 19:59 Duloxetine HCl (Cymbalta) 60 mg DAILY ORAL 11/06/16 09:00 12/06/16 08:59 11/11/16 08:26 Enoxaparin Sodium (Lovenox) 110 mg Q24H SUBQ 11/11/16 16:00 12/11/16 15:59 Escitalopram Oxalate (Lexapro) 10 mg DAILY ORAL 11/06/16 09:00 12/06/16 08:59 11/11/16 08:25 Methocarbamol (Robaxin) 750 mg TID ORAL 11/06/16 09:00 12/06/16 08:59 11/11/16 13:31 Nitroglycerin (Ntg) 0.4 mg Q5M X 3 DOSES PRN SL Prn Chest Pain 11/05/16 19:45 12/05/16 19:44 11/07/16 19:58 Ondansetron HCl (Zofran) 4 mg Q6H PRN IVP Nausea & Vomiting 11/05/16 20:00 12/05/16 19:59 Oxycodone HCl (OxyCONTIN) 30 mg DAILY ORAL 11/06/16 09:00 11/13/16 08:59 11/11/16 08:25 Polyethylene Glycol (Miralax) 17 gm DAILYPRN PRN ORAL Constipation 11/05/16 20:00 12/05/16 19:59 Promethazine HCl/ Codeine (Phenergan with Codeine) 5 ml Q4H PRN ORAL For Cough 11/05/16 20:00 12/05/16 19:59 Quetiapine Fumarate (SEROquel) 100 mg DAILY ORAL 11/06/16 09:00 12/06/16 08:59 11/11/16 08:26 Temazepam (Restoril) 15 mg HSPRN PRN ORAL Insomnia 11/05/16 21:00 11/12/16 20:59 Topiramate (Topamax) 50 mg EVERY 12 HOURS ORAL 11/05/16 21:00 12/05/16 20:59 11/11/16 08:25 Vancomycin HCl/ Dextrose (Vancomycin/D5W 250ml) 250 ml @ 167 mls/hr Q12HR@0000,1200 IVPB 11/06/16 00:00 11/12/16 23:59 11/11/16 11:16 Warfarin Sodium (Coumadin per pharmacy) 1 ea DAILY PRN MISC Per rx protocol 11/08/16 14:00 12/08/16 13:59 Warfarin Sodium (Coumadin) 3 mg COUMADIN ORAL 11/11/16 17:00 11/11/16 17:01 Stanley Sofia M.D. Nov 11, 2016 16:24
--- NOTE | 2016-11-11 16:29 | Cardiac Electrophysiology PN ---
Assessment/Plan Assessment/Plan 1. Bilateraly PE on Coumadin and Lovenox. INR not therapeutic yet. 2. Sinus Tachycardia due to pneumonia and PE. No atrial fibrillation. Echocardiogram showed normal left ventricle systolic function. 3. Hypotension. Resolved 4. Pneumonia, on Zithromax, cefepime, and vancomycin. 5. Human immunodeficiency virus 6. Depression, on Cymbalta HEAVENLY RN and Dr Sofia Subjective Subjective Alert in NAD . No chest pain or SOB. Wants to go home. Objective Last 24 Hour Vital Signs Date Time Temp Pulse Resp B/P Pulse Ox O2 Delivery O2 Flow Rate FiO2 11/11/16 16:00 98.4 115 19 108/56 95 Room Air 11/11/16 12:00 110 11/11/16 11:44 96.8 113 20 108/71 96 Room Air 11/11/16 08:07 98.2 112 20 120/71 100 Room Air 11/11/16 08:00 113 11/11/16 07:55 121 20 Room Air 11/11/16 04:17 98.5 100 20 111/70 98 Nasal Cannula 3.0 11/11/16 04:00 111 11/11/16 00:53 98.7 112 21 105/58 94 Nasal Cannula 3.0 11/11/16 00:00 113 11/10/16 20:05 61 18 Room Air 21 11/10/16 20:00 124 11/10/16 20:00 97.7 117 22 106/55 94 Room Air 11/10/16 20:00 Room Air 11/10/16 20:00 98 Room Air 21 Intake and Output 11/10/16 11/11/16 19:00 07:00 Intake Total 500 ml 550 ml Output Total 650 ml Balance 500 ml -100 ml Intake Oral 200 ml 250 ml IV Total 300 ml 300 ml Output Urine Total 650 ml # Voids 1 2 Laboratory Tests Test 11/11/16 07:45 Prothrombin Time 16.5 SEC (9.30-11.50) H Prothromb Time International Ratio 1.6 (0.9-1.1) H Objective HEAD AND NECK: No JVD. LUNGS: Clear. CARDIOVASCULAR: Tachycardic S1 and S2 with no gallop or murmur. ABDOMEN: Soft. EXTREMITIES: No pitting edema. KURT ALEGRIA Nov 11, 2016 16:29
[2016-11-11] MEDS ORDERED: Warfarin Sodium 3mg ORAL SCH (17:00)
[2016-11-11] MEDS: Enoxaparin 120 mg inj SUBQ SCH (17:25)
[2016-11-11 20:00] VITALS: BP 111/58
[2016-11-12 00:46] VITALS: BP 117/80
[2016-11-12 04:30] VITALS: BP 119/78
[2016-11-12 07:57] VITALS: BP 125/80
--- NOTE | 2016-11-12 08:13 | Cardiac Electrophysiology PN ---
Assessment/Plan Assessment/Plan 1. Bilateraly PE on Coumadin and Lovenox. INR not therapeutic yet. today 1.6. 2. Sinus Tachycardia due to pneumonia and PE. No atrial fibrillation. Echocardiogram showed normal left ventricle systolic function.Add low dose metoprolol 12.5 bid 3. Hypotension. Resolved. Watch now with addition of metoprolol. 4. Pneumonia, on Zithromax, cefepime, and vancomycin. 5. Human immunodeficiency virus 6. Depression, on Cymbalta DW RN Subjective Subjective Alert in NAD . No chest pain or SOB. Still sinus tach 108-128 bpm. Objective Last 24 Hour Vital Signs Date Time Temp Pulse Resp B/P Pulse Ox O2 Delivery O2 Flow Rate FiO2 11/12/16 07:57 96.5 110 20 125/80 98 Room Air 11/12/16 04:30 98.8 103 21 119/78 95 Room Air 11/12/16 04:00 107 11/12/16 01:00 110 11/12/16 00:46 98.4 114 20 117/80 96 Room Air 11/11/16 20:00 114 11/11/16 20:00 98.0 110 19 111/58 95 Room Air 11/11/16 19:00 108 18 Room Air 11/11/16 16:00 113 11/11/16 16:00 98.4 115 19 108/56 95 Room Air 11/11/16 12:00 110 11/11/16 11:44 96.8 113 20 108/71 96 Room Air Intake and Output 11/11/16 11/12/16 19:00 07:00 Intake Total 554 ml 350 ml Balance 554 ml 350 ml Intake Oral 120 ml IV Total 434 ml 350 ml # Voids 2 Labs Test 11/11/16 07:45 Prothrombin Time 16.5 SEC (9.30-11.50) Prothromb Time International Ratio 1.6 (0.9-1.1) Current Medications Medications (Trade) Dose Ordered Sig/Christie Route PRN Reason Start Time Stop Time Status Last Admin Dose Admin Acetaminophen (Tylenol) 650 mg Q4H PRN ORAL fever 11/05/16 20:00 12/05/16 19:59 Al Hydroxide/Mg Hydroxide (Mylanta II) 30 ml Q6H PRN ORAL dyspepsia 11/05/16 20:00 1/29/17 19:59 Cefepime HCl 1 gm/ Dextrose 50 ml @ 100 mls/hr EVERY 12 HOURS IVPB 11/05/16 21:00 11/12/16 20:59 11/11/16 21:25 Clonidine HCl (Catapres) 0.1 mg Q4H PRN ORAL For SBP > 160mmHg 11/05/16 20:00 12/05/16 19:59 Duloxetine HCl (Cymbalta) 60 mg DAILY ORAL 11/06/16 09:00 12/06/16 08:59 11/11/16 08:26 Enoxaparin Sodium (Lovenox) 110 mg Q24H SUBQ 11/11/16 16:00 12/11/16 15:59 11/11/16 17:25 Escitalopram Oxalate (Lexapro) 10 mg DAILY ORAL 11/06/16 09:00 12/06/16 08:59 11/11/16 08:25 Methocarbamol (Robaxin) 750 mg TID ORAL 11/06/16 09:00 12/06/16 08:59 11/11/16 18:47 Nitroglycerin (Ntg) 0.4 mg Q5M X 3 DOSES PRN SL Prn Chest Pain 11/05/16 19:45 12/05/16 19:44 11/07/16 19:58 Ondansetron HCl (Zofran) 4 mg Q6H PRN IVP Nausea & Vomiting 11/05/16 20:00 12/05/16 19:59 Oxycodone HCl (OxyCONTIN) 30 mg DAILY ORAL 11/06/16 09:00 11/13/16 08:59 11/11/16 08:25 Polyethylene Glycol (Miralax) 17 gm DAILYPRN PRN ORAL Constipation 11/05/16 20:00 12/05/16 19:59 Promethazine HCl/ Codeine (Phenergan with Codeine) 5 ml Q4H PRN ORAL For Cough 11/05/16 20:00 12/05/16 19:59 Quetiapine Fumarate (SEROquel) 100 mg DAILY ORAL 11/06/16 09:00 12/06/16 08:59 11/11/16 08:26 Temazepam (Restoril) 15 mg HSPRN PRN ORAL Insomnia 11/05/16 21:00 11/12/16 20:59 Topiramate (Topamax) 50 mg EVERY 12 HOURS ORAL 11/05/16 21:00 12/05/16 20:59 11/11/16 21:25 Vancomycin HCl/ Dextrose (Vancomycin/D5W 250ml) 250 ml @ 167 mls/hr Q12HR@0000,1200 IVPB 11/06/16 00:00 11/12/16 23:59 11/12/16 00:27 Warfarin Sodium (Coumadin per pharmacy) 1 ea DAILY PRN MISC Per rx protocol 11/08/16 14:00 12/08/16 13:59 Objective HEAD AND NECK: No JVD. LUNGS: Clear. CARDIOVASCULAR: Tachycardic S1 and S2 with no gallop or murmur. ABDOMEN: Soft. EXTREMITIES: No pitting edema. KURT ALEGRIA Nov 12, 2016 08:13
[2016-11-12 08:50] LABS: INR 1.8 (0.9-1.1)
[2016-11-12] MEDS ORDERED: Metoprolol Tartrate 12.5mg TAB ORAL SCH (09:00)
[2016-11-12] MEDS: DULoxetine 30mg cap ORAL SCH (09:05)
[2016-11-12] MEDS: Methocarbamol 750mg tab ORAL SCH ×3 (09:06→18:00)
[2016-11-12] MEDS: oxyCONTIN 10mg tab ORAL SCH (09:06)
[2016-11-12] MEDS: Topiramate 25mg tab ORAL SCH ×2 (09:06→23:06)
[2016-11-12 11:29] VITALS: BP 101/57
--- NOTE | 2016-11-12 14:58 | Pulmonology Progress Note ---
Assessment/Plan Problems: (1) Pulmonary embolism (2) HIV (human immunodeficiency virus infection) (3) HTN (hypertension) (4) Depression Assessment/Plan slightly better still tachycardic around 110 echo reviewed, normal LV function continue anticoagulation doppler of legs negative pt/ot on coumadin Less cough, phlegm resolved. might go to med/surg if ok with cardiology Subjective ROS Limited/Unobtainable: No Interval Events: still tachycardic Allergies: Coded Allergies: No Known Allergies (Unverified , 01/08/13) Objective Last 24 Hour Vital Signs Date Time Temp Pulse Resp B/P Pulse Ox O2 Delivery O2 Flow Rate FiO2 11/12/16 12:00 107 11/12/16 11:29 97.3 108 20 101/57 96 Nasal Cannula 4.0 11/12/16 09:06 110 125/80 11/12/16 08:00 106 11/12/16 07:57 96.5 110 20 125/80 98 Room Air 11/12/16 07:00 110 18 Room Air 11/12/16 04:30 98.8 103 21 119/78 95 Room Air 11/12/16 04:00 107 11/12/16 01:00 110 11/12/16 00:46 98.4 114 20 117/80 96 Room Air 11/11/16 20:00 114 11/11/16 20:00 98.0 110 19 111/58 95 Room Air 11/11/16 19:00 108 18 Room Air 11/11/16 16:00 113 11/11/16 16:00 98.4 115 19 108/56 95 Room Air Intake and Output 11/11/16 11/12/16 19:00 07:00 Intake Total 554 ml 350 ml Balance 554 ml 350 ml Intake Oral 120 ml IV Total 434 ml 350 ml # Voids 2 General Appearance: WD/WN HEENT: normocephalic, atraumatic Cardiovascular: normal peripheral pulses, regular rhythm Extremities: no cyanosis, no clubbing Skin: no ulcers Laboratory Tests 11/12/16 08:25: Prothrombin Time 19.0H, Prothromb Time International Ratio 1.8H Current Medications Medications (Trade) Dose Ordered Sig/Christie Route PRN Reason Start Time Stop Time Status Last Admin Dose Admin Acetaminophen (Tylenol) 650 mg Q4H PRN ORAL fever 11/05/16 20:00 12/05/16 19:59 Al Hydroxide/Mg Hydroxide (Mylanta II) 30 ml Q6H PRN ORAL dyspepsia 11/05/16 20:00 12/05/16 19:59 Cefepime HCl 1 gm/ Dextrose 50 ml @ 100 mls/hr EVERY 12 HOURS IVPB 11/05/16 21:00 11/12/16 20:59 11/12/16 09:07 Clonidine HCl (Catapres) 0.1 mg Q4H PRN ORAL For SBP > 160mmHg 11/05/16 20:00 12/05/16 19:59 Duloxetine HCl (Cymbalta) 60 mg DAILY ORAL 11/06/16 09:00 12/06/16 08:59 11/12/16 09:05 Enoxaparin Sodium (Lovenox) 110 mg Q24H SUBQ 11/11/16 16:00 12/11/16 15:59 11/11/16 17:25 Escitalopram Oxalate (Lexapro) 10 mg DAILY ORAL 11/06/16 09:00 12/06/16 08:59 11/12/16 09:06 Methocarbamol (Robaxin) 750 mg TID ORAL 11/06/16 09:00 12/06/16 08:59 11/12/16 13:40 Metoprolol Tartrate (Lopressor) 12.5 mg Q12HR ORAL 11/12/16 21:00 12/12/16 20:59 Nitroglycerin (Ntg) 0.4 mg Q5M X 3 DOSES PRN SL Prn Chest Pain 11/05/16 19:45 12/05/16 19:44 11/07/16 19:58 Ondansetron HCl (Zofran) 4 mg Q6H PRN IVP Nausea & Vomiting 11/05/16 20:00 12/05/16 19:59 Oxycodone HCl (OxyCONTIN) 30 mg DAILY ORAL 11/06/16 09:00 11/13/16 08:59 11/12/16 09:06 Polyethylene Glycol (Miralax) 17 gm DAILYPRN PRN ORAL Constipation 11/05/16 20:00 12/05/16 19:59 Promethazine HCl/ Codeine (Phenergan with Codeine) 5 ml Q4H PRN ORAL For Cough 11/05/16 20:00 12/05/16 19:59 Quetiapine Fumarate (SEROquel) 100 mg DAILY ORAL 11/06/16 09:00 12/06/16 08:59 11/12/16 09:06 Temazepam (Restoril) 15 mg HSPRN PRN ORAL Insomnia 11/05/16 21:00 11/12/16 20:59 Topiramate (Topamax) 50 mg EVERY 12 HOURS ORAL 11/05/16 21:00 12/05/16 20:59 11/12/16 09:06 Vancomycin HCl/ Dextrose (Vancomycin/D5W 250ml) 250 ml @ 167 mls/hr Q12HR@0000,1200 IVPB 11/06/16 00:00 11/12/16 23:59 11/12/16 12:15 Warfarin Sodium (Coumadin per pharmacy) 1 ea DAILY PRN MISC Per rx protocol 11/08/16 14:00 12/08/16 13:59 Warfarin Sodium (Coumadin) 3 mg COUMADIN ORAL 11/12/16 17:00 11/12/16 17:01 LESTER PISANO Nov 12, 2016 14:58
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
[2016-11-12 16:00] VITALS: BP 111/73
--- NOTE | 2016-11-12 16:27 | Infectious Diseases Prog Note ---
Assessment/Plan Problems: (1) CAP (community acquired pneumonia) Assessment & Plan: continue cefepime ,vancomycin for 10 days total, sputum culture showed no growth .influenza screening is negative (2) HIV (human immunodeficiency virus infection) Assessment & Plan: with high CD4 counts and undetectable viral load, continue previous HIV meds, follow up with HIV provider as an outpatient (3) HTN (hypertension) Assessment & Plan: stable continue po meds. (4) Depression Assessment & Plan: stable , continue cymbalta (5) Leukocytosis Assessment & Plan: improving , no evidence of lung abscess on CT chest with contrast (6) Pulmonary embolism Assessment & Plan: started on anticoagulation as per HEM/ONC Subjective Constitutional: Reports: no symptoms HEENT: Reports: no symptoms Respiratory: Reports: no symptoms Breasts: Reports: no symptoms Cardiovascular: Reports: no symptoms Gastrointestinal/Abdominal: Reports: no symptoms Genitourinary: Reports: no symptoms Neurologic: Reports: no symptoms Psychiatric: Reports: no symptoms Skin: Reports: no symptoms Allergies: Coded Allergies: No Known Allergies (Unverified , 01/08/13) Subjective he was doing better today, denied any flank pain, no fever or chills, no nausea or vomiting , no chest pain or SOB Objective Vital Signs Last 24 Hour Vital Signs Date Time Temp Pulse Resp B/P Pulse Ox O2 Delivery O2 Flow Rate FiO2 11/12/16 12:00 107 11/12/16 11:29 97.3 108 20 101/57 96 Nasal Cannula 4.0 11/12/16 09:06 110 125/80 11/12/16 08:00 106 11/12/16 07:57 96.5 110 20 125/80 98 Room Air 11/12/16 07:00 110 18 Room Air 11/12/16 04:30 98.8 103 21 119/78 95 Room Air 11/12/16 04:00 107 11/12/16 01:00 110 11/12/16 00:46 98.4 114 20 117/80 96 Room Air 11/11/16 20:00 114 11/11/16 20:00 98.0 110 19 111/58 95 Room Air 11/11/16 19:00 108 18 Room Air Height (Feet): 5 Height (Inches): 6.00 Weight (Pounds): 169 General Appearance: WD/WN, no acute distress HEENT: normocephalic, atraumatic, anicteric, mucous membranes moist Respiratory/Chest: chest wall non-tender, lungs clear, normal breath sounds, no respiratory distress, no accessory muscle use Cardiovascular: normal peripheral pulses, normal rate, regular rhythm, no gallop/murmur Abdomen: normal bowel sounds, soft, non tender, no organomegaly, non distended , no mass Extremities: no cyanosis, no clubbing Skin: no rash, no lesions Laboratory Tests Test 11/12/16 08:25 Prothrombin Time 19.0 SEC (9.30-11.50) H Prothromb Time International Ratio 1.8 (0.9-1.1) H Current Medications Medications (Trade) Dose Ordered Sig/Christie Route PRN Reason Start Time Stop Time Status Last Admin Dose Admin Acetaminophen (Tylenol) 650 mg Q4H PRN ORAL fever 11/05/16 20:00 12/05/16 19:59 Al Hydroxide/Mg Hydroxide (Mylanta II) 30 ml Q6H PRN ORAL dyspepsia 11/05/16 20:00 12/05/16 19:59 Cefepime HCl 1 gm/ Dextrose 50 ml @ 100 mls/hr EVERY 12 HOURS IVPB 11/05/16 21:00 11/12/16 20:59 11/12/16 09:07 Clonidine HCl (Catapres) 0.1 mg Q4H PRN ORAL For SBP > 160mmHg 11/05/16 20:00 12/05/16 19:59 Duloxetine HCl (Cymbalta) 60 mg DAILY ORAL 11/06/16 09:00 12/06/16 08:59 11/12/16 09:05 Enoxaparin Sodium (Lovenox) 110 mg Q24H SUBQ 11/11/16 16:00 12/11/16 15:59 11/11/16 17:25 Escitalopram Oxalate (Lexapro) 10 mg DAILY ORAL 11/06/16 09:00 12/06/16 08:59 11/12/16 09:06 Methocarbamol (Robaxin) 750 mg TID ORAL 11/06/16 09:00 12/06/16 08:59 11/12/16 13:40 Metoprolol Tartrate (Lopressor) 12.5 mg Q12HR ORAL 11/12/16 21:00 12/12/16 20:59 Nitroglycerin (Ntg) 0.4 mg Q5M X 3 DOSES PRN SL Prn Chest Pain 11/05/16 19:45 12/05/16 19:44 11/07/16 19:58 Ondansetron HCl (Zofran) 4 mg Q6H PRN IVP Nausea & Vomiting 11/05/16 20:00 12/05/16 19:59 Oxycodone HCl (OxyCONTIN) 30 mg DAILY ORAL 11/06/16 09:00 11/13/16 08:59 11/12/16 09:06 Polyethylene Glycol (Miralax) 17 gm DAILYPRN PRN ORAL Constipation 11/05/16 20:00 12/05/16 19:59 Promethazine HCl/ Codeine (Phenergan with Codeine) 5 ml Q4H PRN ORAL For Cough 11/05/16 20:00 12/05/16 19:59 Quetiapine Fumarate (SEROquel) 100 mg DAILY ORAL 11/06/16 09:00 12/06/16 08:59 11/12/16 09:06 Temazepam (Restoril) 15 mg HSPRN PRN ORAL Insomnia 11/05/16 21:00 11/12/16 20:59 Topiramate (Topamax) 50 mg EVERY 12 HOURS ORAL 11/05/16 21:00 12/05/16 20:59 11/12/16 09:06 Vancomycin HCl/ Dextrose (Vancomycin/D5W 250ml) 250 ml @ 167 mls/hr Q12HR@0000,1200 IVPB 11/06/16 00:00 11/12/16 23:59 11/12/16 12:15 Warfarin Sodium (Coumadin per pharmacy) 1 ea DAILY PRN MISC Per rx protocol 11/08/16 14:00 12/08/16 13:59 Warfarin Sodium (Coumadin) 3 mg COUMADIN ORAL 11/12/16 17:00 11/12/16 17:01 Stanley Sofia M.D. Nov 12, 2016 16:27
[2016-11-12] MEDS ORDERED: Warfarin Sodium 3mg ORAL SCH (17:00)
[2016-11-12] MEDS: Enoxaparin 120 mg inj SUBQ SCH (17:12)
--- NOTE | 2016-11-12 18:51 | General Progress Note ---
Assessment/Plan Assessment/Plan IMPRESSION: 1. Bilateraly PE on CTA 11/08/16 - continue coumadin/lovenox and goal INR 2-3, does not require a hypercoag workup 2. Anemia 2/2 chronic disease - stable 3. Thrombocytopenia. Potentially 2/2 infection, improved 4. Leukocytosis. Likely 2/2 underlying infection, improved 5. Probable pneumonia. Rx abx 6. Mild with fatty infiltration. 7. Community acquired pneumonia. 8. Human-immunodeficiency virus. on Meds 9. Dehydration. 10. Sinus tachycardia. RECOMMENDATIONS: 1. Continue lovenox 2. Continue coumadin 3. Antibiotics prn 4. Monitor counts, hgb goal >7.5 5. DVT prophylaxis with coumadin 6. Continue HIV meds per ID 7. Goal INR 2-3 8. Follow up on ID, Pulmonary and Cards recs 9. Discussed with staff Thank you, Ricki Edmondson MD Subjective Constitutional: Reports: no symptoms HEENT: Reports: no symptoms Cardiovascular: Reports: no symptoms Respiratory: Reports: no symptoms Gastrointestinal/Abdominal: Reports: no symptoms Genitourinary: Reports: no symptoms Neurologic/Psychiatric: Reports: no symptoms Endocrine: Reports: no symptoms Hematologic/Lymphatic: Reports: anemia Allergies: Coded Allergies: No Known Allergies (Unverified , 01/08/13) Subjective stable, on coumadin, inr subtherapeutic Objective Last 24 Hour Vital Signs Date Time Temp Pulse Resp B/P Pulse Ox O2 Delivery O2 Flow Rate FiO2 11/12/16 16:00 97.7 101 19 111/73 99 Nasal Cannula 4.0 11/12/16 12:00 107 11/12/16 11:29 97.3 108 20 101/57 96 Nasal Cannula 4.0 11/12/16 09:06 110 125/80 11/12/16 08:00 106 11/12/16 07:57 96.5 110 20 125/80 98 Room Air 11/12/16 07:00 110 18 Room Air 11/12/16 04:30 98.8 103 21 119/78 95 Room Air 11/12/16 04:00 107 11/12/16 01:00 110 11/12/16 00:46 98.4 114 20 117/80 96 Room Air 11/11/16 20:00 114 11/11/16 20:00 98.0 110 19 111/58 95 Room Air 11/11/16 19:00 108 18 Room Air Intake and Output 11/11/16 11/12/16 19:00 07:00 Intake Total 554 ml 350 ml Balance 554 ml 350 ml Intake Oral 120 ml IV Total 434 ml 350 ml # Voids 2 Laboratory Tests 11/12/16 08:25: Prothrombin Time 19.0H, Prothromb Time International Ratio 1.8H Height (Feet): 5 Height (Inches): 6.00 Weight (Pounds): 169 General Appearance: no apparent distress EENT: TMs normal Neck: supple Cardiovascular: regular rhythm Respiratory/Chest: lungs clear Abdomen: non tender Extremities: normal range of motion Edema: 1+ Leg (L), 1+ Leg (R) Edema: mild edema Neurologic: alert Skin: warm/dry Ricki Edmondson Nov 12, 2016 18:51
[2016-11-12 20:00] VITALS: BP 103/63
[2016-11-12] MEDS: Metoprolol Tartrate 12.5mg TAB ORAL SCH (21:00)
[2016-11-13 00:26] VITALS: BP 134/84
[2016-11-13 04:24] VITALS: BP 126/83
[2016-11-13 07:31] LABS: BASOPHILS % (AUTO) 0.4 % (0.0-2.0); LYMPHOCYTES % (AUTO) 14.3 % (20.0-45.0); MEAN CORPUSCULAR HEMOGLOBIN 29.6 PG (27.0-31.0); MEAN CORPUSCULAR HGB CONC 33.7 G/DL (32.0-36.0); MEAN CORPUSCULAR VOLUME 88 FL (80-99); MEAN PLATELET VOLUME 6.5 FL (6.5-10.1); MONOCYTES % (AUTO) 11.2 % (1.0-10.0); NEUTROPHILS % (AUTO) 73.1 % (45.0-75.0); PLATELET COUNT 246 K/UL (150-450); RED BLOOD COUNT 3.49 M/UL (4.70-6.10); RED CELL DISTRIBUTION WIDTH 14.1 % (11.6-14.8); WHITE BLOOD COUNT 7.2 K/UL (4.8-10.8)
--- NOTE | 2016-11-13 09:07 | General Progress Note ---
Assessment/Plan Assessment/Plan IMPRESSION: 1. Bilateraly PE on CTA 11/08/16 - continue coumadin/lovenox and goal INR 2-3, does not require a hypercoag workup 2. Anemia 2/2 chronic disease - stable 3. Thrombocytopenia. Potentially 2/2 infection, improved 4. Leukocytosis. Likely 2/2 underlying infection, improved 5. Probable pneumonia. Rx abx 6. Mild with fatty infiltration. 7. Community acquired pneumonia. 8. Human-immunodeficiency virus. on Meds 9. Dehydration. 10. Sinus tachycardia. RECOMMENDATIONS: 1. Continue lovenox 2. Continue coumadin 3. Antibiotics prn basis 4. Monitor counts, hgb goal >7.5 5. DVT prophylaxis with coumadin 6. Continue HIV meds per ID 7. Goal INR 2-3 8. Follow up on ID, Pulmonary and Cards recs 9. Discussed with staff Thank you, Myranda Edmondson MD Subjective Constitutional: Reports: no symptoms HEENT: Reports: no symptoms Cardiovascular: Reports: no symptoms Respiratory: Reports: no symptoms Gastrointestinal/Abdominal: Reports: poor appetite Genitourinary: Reports: no symptoms Neurologic/Psychiatric: Reports: no symptoms Endocrine: Reports: no symptoms Hematologic/Lymphatic: Reports: anemia Allergies: Coded Allergies: No Known Allergies (Unverified , 01/08/13) Subjective no complaints, no bleeding reported Objective Last 24 Hour Vital Signs Date Time Temp Pulse Resp B/P Pulse Ox O2 Delivery O2 Flow Rate FiO2 11/13/16 07:40 108 20 11/13/16 04:24 98.6 102 20 126/83 95 Room Air 11/13/16 04:00 109 11/13/16 00:26 97.9 111 22 134/84 97 Room Air 11/13/16 00:00 110 11/12/16 21:00 104 103/63 11/12/16 20:00 97.8 104 19 103/63 99 Nasal Cannula 4.0 11/12/16 20:00 103 11/12/16 19:28 106 18 Room Air 11/12/16 16:00 97.7 101 19 111/73 99 Nasal Cannula 4.0 11/12/16 16:00 98 11/12/16 12:00 107 11/12/16 11:29 97.3 108 20 101/57 96 Nasal Cannula 4.0 Intake and Output 11/12/16 11/13/16 19:00 07:00 Intake Total 540 ml Output Total 500 ml Balance 540 ml -500 ml Intake Oral 240 ml IV Total 300 ml Output Urine Total 500 ml # Voids 1 2 # Bowel Movements 1 Laboratory Tests 11/13/16 06:40: White Blood Count 7.2, Red Blood Count 3.49L, Hemoglobin 10.3L, Hematocrit 30.7L , Mean Corpuscular Volume 88, Mean Corpuscular Hemoglobin 29.6, Mean Corpuscular Hemoglobin Concent 33.7, Red Cell Distribution Width 14.1, Platelet Count 246, Mean Platelet Volume 6.5, Neutrophils (%) (Auto) 73.1, Lymphocytes (% ) (Auto) 14.3L, Monocytes (%) (Auto) 11.2H, Eosinophils (%) (Auto) 1.0, Basophils (%) (Auto) 0.4 Height (Feet): 5 Height (Inches): 6.00 Weight (Pounds): 169 General Appearance: no apparent distress EENT: normal ENT inspection Neck: supple Cardiovascular: normal rate Respiratory/Chest: lungs clear Abdomen: non tender Extremities: non-tender Edema: no edema noted Leg (L), no edema noted Leg (R) Edema: mild edema Neurologic: alert Skin: warm/dry MYRANDA EDMONDSON Nov 13, 2016 09:07
[2016-11-13 09:34] VITALS: BP 114/67
[2016-11-13] MEDS: Metoprolol Tartrate 12.5mg TAB ORAL SCH ×2 (09:43→21:01)
[2016-11-13] MEDS: Methocarbamol 750mg tab ORAL SCH ×3 (09:44→17:40)
[2016-11-13] MEDS: DULoxetine 30mg cap ORAL SCH (09:44)
[2016-11-13] MEDS: Topiramate 25mg tab ORAL SCH ×2 (10:01→21:00)
--- NOTE | 2016-11-13 11:37 | Cardiac Electrophysiology PN ---
Assessment/Plan Assessment/Plan 1. Bilateraly PE on Coumadin and Lovenox. INR today 1.8. 2. Sinus Tachycardia due to pneumonia and PE. No atrial fibrillation. Echocardiogram showed normal left ventricle systolic function.Better on metoprolol 12.5 bid 3. Hypotension. Resolved despite metoprolol. 4. Pneumonia, now off antibiotics 5. Human immunodeficiency virus 6. Depression, on Cymbalta DW RN Subjective Subjective Alert in NAD . No chest pain or SOB.On tele. Objective Last 24 Hour Vital Signs Date Time Temp Pulse Resp B/P Pulse Ox O2 Delivery O2 Flow Rate FiO2 11/13/16 09:43 112 114/67 11/13/16 09:34 97.0 112 114/67 Room Air 11/13/16 07:40 108 20 11/13/16 04:24 98.6 102 20 126/83 95 Room Air 11/13/16 04:00 109 11/13/16 00:26 97.9 111 22 134/84 97 Room Air 11/13/16 00:00 110 11/12/16 21:00 104 103/63 11/12/16 20:00 97.8 104 19 103/63 99 Nasal Cannula 4.0 11/12/16 20:00 103 11/12/16 19:28 106 18 Room Air 11/12/16 16:00 97.7 101 19 111/73 99 Nasal Cannula 4.0 11/12/16 16:00 98 11/12/16 12:00 107 Intake and Output 11/12/16 11/13/16 19:00 07:00 Intake Total 540 ml Output Total 500 ml Balance 540 ml -500 ml Intake Oral 240 ml IV Total 300 ml Output Urine Total 500 ml # Voids 1 2 # Bowel Movements 1 Laboratory Tests Test 11/13/16 06:40 White Blood Count 7.2 K/UL (4.8-10.8) Red Blood Count 3.49 M/UL (4.70-6.10) L Hemoglobin 10.3 G/DL (14.2-18.0) L Hematocrit 30.7 % (42.0-52.0) L Mean Corpuscular Volume 88 FL (80-99) Mean Corpuscular Hemoglobin 29.6 PG (27.0-31.0) Mean Corpuscular Hemoglobin Concent 33.7 G/DL (32.0-36.0) Red Cell Distribution Width 14.1 % (11.6-14.8) Platelet Count 246 K/UL (150-450) Mean Platelet Volume 6.5 FL (6.5-10.1) Neutrophils (%) (Auto) 73.1 % (45.0-75.0) Lymphocytes (%) (Auto) 14.3 % (20.0-45.0) L Monocytes (%) (Auto) 11.2 % (1.0-10.0) H Eosinophils (%) (Auto) 1.0 % (0.0-3.0) Basophils (%) (Auto) 0.4 % (0.0-2.0) Objective HEAD AND NECK: No JVD. LUNGS: Clear. CARDIOVASCULAR: Tachycardic S1 and S2 with no gallop or murmur. ABDOMEN: Soft. EXTREMITIES: No pitting edema. KURT ALEGRIA Nov 13, 2016 11:37
[2016-11-13 12:00] VITALS: BP 104/67
[2016-11-13 12:07] LABS: PROTHROMBIN TIME 21.1 SEC (9.30-11.50)
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
--- NOTE | 2016-11-13 13:48 | Pulmonology Progress Note ---
Assessment/Plan Assessment/Plan ASSESSMENT bilateral PE CAP Sinus tachycardia HIV status depression renal insufficiency 2 to dehydration anemia of chronic disease PLAN OF CARE tele Bilateral PE on CTA 11/08/16 - continue Coumadin/Lovenox , INR -2.0 today, anticipate dc Lovenox in am venous Duplex BLE negative heme follows, no hypercoagulability workup needed as per heme s/p abx Rx, ID follows , observed off abx O2 HH prn fu with CXR blood cx negative, influenza screen test negative, sputum cx if able, antitussive prn ECHO with preserved EF, mild LVH BP stable, on low dose BB ST likely 2 to dehydration and PNA (as per cardio PT/OT hepatitis panel negative CD4-657, HAART Rx per ID continue Cymbalta and Lexapro monitor renal parameters, avoid nephrotoxic, creat down to normal after OV hydration case discussed and evaluated by supervising physician Subjective Allergies: Coded Allergies: No Known Allergies (Unverified , 01/08/13) Subjective leukocytosis resolved, afebrile on RA sat stable, no signs of respiratory distress Objective Last 24 Hour Vital Signs Date Time Temp Pulse Resp B/P Pulse Ox O2 Delivery O2 Flow Rate FiO2 11/13/16 09:43 112 114/67 11/13/16 09:34 97.0 112 114/67 Room Air 11/13/16 07:40 108 20 11/13/16 04:24 98.6 102 20 126/83 95 Room Air 11/13/16 04:00 109 11/13/16 00:26 97.9 111 22 134/84 97 Room Air 11/13/16 00:00 110 11/12/16 21:00 104 103/63 11/12/16 20:00 97.8 104 19 103/63 99 Nasal Cannula 4.0 11/12/16 20:00 103 11/12/16 19:28 106 18 Room Air 11/12/16 16:00 97.7 101 19 111/73 99 Nasal Cannula 4.0 11/12/16 16:00 98 Intake and Output 11/12/16 11/13/16 19:00 07:00 Intake Total 540 ml Output Total 500 ml Balance 540 ml -500 ml Intake Oral 240 ml IV Total 300 ml Output Urine Total 500 ml # Voids 1 2 # Bowel Movements 1 General Appearance: no acute distress, other - awake, responsive, HEENT: normocephalic, atraumatic, anicteric, mucous membranes moist Respiratory/Chest: lungs clear - with moderate air entry , no respiratory distress, no accessory muscle use Cardiovascular: regular rhythm, no JVD, tachycardia - 100-110 Abdomen: normal bowel sounds, soft, non tender, non distended Genitourinary: normal external genitalia Extremities: no edema, pedal pulses normal Neurologic/Psychiatric: no motor/sensory deficits, alert, responsive Musculoskeletal: normal muscle bulk Laboratory Tests 11/13/16 06:40: White Blood Count 7.2, Red Blood Count 3.49L, Hemoglobin 10.3L, Hematocrit 30.7L , Mean Corpuscular Volume 88, Mean Corpuscular Hemoglobin 29.6, Mean Corpuscular Hemoglobin Concent 33.7, Red Cell Distribution Width 14.1, Platelet Count 246, Mean Platelet Volume 6.5, Neutrophils (%) (Auto) 73.1, Lymphocytes (% ) (Auto) 14.3L, Monocytes (%) (Auto) 11.2H, Eosinophils (%) (Auto) 1.0, Basophils (%) (Auto) 0.4 11/13/16 11:00: Prothrombin Time 21.1H, Prothromb Time International Ratio 2.0H Current Medications Medications (Trade) Dose Ordered Sig/Christie Route PRN Reason Start Time Stop Time Status Last Admin Dose Admin Acetaminophen (Tylenol) 650 mg Q4H PRN ORAL fever 11/05/16 20:00 12/05/16 19:59 Al Hydroxide/Mg Hydroxide (Mylanta II) 30 ml Q6H PRN ORAL dyspepsia 11/05/16 20:00 12/05/16 19:59 Clonidine HCl (Catapres) 0.1 mg Q4H PRN ORAL For SBP > 160mmHg 11/05/16 20:00 12/05/16 19:59 Duloxetine HCl (Cymbalta) 60 mg DAILY ORAL 11/06/16 09:00 12/06/16 08:59 11/13/16 09:44 Enoxaparin Sodium (Lovenox) 110 mg Q24H SUBQ 11/11/16 16:00 12/11/16 15:59 11/12/16 17:12 Escitalopram Oxalate (Lexapro) 10 mg DAILY ORAL 11/06/16 09:00 12/06/16 08:59 11/13/16 09:43 Methocarbamol (Robaxin) 750 mg TID ORAL 11/06/16 09:00 12/06/16 08:59 11/13/16 13:09 Metoprolol Tartrate (Lopressor) 12.5 mg Q12HR ORAL 11/12/16 21:00 12/12/16 20:59 11/13/16 09:43 Nitroglycerin (Ntg) 0.4 mg Q5M X 3 DOSES PRN SL Prn Chest Pain 11/05/16 19:45 12/05/16 19:44 11/07/16 19:58 Ondansetron HCl (Zofran) 4 mg Q6H PRN IVP Nausea & Vomiting 11/05/16 20:00 12/05/16 19:59 Polyethylene Glycol (Miralax) 17 gm DAILYPRN PRN ORAL Constipation 11/05/16 20:00 12/05/16 19:59 Promethazine HCl/ Codeine (Phenergan with Codeine) 5 ml Q4H PRN ORAL For Cough 11/05/16 20:00 12/05/16 19:59 Quetiapine Fumarate (SEROquel) 100 mg DAILY ORAL 11/06/16 09:00 12/06/16 08:59 11/13/16 09:44 Topiramate (Topamax) 50 mg EVERY 12 HOURS ORAL 11/05/16 21:00 12/05/16 20:59 11/13/16 10:01 Warfarin Sodium (Coumadin per pharmacy) 1 ea DAILY PRN MISC Per rx protocol 11/08/16 14:00 12/08/16 13:59 Warfarin Sodium (Coumadin) 3 mg COUMADIN ORAL 11/13/16 17:00 11/13/16 17:01 Jose David ([facility])Elvira NP Nov 13, 2016 13:47
--- NOTE | 2016-11-13 14:53 | Infectious Diseases Prog Note ---
Assessment/Plan Problems: (1) CAP (community acquired pneumonia) Assessment & Plan: received cefepime ,vancomycin for 10 days total already , will D/C , sputum culture showed no growth .influenza screening is negative (2) HIV (human immunodeficiency virus infection) Assessment & Plan: with high CD4 counts and undetectable viral load, continue previous HIV meds, follow up with HIV provider as an outpatient (3) HTN (hypertension) Assessment & Plan: stable continue po meds. (4) Depression Assessment & Plan: stable , continue cymbalta (5) Leukocytosis Assessment & Plan: improving , no evidence of lung abscess on CT chest with contrast (6) Pulmonary embolism Assessment & Plan: started on anticoagulation as per HEM/ONC, monitor INR Subjective Constitutional: Reports: no symptoms HEENT: Reports: no symptoms Respiratory: Reports: no symptoms Breasts: Reports: no symptoms Cardiovascular: Reports: no symptoms Gastrointestinal/Abdominal: Reports: no symptoms Genitourinary: Reports: no symptoms Neurologic: Reports: no symptoms Psychiatric: Reports: no symptoms Skin: Reports: no symptoms Endocrine: Reports: no symptoms Allergies: Coded Allergies: No Known Allergies (Unverified , 01/08/13) Subjective he was doing better today, denied any flank pain, no fever or chills, no nausea or vomiting , no chest pain or SOB Objective Vital Signs Last 24 Hour Vital Signs Date Time Temp Pulse Resp B/P Pulse Ox O2 Delivery O2 Flow Rate FiO2 11/13/16 12:00 109 11/13/16 12:00 97.0 107 18 104/67 Room Air 11/13/16 09:43 112 114/67 11/13/16 09:34 97.0 112 114/67 Room Air 11/13/16 08:00 130 11/13/16 07:40 108 20 11/13/16 04:24 98.6 102 20 126/83 95 Room Air 11/13/16 04:00 109 11/13/16 00:26 97.9 111 22 134/84 97 Room Air 11/13/16 00:00 110 11/12/16 21:00 104 103/63 11/12/16 20:00 97.8 104 19 103/63 99 Nasal Cannula 4.0 11/12/16 20:00 103 11/12/16 19:28 106 18 Room Air 11/12/16 16:00 97.7 101 19 111/73 99 Nasal Cannula 4.0 11/12/16 16:00 98 Height (Feet): 5 Height (Inches): 6.00 Weight (Pounds): 169 General Appearance: WD/WN, no acute distress HEENT: normocephalic, atraumatic, anicteric, mucous membranes moist Respiratory/Chest: chest wall non-tender, lungs clear, normal breath sounds, no respiratory distress, no accessory muscle use Cardiovascular: normal peripheral pulses, normal rate, regular rhythm, no gallop/murmur Abdomen: normal bowel sounds, soft, non tender, no organomegaly, non distended , no mass Extremities: no cyanosis, no clubbing Skin: no rash, no lesions, no ulcers Laboratory Tests Test 11/13/16 06:40 11/13/16 11:00 White Blood Count 7.2 K/UL (4.8-10.8) Red Blood Count 3.49 M/UL (4.70-6.10) L Hemoglobin 10.3 G/DL (14.2-18.0) L Hematocrit 30.7 % (42.0-52.0) L Mean Corpuscular Volume 88 FL (80-99) Mean Corpuscular Hemoglobin 29.6 PG (27.0-31.0) Mean Corpuscular Hemoglobin Concent 33.7 G/DL (32.0-36.0) Red Cell Distribution Width 14.1 % (11.6-14.8) Platelet Count 246 K/UL (150-450) Mean Platelet Volume 6.5 FL (6.5-10.1) Neutrophils (%) (Auto) 73.1 % (45.0-75.0) Lymphocytes (%) (Auto) 14.3 % (20.0-45.0) L Monocytes (%) (Auto) 11.2 % (1.0-10.0) H Eosinophils (%) (Auto) 1.0 % (0.0-3.0) Basophils (%) (Auto) 0.4 % (0.0-2.0) Prothrombin Time 21.1 SEC (9.30-11.50) H Prothromb Time International Ratio 2.0 (0.9-1.1) H Current Medications Medications (Trade) Dose Ordered Sig/Christie Route PRN Reason Start Time Stop Time Status Last Admin Dose Admin Acetaminophen (Tylenol) 650 mg Q4H PRN ORAL fever 11/05/16 20:00 12/05/16 19:59 Al Hydroxide/Mg Hydroxide (Mylanta II) 30 ml Q6H PRN ORAL dyspepsia 11/05/16 20:00 12/05/16 19:59 Clonidine HCl (Catapres) 0.1 mg Q4H PRN ORAL For SBP > 160mmHg 11/05/16 20:00 12/05/16 19:59 Duloxetine HCl (Cymbalta) 60 mg DAILY ORAL 11/06/16 09:00 12/06/16 08:59 11/13/16 09:44 Enoxaparin Sodium (Lovenox) 110 mg Q24H SUBQ 11/11/16 16:00 12/11/16 15:59 11/12/16 17:12 Escitalopram Oxalate (Lexapro) 10 mg DAILY ORAL 11/06/16 09:00 12/06/16 08:59 11/13/16 09:43 Methocarbamol (Robaxin) 750 mg TID ORAL 11/06/16 09:00 12/06/16 08:59 11/13/16 13:09 Metoprolol Tartrate (Lopressor) 12.5 mg Q12HR ORAL 11/12/16 21:00 12/12/16 20:59 11/13/16 09:43 Nitroglycerin (Ntg) 0.4 mg Q5M X 3 DOSES PRN SL Prn Chest Pain 11/05/16 19:45 12/05/16 19:44 11/07/16 19:58 Ondansetron HCl (Zofran) 4 mg Q6H PRN IVP Nausea & Vomiting 11/05/16 20:00 12/05/16 19:59 Polyethylene Glycol (Miralax) 17 gm DAILYPRN PRN ORAL Constipation 11/05/16 20:00 12/05/16 19:59 Promethazine HCl/ Codeine (Phenergan with Codeine) 5 ml Q4H PRN ORAL For Cough 11/05/16 20:00 12/05/16 19:59 Quetiapine Fumarate (SEROquel) 100 mg DAILY ORAL 11/06/16 09:00 12/06/16 08:59 11/13/16 09:44 Topiramate (Topamax) 50 mg EVERY 12 HOURS ORAL 11/05/16 21:00 12/05/16 20:59 11/13/16 10:01 Warfarin Sodium (Coumadin per pharmacy) 1 ea DAILY PRN MISC Per rx protocol 11/08/16 14:00 12/08/16 13:59 Warfarin Sodium (Coumadin) 3 mg COUMADIN ORAL 11/13/16 17:00 11/13/16 17:01 Stanley Sofia M.D. Nov 13, 2016 14:53
[2016-11-13 16:00] VITALS: BP 113/76
[2016-11-13] MEDS ORDERED: Warfarin Sodium 3mg ORAL SCH (17:00)
[2016-11-13] MEDS ORDERED: NS 275ml ONE (17:11)
[2016-11-13] MEDS: Enoxaparin 120 mg inj SUBQ SCH (17:41)
[2016-11-13 20:00] VITALS: BP 143/94
[2016-11-14] VITALS: BP 138/72
[2016-11-14 04:00] VITALS: BP 132/70
--- NOTE | 2016-11-14 06:26 | General Progress Note ---
Assessment/Plan Assessment/Plan IMPRESSION: 1. Bilateraly PE on CTA 11/08/16 - continue coumadin and goal INR 2-3 2. Anemia 2/2 chronic disease - stable 3. Thrombocytopenia. Potentially 2/2 infection, improved 4. Leukocytosis. Likely 2/2 underlying infection, improved 5. Probable pneumonia. Rx abx 6. Mild with fatty infiltration. 7. Community acquired pneumonia. 8. Human-immunodeficiency virus. on Meds 9. Dehydration. 10. Sinus tachycardia. RECOMMENDATIONS: 1. D/C lovenox today 2. Continue coumadin 3. Antibiotics prn basis 4. Monitor counts, hgb goal >7.0 5. DVT prophylaxis with coumadin 6. Continue HIV meds per ID 7. Goal INR 2-3 8. Follow up on ID, Pulmonary and Cards recs 9. Discussed with staff Thank you, Myranda Edmondson MD Subjective Constitutional: Reports: no symptoms HEENT: Reports: no symptoms Cardiovascular: Reports: no symptoms Respiratory: Reports: no symptoms Gastrointestinal/Abdominal: Reports: no symptoms Genitourinary: Reports: burning Neurologic/Psychiatric: Reports: no symptoms Endocrine: Reports: no symptoms Hematologic/Lymphatic: Reports: anemia Allergies: Coded Allergies: No Known Allergies (Unverified , 01/08/13) Subjective no complaints, is not bleeding Objective Last 24 Hour Vital Signs Date Time Temp Pulse Resp B/P Pulse Ox O2 Delivery O2 Flow Rate FiO2 11/14/16 04:00 97.8 106 20 132/70 98 Room Air 11/14/16 04:00 92 11/14/16 00:00 87 11/14/16 00:00 97.6 110 22 138/72 98 Room Air 11/13/16 21:01 115 143/94 11/13/16 20:00 97.4 115 20 143/94 97 Room Air 11/13/16 20:00 99 11/13/16 19:00 105 18 Room Air 11/13/16 16:00 97.3 102 20 113/76 98 Room Air 11/13/16 16:00 101 11/13/16 12:00 109 11/13/16 12:00 97.0 107 18 104/67 Room Air 11/13/16 09:43 112 114/67 11/13/16 09:34 97.0 112 114/67 Room Air 11/13/16 08:00 130 11/13/16 07:40 108 20 Intake and Output 11/13/16 11/14/16 19:00 07:00 Intake Total 700 ml Balance 700 ml Intake Oral 700 ml # Voids 3 1 Laboratory Tests 11/13/16 06:40: White Blood Count 7.2, Red Blood Count 3.49L, Hemoglobin 10.3L, Hematocrit 30.7L , Mean Corpuscular Volume 88, Mean Corpuscular Hemoglobin 29.6, Mean Corpuscular Hemoglobin Concent 33.7, Red Cell Distribution Width 14.1, Platelet Count 246, Mean Platelet Volume 6.5, Neutrophils (%) (Auto) 73.1, Lymphocytes (% ) (Auto) 14.3L, Monocytes (%) (Auto) 11.2H, Eosinophils (%) (Auto) 1.0, Basophils (%) (Auto) 0.4 11/13/16 11:00: Prothrombin Time 21.1H, Prothromb Time International Ratio 2.0H Height (Feet): 5 Height (Inches): 6.00 Weight (Pounds): 169 General Appearance: alert EENT: TMs normal Neck: supple Cardiovascular: regular rhythm Respiratory/Chest: normal breath sounds Abdomen: non tender Extremities: non-tender Edema: no edema noted Leg (L), no edema noted Leg (R) Edema: mild edema Neurologic: alert Skin: warm/dry MYRANDA EDMONDSON Nov 14, 2016 06:26
[2016-11-14 07:52] LABS: BASOPHILS % (AUTO) 0.5 % (0.0-2.0); EOSINOPHILS % (AUTO) 0.6 % (0.0-3.0); LYMPHOCYTES % (AUTO) 21.3 % (20.0-45.0); MEAN CORPUSCULAR HEMOGLOBIN 29.4 PG (27.0-31.0); MEAN CORPUSCULAR HGB CONC 32.4 G/DL (32.0-36.0); MEAN CORPUSCULAR VOLUME 91 FL (80-99); MEAN PLATELET VOLUME 6.2 FL (6.5-10.1); MONOCYTES % (AUTO) 11.5 % (1.0-10.0); PLATELET COUNT 250 K/UL (150-450); RED BLOOD COUNT 3.51 M/UL (4.70-6.10); RED CELL DISTRIBUTION WIDTH 14.2 % (11.6-14.8); WHITE BLOOD COUNT 8.1 K/UL (4.8-10.8)
[2016-11-14 08:07] LABS: INR 2.3 (0.9-1.1); PROTHROMBIN TIME 23.9 SEC (9.30-11.50)
[2016-11-14 08:30] VITALS: BP 134/77
[2016-11-14] MEDS: Metoprolol Tartrate 12.5mg TAB ORAL SCH ×2 (09:15→21:43)
[2016-11-14] MEDS: DULoxetine 30mg cap ORAL SCH (09:15)
[2016-11-14] MEDS: Topiramate 25mg tab ORAL SCH ×2 (09:15→21:44)
[2016-11-14] MEDS: TIVICAY 50MG ORAL SCH (09:16)
[2016-11-14] MEDS: Methocarbamol 750mg tab ORAL SCH ×3 (09:16→18:49)
[2016-11-14] MEDS: PREZCOBIX ORAL SCH (09:17)
[2016-11-14] MEDS: DESCOVY 200MG/25MG ORAL SCH (09:17)
--- NOTE | 2016-11-14 10:25 | Pulmonology Progress Note ---
Assessment/Plan Assessment/Plan ASSESSMENT bilateral PE CAP Sinus tachycardia HIV status depression renal insufficiency 2 to dehydration anemia of chronic disease PLAN OF CARE tele Bilateral PE on CTA 11/08/16 - INR -2.3 today,dc Lovenox and continue Coumadin per pharmacy to keep therapeutic INR 2-3 venous Duplex BLE negative heme follows, no hypercoagulability workup needed as per heme s/p abx Rx, ID follows , observed off abx O2 HH prn fu with CXR blood cx negative, influenza screen test negative, sputum cx if able, antitussive prn ECHO with preserved EF, mild LVH BP stable, on low dose BB ST likely 2 to dehydration and PNA (as per cardio PT/OT hepatitis panel negative CD4-657, HAART Rx per ID continue Cymbalta and Lexapro monitor renal parameters, avoid nephrotoxic, creat down to normal after IV hydration can go to [place] if OK wio=th cardio case discussed and evaluated by supervising physician Subjective Allergies: Coded Allergies: No Known Allergies (Unverified , 01/08/13) Subjective leukocytosis resolved, afebrile on RA sat stable, no signs of respiratory distress Objective Last 24 Hour Vital Signs Date Time Temp Pulse Resp B/P Pulse Ox O2 Delivery O2 Flow Rate FiO2 11/14/16 09:15 106 134/77 11/14/16 08:30 106 11/14/16 08:30 98.4 106 20 134/77 98 Room Air 11/14/16 08:20 100 18 Room Air 11/14/16 04:00 97.8 106 20 132/70 98 Room Air 11/14/16 04:00 92 11/14/16 00:00 87 11/14/16 00:00 97.6 110 22 138/72 98 Room Air 11/13/16 21:01 115 143/94 11/13/16 20:00 97.4 115 20 143/94 97 Room Air 11/13/16 20:00 99 11/13/16 19:00 105 18 Room Air 11/13/16 16:00 97.3 102 20 113/76 98 Room Air 11/13/16 16:00 101 11/13/16 12:00 109 11/13/16 12:00 97.0 107 18 104/67 Room Air Intake and Output 11/13/16 11/14/16 19:00 07:00 Intake Total 700 ml Balance 700 ml Intake Oral 700 ml # Voids 3 1 Objective General Appearance: no acute distress, awake, responsive, HEENT: normocephalic, atraumatic, anicteric, mucous membranes moist Respiratory/Chest: lungs clear - with moderate air entry , no respiratory distress, no accessory muscle use Cardiovascular: regular rhythm, no JVD, tachycardia - Abdomen: normal bowel sounds, soft, non tender, non distended Genitourinary: normal external genitalia Extremities: no edema, pedal pulses normal Neurologic/Psychiatric: no motor/sensory deficits, alert, responsive Musculoskeletal: normal muscle bulk Laboratory Tests 11/13/16 11:00: Prothrombin Time 21.1H, Prothromb Time International Ratio 2.0H 11/14/16 06:25: Prothrombin Time 23.9H, Prothromb Time International Ratio 2.3H, White Blood Count 8.1, Red Blood Count 3.51L, Hemoglobin 10.3L, Hematocrit 31.9L, Mean Corpuscular Volume 91, Mean Corpuscular Hemoglobin 29.4, Mean Corpuscular Hemoglobin Concent 32.4, Red Cell Distribution Width 14.2, Platelet Count 250, Mean Platelet Volume 6.2L, Neutrophils (%) (Auto) 66.0, Lymphocytes (%) (Auto) 21.3, Monocytes (%) (Auto) 11.5H, Eosinophils (%) (Auto) 0.6, Basophils (%) ( Auto) 0.5 Current Medications Medications (Trade) Dose Ordered Sig/Christie Route PRN Reason Start Time Stop Time Status Last Admin Dose Admin Acetaminophen (Tylenol) 650 mg Q4H PRN ORAL fever 11/05/16 20:00 12/05/16 19:59 Al Hydroxide/Mg Hydroxide (Mylanta II) 30 ml Q6H PRN ORAL dyspepsia 11/05/16 20:00 12/05/16 19:59 Clonidine HCl (Catapres) 0.1 mg Q4H PRN ORAL For SBP > 160mmHg 11/05/16 20:00 12/05/16 19:59 Duloxetine HCl (Cymbalta) 60 mg DAILY ORAL 11/06/16 09:00 12/06/16 08:59 11/14/16 09:15 Escitalopram Oxalate (Lexapro) 10 mg DAILY ORAL 11/06/16 09:00 12/06/16 08:59 11/14/16 09:16 Methocarbamol (Robaxin) 750 mg TID ORAL 11/06/16 09:00 12/06/16 08:59 11/14/16 09:16 Metoprolol Tartrate (Lopressor) 12.5 mg Q12HR ORAL 11/12/16 21:00 12/12/16 20:59 11/14/16 09:15 Nitroglycerin (Ntg) 0.4 mg Q5M X 3 DOSES PRN SL Prn Chest Pain 11/05/16 19:45 12/05/16 19:44 11/07/16 19:58 Ondansetron HCl (Zofran) 4 mg Q6H PRN IVP Nausea & Vomiting 11/05/16 20:00 12/05/16 19:59 Patient Own Medication (Patient's Own Med) 1 ea DAILY ORAL 11/14/16 09:00 12/14/16 08:59 11/14/16 09:16 Patient Own Medication (Patient's Own Med) 1 ea DAILY ORAL 11/14/16 09:00 12/14/16 08:59 11/14/16 09:17 Patient Own Medication (Patient's Own Med) 1 ea DAILY ORAL 11/14/16 09:00 12/14/16 08:59 11/14/16 09:17 Polyethylene Glycol (Miralax) 17 gm DAILYPRN PRN ORAL Constipation 11/05/16 20:00 12/05/16 19:59 Promethazine HCl/ Codeine (Phenergan with Codeine) 5 ml Q4H PRN ORAL For Cough 11/05/16 20:00 12/05/16 19:59 Quetiapine Fumarate (SEROquel) 100 mg DAILY ORAL 11/06/16 09:00 12/06/16 08:59 11/14/16 09:15 Topiramate (Topamax) 50 mg EVERY 12 HOURS ORAL 11/05/16 21:00 12/05/16 20:59 11/14/16 09:15 Warfarin Sodium (Coumadin per pharmacy) 1 ea DAILY PRN MISC Per rx protocol 11/08/16 14:00 12/08/16 13:59 Warfarin Sodium (Coumadin) 3 mg COUMADIN ORAL 11/14/16 17:00 11/19/16 16:59 Main (Vanchtein),Elvira VILLANUEVA Nov 14, 2016 10:25
--- NOTE | 2016-11-14 10:29 | Diagnostic Imaging Report ---
Clinical Indication: Cough Technique: IV administration nonionic contrast. Spiral acquisition obtained through the chest. Multiplanar reconstructions generated. Total dose length product 6621 mGycm. CTDIvol(s) 8, 40, 20 mGy Comparison: None Findings: Filling defects are seen within the bilateral main pulmonary arteries, extending into the lobar and segmental branches the upper and lower lobe, consistent with acute pulmonary emboli. There is no evidence of pulmonary artery dilatation or right ventricular dilatation. Infiltrates are seen occupying much of the left lower lobe. Less extensive mostly interstitial Infiltrates are seen within the right lower lobe. There is some peripheral alveolar consolidation as well. There is also compressive atelectatic change of both lower lobes. There is a small pleural effusion on the left. Bands of atelectasis are seen within the inferior left upper lobe. There is a posterior lateral pericardial effusion on the left, measuring up to 15 mm thick. This is not circumferential however. No mediastinal or hilar mass or adenopathy. No axillary or chest wall mass or adenopathy. Included upper abdominal anatomy demonstrates that the spleen is enlarged, measuring 14.6 cm in diameter. There is questionably a low-attenuation lesion in the lower pole,, although this could be just an artifact of the early phase of perfusion. The bones demonstrate degenerative spondylosis changes of the thoracic spine. Impression: Positive for bilateral large acute pulmonary emboli. No evidence of pulmonary arterial hypertension Extensive infiltrate in the left lower lobe. This may reflect pneumonia. The pulmonary emboli, the possibility of these representing pulmonary infarct should also be considered. Less extensive infiltrates are seen in the right lower lobe Small left pleural effusion graph small pericardial effusion Splenomegaly. Cannot rule out low-attenuation lesion within the lower pole of the spleen although this could be artifactual Critical value findings phoned to Dr. Dutta and Dr. Diana at the time of interpretation The CT scanner at [facility] is accredited by the [employer] and the scans are performed using protocols designed to limit radiation exposure to as low as reasonably achievable to attain images of sufficient resolution adequate for diagnostic evaluation.
--- NOTE | 2016-11-14 10:31 | Diagnostic Imaging Report ---
Indication: Dyspnea Comparison: 12.716 A single view chest radiograph was obtained. Findings: Scarring versus atelectasis in the left perihilar and basilar region noted. Heart size is stable. Bones are osteopenic. Impression: No acute disease
--- NOTE | 2016-11-14 11:41 | Cardiac Electrophysiology PN ---
Assessment/Plan Assessment/Plan 1. Bilateraly PE on Coumadin. INR today 2.0 2. Sinus Tachycardia due to pneumonia and PE. No atrial fibrillation. Echocardiogram showed normal left ventricle systolic function.Continue metoprolol 12.5 bid. HR better. 3. Hypotension. Resolved despite metoprolol. 4. Pneumonia, now off antibiotics 5. Human immunodeficiency viru. Now on HIV meds. 6. Depression, on Cymbalta DW RN Subjective Subjective Alert in NAD . Sinus tachycardia is better. Objective Last 24 Hour Vital Signs Date Time Temp Pulse Resp B/P Pulse Ox O2 Delivery O2 Flow Rate FiO2 11/14/16 09:15 106 134/77 11/14/16 08:30 106 11/14/16 08:30 98.4 106 20 134/77 98 Room Air 11/14/16 08:20 100 18 Room Air 11/14/16 04:00 97.8 106 20 132/70 98 Room Air 11/14/16 04:00 92 11/14/16 00:00 87 11/14/16 00:00 97.6 110 22 138/72 98 Room Air 11/13/16 21:01 115 143/94 11/13/16 20:00 97.4 115 20 143/94 97 Room Air 11/13/16 20:00 99 11/13/16 19:00 105 18 Room Air 11/13/16 16:00 97.3 102 20 113/76 98 Room Air 11/13/16 16:00 101 11/13/16 12:00 109 11/13/16 12:00 97.0 107 18 104/67 Room Air Intake and Output 11/13/16 11/14/16 19:00 07:00 Intake Total 700 ml Balance 700 ml Intake Oral 700 ml # Voids 3 1 Laboratory Tests Test 11/14/16 06:25 White Blood Count 8.1 K/UL (4.8-10.8) Red Blood Count 3.51 M/UL (4.70-6.10) L Hemoglobin 10.3 G/DL (14.2-18.0) L Hematocrit 31.9 % (42.0-52.0) L Mean Corpuscular Volume 91 FL (80-99) Mean Corpuscular Hemoglobin 29.4 PG (27.0-31.0) Mean Corpuscular Hemoglobin Concent 32.4 G/DL (32.0-36.0) Red Cell Distribution Width 14.2 % (11.6-14.8) Platelet Count 250 K/UL (150-450) Mean Platelet Volume 6.2 FL (6.5-10.1) L Neutrophils (%) (Auto) 66.0 % (45.0-75.0) Lymphocytes (%) (Auto) 21.3 % (20.0-45.0) Monocytes (%) (Auto) 11.5 % (1.0-10.0) H Eosinophils (%) (Auto) 0.6 % (0.0-3.0) Basophils (%) (Auto) 0.5 % (0.0-2.0) Prothrombin Time 23.9 SEC (9.30-11.50) H Prothromb Time International Ratio 2.3 (0.9-1.1) H Objective HEAD AND NECK: No JVD. LUNGS: Clear. CARDIOVASCULAR: Tachycardic S1 and S2 with no gallop or murmur. ABDOMEN: Soft. EXTREMITIES: No pitting edema. KURT ALEGRIA Nov 14, 2016 11:41
--- NOTE | 2016-11-14 11:54 | Diagnostic Imaging Report ---
Indication: Dyspnea Comparison: 11/09/16 A single view chest radiograph was obtained. Findings: Minimal patchy infiltrate or atelectasis it measured at the lung bases. Heart size is stable. Impression: Minimal patchy basilar infiltrate versus atelectasis
[2016-11-14 12:18] VITALS: BP 130/74
[2016-11-14 16:00] VITALS: BP 105/73
--- NOTE | 2016-11-14 17:57 | Infectious Diseases Prog Note ---
Assessment/Plan Problems: (1) CAP (community acquired pneumonia) Assessment & Plan: received cefepime ,vancomycin for 10 days total already , now off antibiotics , sputum culture showed no growth .influenza screening is negative (2) HIV (human immunodeficiency virus infection) Assessment & Plan: with high CD4 counts and undetectable viral load, continue previous HIV meds, follow up with HIV provider as an outpatient (3) HTN (hypertension) Assessment & Plan: stable continue po meds. (4) Depression Assessment & Plan: stable , continue cymbalta (5) Leukocytosis Assessment & Plan: improving , no evidence of lung abscess on CT chest with contrast (6) Pulmonary embolism Assessment & Plan: started on anticoagulation as per HEM/ONC, monitor INR Subjective Constitutional: Reports: no symptoms HEENT: Reports: no symptoms Respiratory: Reports: no symptoms Breasts: Reports: no symptoms Cardiovascular: Reports: no symptoms Gastrointestinal/Abdominal: Reports: no symptoms Genitourinary: Reports: no symptoms Neurologic: Reports: no symptoms Psychiatric: Reports: no symptoms Skin: Reports: no symptoms Allergies: Coded Allergies: No Known Allergies (Unverified , 01/08/13) Subjective he was doing better today, denied any flank pain, no fever or chills, no nausea or vomiting , no chest pain or SOB Objective Vital Signs Last 24 Hour Vital Signs Date Time Temp Pulse Resp B/P Pulse Ox O2 Delivery O2 Flow Rate FiO2 11/14/16 16:00 97.9 104 20 105/73 98 Room Air 11/14/16 12:19 99 11/14/16 12:18 98.4 99 20 130/74 Room Air 11/14/16 09:15 106 134/77 11/14/16 08:30 106 11/14/16 08:30 98.4 106 20 134/77 98 Room Air 11/14/16 08:20 100 18 Room Air 11/14/16 04:00 97.8 106 20 132/70 98 Room Air 11/14/16 04:00 92 11/14/16 00:00 87 11/14/16 00:00 97.6 110 22 138/72 98 Room Air 11/13/16 21:01 115 143/94 11/13/16 20:00 97.4 115 20 143/94 97 Room Air 11/13/16 20:00 99 11/13/16 19:00 105 18 Room Air Height (Feet): 5 Height (Inches): 6.00 Weight (Pounds): 169 General Appearance: WD/WN, no acute distress HEENT: normocephalic, atraumatic, anicteric Respiratory/Chest: chest wall non-tender, lungs clear, normal breath sounds, no respiratory distress, no accessory muscle use Cardiovascular: normal peripheral pulses, normal rate, regular rhythm, no gallop/murmur Abdomen: normal bowel sounds, soft, non tender, no organomegaly, non distended Extremities: no cyanosis, no clubbing Skin: no rash, no lesions Laboratory Tests Test 11/14/16 06:25 White Blood Count 8.1 K/UL (4.8-10.8) Red Blood Count 3.51 M/UL (4.70-6.10) L Hemoglobin 10.3 G/DL (14.2-18.0) L Hematocrit 31.9 % (42.0-52.0) L Mean Corpuscular Volume 91 FL (80-99) Mean Corpuscular Hemoglobin 29.4 PG (27.0-31.0) Mean Corpuscular Hemoglobin Concent 32.4 G/DL (32.0-36.0) Red Cell Distribution Width 14.2 % (11.6-14.8) Platelet Count 250 K/UL (150-450) Mean Platelet Volume 6.2 FL (6.5-10.1) L Neutrophils (%) (Auto) 66.0 % (45.0-75.0) Lymphocytes (%) (Auto) 21.3 % (20.0-45.0) Monocytes (%) (Auto) 11.5 % (1.0-10.0) H Eosinophils (%) (Auto) 0.6 % (0.0-3.0) Basophils (%) (Auto) 0.5 % (0.0-2.0) Prothrombin Time 23.9 SEC (9.30-11.50) H Prothromb Time International Ratio 2.3 (0.9-1.1) H Current Medications Medications (Trade) Dose Ordered Sig/Christie Route PRN Reason Start Time Stop Time Status Last Admin Dose Admin Acetaminophen (Tylenol) 650 mg Q4H PRN ORAL fever 11/05/16 20:00 12/05/16 19:59 Al Hydroxide/Mg Hydroxide (Mylanta II) 30 ml Q6H PRN ORAL dyspepsia 11/05/16 20:00 12/05/16 19:59 Clonidine HCl (Catapres) 0.1 mg Q4H PRN ORAL For SBP > 160mmHg 11/05/16 20:00 12/05/16 19:59 Duloxetine HCl (Cymbalta) 60 mg DAILY ORAL 11/06/16 09:00 12/06/16 08:59 11/14/16 09:15 Escitalopram Oxalate (Lexapro) 10 mg DAILY ORAL 11/06/16 09:00 12/06/16 08:59 11/14/16 09:16 Methocarbamol (Robaxin) 750 mg TID ORAL 11/06/16 09:00 12/06/16 08:59 11/14/16 09:16 Metoprolol Tartrate (Lopressor) 12.5 mg Q12HR ORAL 11/12/16 21:00 12/12/16 20:59 11/14/16 09:15 Nitroglycerin (Ntg) 0.4 mg Q5M X 3 DOSES PRN SL Prn Chest Pain 11/05/16 19:45 12/05/16 19:44 11/07/16 19:58 Ondansetron HCl (Zofran) 4 mg Q6H PRN IVP Nausea & Vomiting 11/05/16 20:00 12/05/16 19:59 Patient Own Medication (Patient's Own Med) 1 ea DAILY ORAL 11/14/16 09:00 12/14/16 08:59 11/14/16 09:16 Patient Own Medication (Patient's Own Med) 1 ea DAILY ORAL 11/14/16 09:00 12/14/16 08:59 11/14/16 09:17 Patient Own Medication (Patient's Own Med) 1 ea DAILY ORAL 11/14/16 09:00 12/14/16 08:59 11/14/16 09:17 Polyethylene Glycol (Miralax) 17 gm DAILYPRN PRN ORAL Constipation 11/05/16 20:00 12/05/16 19:59 Promethazine HCl/ Codeine (Phenergan with Codeine) 5 ml Q4H PRN ORAL For Cough 11/05/16 20:00 12/05/16 19:59 Quetiapine Fumarate (SEROquel) 100 mg DAILY ORAL 11/06/16 09:00 12/06/16 08:59 11/14/16 09:15 Topiramate (Topamax) 50 mg EVERY 12 HOURS ORAL 11/05/16 21:00 12/05/16 20:59 11/14/16 09:15 Warfarin Sodium (Coumadin per pharmacy) 1 ea DAILY PRN MISC Per rx protocol 11/08/16 14:00 12/08/16 13:59 Warfarin Sodium (Coumadin) 3 mg COUMADIN ORAL 11/14/16 17:00 11/19/16 16:59 Stanley Sofia M.D. Nov 14, 2016 17:57
[2016-11-14] MEDS: Warfarin Sodium 3mg ORAL SCH (18:48)
[2016-11-14 20:00] VITALS: BP 110/55
[2016-11-15 00:42] VITALS: BP 114/66
[2016-11-15 04:30] VITALS: BP 112/64
[2016-11-15 07:49] LABS: BASOPHILS % (AUTO) 0.5 % (0.0-2.0); EOSINOPHILS % (AUTO) 0.7 % (0.0-3.0); LYMPHOCYTES % (AUTO) 19.9 % (20.0-45.0); MEAN CORPUSCULAR HEMOGLOBIN 29.8 PG (27.0-31.0); MEAN CORPUSCULAR HGB CONC 34.1 G/DL (32.0-36.0); MEAN CORPUSCULAR VOLUME 87 FL (80-99); MEAN PLATELET VOLUME 6.7 FL (6.5-10.1); MONOCYTES % (AUTO) 8.5 % (1.0-10.0); NEUTROPHILS % (AUTO) 70.4 % (45.0-75.0); PLATELET COUNT 254 K/UL (150-450); RED BLOOD COUNT 3.41 M/UL (4.70-6.10); RED CELL DISTRIBUTION WIDTH 14.6 % (11.6-14.8); WHITE BLOOD COUNT 9.6 K/UL (4.8-10.8)
[2016-11-15 08:00] VITALS: BP 144/90
[2016-11-15 08:11] LABS: INR 2.1 (0.9-1.1); PROTHROMBIN TIME 21.6 SEC (9.30-11.50)
[2016-11-15] MEDS: Metoprolol Tartrate 12.5mg TAB ORAL SCH (09:10)
[2016-11-15] MEDS: DULoxetine 30mg cap ORAL SCH (09:10)
[2016-11-15] MEDS: DESCOVY 200MG/25MG ORAL SCH (09:11)
[2016-11-15] MEDS: Topiramate 25mg tab ORAL SCH (09:11)
[2016-11-15] MEDS: TIVICAY 50MG ORAL SCH (09:12)
[2016-11-15] MEDS: PREZCOBIX ORAL SCH (09:12)
[2016-11-15] MEDS: Methocarbamol 750mg tab ORAL SCH ×3 (09:13→18:21)
--- NOTE | 2016-11-15 11:53 | General Progress Note ---
Assessment/Plan Assessment/Plan IMPRESSION: 1. Bilateraly PE on CTA 11/08/16 - continue coumadin and goal INR 2-3 2. Anemia 2/2 chronic disease - stable 3. Thrombocytopenia. Potentially 2/2 infection, improved 4. Leukocytosis. Likely 2/2 underlying infection, improved 5. Probable pneumonia. Rx abx 6. Mild with fatty infiltration. 7. Community acquired pneumonia. 8. Human-immunodeficiency virus. on Meds 9. Dehydration. 10. Sinus tachycardia. RECOMMENDATIONS: 1. D/C lovenox today 2. Continue coumadin 3. Antibiotics prn basis 4. Monitor counts, hgb goal >7.0 5. DVT prophylaxis with coumadin 6. Continue HIV meds per ID 7. Goal INR 2-3 8. Follow up on ID, Pulmonary and Cards recs 9. Discussed with staff Thank you, Ricki Edmondson MD Subjective Constitutional: Reports: no symptoms HEENT: Reports: no symptoms Cardiovascular: Reports: no symptoms Respiratory: Reports: no symptoms Gastrointestinal/Abdominal: Reports: no symptoms Genitourinary: Reports: no symptoms Neurologic/Psychiatric: Reports: no symptoms Endocrine: Reports: no symptoms Hematologic/Lymphatic: Reports: anemia Allergies: Coded Allergies: No Known Allergies (Unverified , 01/08/13) Subjective stable, has been on coumadin Objective Last 24 Hour Vital Signs Date Time Temp Pulse Resp B/P Pulse Ox O2 Delivery O2 Flow Rate FiO2 11/15/16 09:10 117 144/90 11/15/16 08:00 96.9 117 18 144/90 100 Room Air 11/15/16 08:00 105 11/15/16 04:30 97.0 101 20 112/64 97 Room Air 11/15/16 04:00 103 11/15/16 00:42 98.0 108 20 114/66 98 Room Air 11/15/16 00:00 89 11/14/16 21:43 105 114/64 11/14/16 20:00 97.6 103 21 110/55 98 Room Air 11/14/16 20:00 101 11/14/16 16:00 102 11/14/16 16:00 97.9 104 20 105/73 98 Room Air 11/14/16 12:19 99 11/14/16 12:18 98.4 99 20 130/74 Room Air Intake and Output 11/14/16 11/15/16 19:00 07:00 Intake Total 760 ml 120 ml Balance 760 ml 120 ml Intake Oral 760 ml 120 ml # Voids 2 # Bowel Movements 1 Laboratory Tests 11/15/16 06:50: White Blood Count 9.6, Red Blood Count 3.41L, Hemoglobin 10.2L, Hematocrit 29.7L , Mean Corpuscular Volume 87, Mean Corpuscular Hemoglobin 29.8, Mean Corpuscular Hemoglobin Concent 34.1, Red Cell Distribution Width 14.6, Platelet Count 254, Mean Platelet Volume 6.7, Neutrophils (%) (Auto) 70.4, Lymphocytes (% ) (Auto) 19.9L, Monocytes (%) (Auto) 8.5, Eosinophils (%) (Auto) 0.7, Basophils (%) (Auto) 0.5, Prothrombin Time 21.6H, Prothromb Time International Ratio 2.1H Height (Feet): 5 Height (Inches): 6.00 Weight (Pounds): 169 General Appearance: no apparent distress EENT: TMs normal Neck: normal inspection Cardiovascular: normal rate Respiratory/Chest: lungs clear Abdomen: non tender Extremities: non-tender Edema: no edema noted Leg (L), no edema noted Leg (R) Edema: mild edema Neurologic: alert Skin: warm/dry Ricki Edmondson Nov 15, 2016 11:52
[2016-11-15 12:00] VITALS: BP 109/67
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
--- NOTE | 2016-11-15 13:52 | Pulmonology Progress Note ---
Assessment/Plan Problems: (1) Pulmonary embolism (2) HIV (human immunodeficiency virus infection) (3) HTN (hypertension) (4) Depression Assessment/Plan slightly better tachycardia better, echo reviewed, normal LV function continue anticoagulation doppler of legs negative pt/ot on coumadin Less cough, phlegm resolved. INR is 2 consider dc home Subjective Interval Events: feeling better, less short of breath Allergies: Coded Allergies: No Known Allergies (Unverified , 01/08/13) Objective Last 24 Hour Vital Signs Date Time Temp Pulse Resp B/P Pulse Ox O2 Delivery O2 Flow Rate FiO2 11/15/16 12:00 93 11/15/16 12:00 96.7 94 17 109/67 100 Room Air 11/15/16 09:10 117 144/90 11/15/16 08:00 96.9 117 18 144/90 100 Room Air 11/15/16 08:00 105 11/15/16 04:30 97.0 101 20 112/64 97 Room Air 11/15/16 04:00 103 11/15/16 00:42 98.0 108 20 114/66 98 Room Air 11/15/16 00:00 89 11/14/16 21:43 105 114/64 11/14/16 20:00 97.6 103 21 110/55 98 Room Air 11/14/16 20:00 101 11/14/16 16:00 102 11/14/16 16:00 97.9 104 20 105/73 98 Room Air Intake and Output 11/14/16 11/15/16 19:00 07:00 Intake Total 760 ml 120 ml Balance 760 ml 120 ml Intake Oral 760 ml 120 ml # Voids 2 # Bowel Movements 1 General Appearance: WD/WN HEENT: normocephalic, atraumatic Respiratory/Chest: chest wall non-tender, lungs clear Cardiovascular: normal peripheral pulses, normal rate Abdomen: normal bowel sounds, soft, non tender Extremities: no cyanosis, no clubbing Neurologic/Psychiatric: cloth stretcher II-XII grossly normal Lymphatic: no neck adenopathy Laboratory Tests 11/15/16 06:50: White Blood Count 9.6, Red Blood Count 3.41L, Hemoglobin 10.2L, Hematocrit 29.7L , Mean Corpuscular Volume 87, Mean Corpuscular Hemoglobin 29.8, Mean Corpuscular Hemoglobin Concent 34.1, Red Cell Distribution Width 14.6, Platelet Count 254, Mean Platelet Volume 6.7, Neutrophils (%) (Auto) 70.4, Lymphocytes (% ) (Auto) 19.9L, Monocytes (%) (Auto) 8.5, Eosinophils (%) (Auto) 0.7, Basophils (%) (Auto) 0.5, Prothrombin Time 21.6H, Prothromb Time International Ratio 2.1H Current Medications Medications (Trade) Dose Ordered Sig/Christie Route PRN Reason Start Time Stop Time Status Last Admin Dose Admin Acetaminophen (Tylenol) 650 mg Q4H PRN ORAL fever 11/05/16 20:00 12/05/16 19:59 Al Hydroxide/Mg Hydroxide (Mylanta II) 30 ml Q6H PRN ORAL dyspepsia 11/05/16 20:00 12/05/16 19:59 Clonidine HCl (Catapres) 0.1 mg Q4H PRN ORAL For SBP > 160mmHg 11/05/16 20:00 12/05/16 19:59 Duloxetine HCl (Cymbalta) 60 mg DAILY ORAL 11/06/16 09:00 12/06/16 08:59 11/15/16 09:10 Escitalopram Oxalate (Lexapro) 10 mg DAILY ORAL 11/06/16 09:00 12/06/16 08:59 11/15/16 09:11 Methocarbamol (Robaxin) 750 mg TID ORAL 11/06/16 09:00 12/06/16 08:59 11/15/16 09:13 Metoprolol Tartrate (Lopressor) 12.5 mg Q12HR ORAL 11/12/16 21:00 12/12/16 20:59 11/15/16 09:10 Nitroglycerin (Ntg) 0.4 mg Q5M X 3 DOSES PRN SL Prn Chest Pain 11/05/16 19:45 12/05/16 19:44 11/07/16 19:58 Ondansetron HCl (Zofran) 4 mg Q6H PRN IVP Nausea & Vomiting 11/05/16 20:00 12/05/16 19:59 Patient Own Medication (Patient's Own Med) 1 ea DAILY ORAL 11/14/16 09:00 12/14/16 08:59 11/15/16 09:11 Patient Own Medication (Patient's Own Med) 1 ea DAILY ORAL 1/8/17 09:00 12/14/16 08:59 11/15/16 09:12 Patient Own Medication (Patient's Own Med) 1 ea DAILY ORAL 11/14/16 09:00 12/14/16 08:59 11/15/16 09:12 Polyethylene Glycol (Miralax) 17 gm DAILYPRN PRN ORAL Constipation 11/05/16 20:00 12/05/16 19:59 Promethazine HCl/ Codeine (Phenergan with Codeine) 5 ml Q4H PRN ORAL For Cough 11/05/16 20:00 12/05/16 19:59 Quetiapine Fumarate (SEROquel) 100 mg DAILY ORAL 11/06/16 09:00 12/06/16 08:59 11/15/16 09:11 Topiramate (Topamax) 50 mg EVERY 12 HOURS ORAL 11/05/16 21:00 12/05/16 20:59 11/15/16 09:11 Warfarin Sodium (Coumadin per pharmacy) 1 ea DAILY PRN MISC Per rx protocol 11/08/16 14:00 12/08/16 13:59 Warfarin Sodium (Coumadin) 3 mg COUMADIN ORAL 11/14/16 17:00 11/19/16 16:59 11/14/16 18:48 LESTER PISANO Nov 15, 2016 13:52
[2016-11-15 16:00] VITALS: BP 105/63
[2016-11-15] MEDS ORDERED: COUMADIN4 MG ORAL (17:01)
--- NOTE | 2016-11-15 17:30 | Infectious Diseases Prog Note ---
Assessment/Plan Problems: (1) CAP (community acquired pneumonia) Assessment & Plan: received cefepime ,vancomycin for 10 days total already , now off antibiotics , sputum culture showed no growth .influenza screening is negative (2) HIV (human immunodeficiency virus infection) Assessment & Plan: with high CD4 counts and undetectable viral load, continue previous HIV meds, follow up with HIV provider as an outpatient (3) HTN (hypertension) Assessment & Plan: stable continue po meds. (4) Depression Assessment & Plan: stable , continue cymbalta (5) Leukocytosis Assessment & Plan: improving , no evidence of lung abscess on CT chest with contrast (6) Pulmonary embolism Assessment & Plan: started on anticoagulation as per HEM/ONC, monitor INR Subjective Constitutional: Reports: no symptoms HEENT: Reports: no symptoms Respiratory: Reports: no symptoms Breasts: Reports: no symptoms Cardiovascular: Reports: no symptoms Gastrointestinal/Abdominal: Reports: no symptoms Genitourinary: Reports: no symptoms Neurologic: Reports: no symptoms Psychiatric: Reports: no symptoms Skin: Reports: no symptoms Endocrine: Reports: no symptoms Hematologic: Reports: no symptoms Musculoskeletal: Reports: no symptoms Allergies: Coded Allergies: No Known Allergies (Unverified , 01/08/13) Subjective he was doing better today, denied any flank pain, no fever or chills, no nausea or vomiting , no chest pain or SOB Objective Vital Signs Last 24 Hour Vital Signs Date Time Temp Pulse Resp B/P Pulse Ox O2 Delivery O2 Flow Rate FiO2 11/15/16 16:00 97.0 110 18 105/63 97 Room Air 11/15/16 12:00 93 11/15/16 12:00 96.7 94 17 109/67 100 Room Air 11/15/16 09:10 117 144/90 11/15/16 08:00 96.9 117 18 144/90 100 Room Air 11/15/16 08:00 105 11/15/16 04:30 97.0 101 20 112/64 97 Room Air 11/15/16 04:00 103 11/15/16 00:42 98.0 108 20 114/66 98 Room Air 11/15/16 00:00 89 11/14/16 21:43 105 114/64 11/14/16 20:00 97.6 103 21 110/55 98 Room Air 11/14/16 20:00 101 Height (Feet): 5 Height (Inches): 6.00 Weight (Pounds): 169 General Appearance: WD/WN, no acute distress HEENT: normocephalic, atraumatic, anicteric, mucous membranes moist Respiratory/Chest: chest wall non-tender, lungs clear, normal breath sounds, no respiratory distress, no accessory muscle use Cardiovascular: normal peripheral pulses, normal rate, regular rhythm Abdomen: normal bowel sounds, soft, non tender, no organomegaly, non distended , no mass Extremities: no cyanosis, no clubbing Skin: no rash, no lesions, no ulcers Laboratory Tests Test 11/15/16 06:50 White Blood Count 9.6 K/UL (4.8-10.8) Red Blood Count 3.41 M/UL (4.70-6.10) L Hemoglobin 10.2 G/DL (14.2-18.0) L Hematocrit 29.7 % (42.0-52.0) L Mean Corpuscular Volume 87 FL (80-99) Mean Corpuscular Hemoglobin 29.8 PG (27.0-31.0) Mean Corpuscular Hemoglobin Concent 34.1 G/DL (32.0-36.0) Red Cell Distribution Width 14.6 % (11.6-14.8) Platelet Count 254 K/UL (150-450) Mean Platelet Volume 6.7 FL (6.5-10.1) Neutrophils (%) (Auto) 70.4 % (45.0-75.0) Lymphocytes (%) (Auto) 19.9 % (20.0-45.0) L Monocytes (%) (Auto) 8.5 % (1.0-10.0) Eosinophils (%) (Auto) 0.7 % (0.0-3.0) Basophils (%) (Auto) 0.5 % (0.0-2.0) Prothrombin Time 21.6 SEC (9.30-11.50) H Prothromb Time International Ratio 2.1 (0.9-1.1) H Current Medications Medications (Trade) Dose Ordered Sig/Christie Route PRN Reason Start Time Stop Time Status Last Admin Dose Admin Acetaminophen (Tylenol) 650 mg Q4H PRN ORAL fever 11/05/16 20:00 12/05/16 19:59 Al Hydroxide/Mg Hydroxide (Mylanta II) 30 ml Q6H PRN ORAL dyspepsia 11/05/16 20:00 12/05/16 19:59 Clonidine HCl (Catapres) 0.1 mg Q4H PRN ORAL For SBP > 160mmHg 11/05/16 20:00 12/05/16 19:59 Duloxetine HCl (Cymbalta) 60 mg DAILY ORAL 11/06/16 09:00 12/06/16 08:59 11/15/16 09:10 Escitalopram Oxalate (Lexapro) 10 mg DAILY ORAL 11/06/16 09:00 12/06/16 08:59 11/15/16 09:11 Methocarbamol (Robaxin) 750 mg TID ORAL 11/06/16 09:00 12/06/16 08:59 11/15/16 14:39 Metoprolol Tartrate (Lopressor) 12.5 mg Q12HR ORAL 11/12/16 21:00 12/12/16 20:59 11/15/16 09:10 Nitroglycerin (Ntg) 0.4 mg Q5M X 3 DOSES PRN SL Prn Chest Pain 11/05/16 19:45 12/05/16 19:44 11/07/16 19:58 Ondansetron HCl (Zofran) 4 mg Q6H PRN IVP Nausea & Vomiting 11/05/16 20:00 12/05/16 19:59 Patient Own Medication (Patient's Own Med) 1 ea DAILY ORAL 11/14/16 09:00 12/14/16 08:59 11/15/16 09:11 Patient Own Medication (Patient's Own Med) 1 ea DAILY ORAL 11/14/16 09:00 12/14/16 08:59 11/15/16 09:12 Patient Own Medication (Patient's Own Med) 1 ea DAILY ORAL 11/14/16 09:00 12/14/16 08:59 11/15/16 09:12 Polyethylene Glycol (Miralax) 17 gm DAILYPRN PRN ORAL Constipation 11/05/16 20:00 12/05/16 19:59 Promethazine HCl/ Codeine (Phenergan with Codeine) 5 ml Q4H PRN ORAL For Cough 11/05/16 20:00 12/05/16 19:59 Quetiapine Fumarate (SEROquel) 100 mg DAILY ORAL 11/06/16 09:00 12/06/16 08:59 11/15/16 09:11 Topiramate (Topamax) 50 mg EVERY 12 HOURS ORAL 11/05/16 21:00 12/05/16 20:59 11/15/16 09:11 Warfarin Sodium (Coumadin per pharmacy) 1 ea DAILY PRN MISC Per rx protocol 11/08/16 14:00 12/08/16 13:59 Warfarin Sodium (Coumadin) 3 mg COUMADIN ORAL 11/14/16 17:00 11/19/16 16:59 11/14/16 18:48 Stanley Sofia M.D. Nov 15, 2016 17:30
[2016-11-15] MEDS: Warfarin Sodium 3mg ORAL SCH (18:20)
--- NOTE | 2016-11-16 12:44 | Discharge Summary ---
Discharge Summary Hospital Course Date of Admission Nov 02, 2016 at 17:17 Date of Discharge Nov 15, 2016 at 19:23 Admitting Diagnosis SOB, TACHYCARDIA HPI Gregg Saunders is a 61 year old male who was admitted on Nov 02, 2016 at 17:17 for Shortness Of Breath, Tachycardia Hospital Course dc summary dictated #[id number] Discharge Medications Continued Medications: Darunavir/Cobicistat (Prezcobix 800 mg-150 mg Tablet) 1 Each Tablet 1 EACH PO, TAB Dolutegravir Sodium (Tivicay) 50 Mg Tablet 50 MG ORAL DAILY, TAB Duloxetine Hcl* (Cymbalta*) 60 Mg Capsule.dr 60 MG ORAL, CAP Emtricitabine/Tenofov Alafenam (Descovy 200-25 mg Tablet) 1 Each Tablet 1 EACH PO, TAB Epzicom (Epzicom Tablet) 1 Tab Tab 1 TAB PO DAILY, #10 TAB Take 1 tablet by mouth every day. Escitalopram Oxalate* (Lexapro*) 10 Mg Tablet 10 MG ORAL, TAB Folic Acid* (Folic Acid*) 1 Mg Tablet 1 MG PO DAILY, #10 TAB Take 1 tablet by mouth every day. Fosamprenavir Calcium* (Lexiva*) 700 Mg Tablet 700 MG PO Q12H, #20 TAB Take 1 tablet by mouth every 12 hours. Ibuprofen* (Motrin*) 600 Mg Tablet 600 MG ORAL Q8H PRN for For Pain, #30 TAB Lisinopril* (Zestril*) 5 Mg Tablet 5 MG PO DAILY, #10 TAB Take 1 tablet by mouth every day. Methocarbamol* (Robaxin-750*) 750 Mg Tablet 750 MG PO TID, #21 TAB 0 Refills Quetiapine Fumarate* (Seroquel*) 100 Mg Tablet 100 MG ORAL, TAB Topiramate* (Topamax*) 25 Mg Tablet 50 MG ORAL EVERY 12 HOURS, TAB Tramadol Hcl* (Ultram*) 50 Mg Tablet 50 MG ORAL Q6H, #20 TAB 0 Refills Warfarin Sod* (Coumadin*) 4 Mg Tablet 4 MG ORAL Q1700, TAB Discharge Discharge Disposition Patient was discharged to SNF/Subacute Facility(03) Discharge Diagnoses: Main (Vanchtein),Elvira FROZEN FOOD DEPARTMENT MANAGER Nov 16, 2016 12:44
--- NOTE | 2016-11-16 22:52 | Diagnostic Imaging Report ---
APPROVED REPORT CPT Code: 30442 Present Symptoms Shortness of breath BILATERAL: Imaging reveals a patent deep venous system bilaterally. There is no evidence of thrombus within the femoral, popliteal or tibial segments. The greater saphenous veins are also within normal limits. Doppler indicates normal spontaneous flow within these segments.
--- NOTE | 2016-11-17 02:57 | Discharge Summary 2 SIG ---
DATE OF ADMISSION: 11/02/2016 DATE OF DISCHARGE: 11/15/2016 REASON FOR HOSPITALIZATION: 61-year-old male presented to the emergency room with increased gradual shortness of breath. The patient reported gradually worsening symptoms. Denied fever or chills. No exertional pain. Symptoms worse with the supine position. The patient has a history of HIV. The patient is on HIV regimen medication. The patient admitted for presumptive community-acquired pneumonia. ADMITTING DIAGNOSES: Include community acquired pneumonia and human immunodeficiency virus status. HOSPITAL COURSE: Admitted to [facility] due to tachycardia The patient started on supplemental oxygen and pulmonary toilet. Initial chest x-ray revealed bilateral atelectatic changes, small left pleural effusion. No acute process otherwise. The patient noted to have consistent tachycardia. Echocardiogram revealed preserved ejection fraction of 60% to 65%, mild left ventricular hypertrophy. In lieu of persistent tachycardia, CTA of the chest was done, which revealed bilateral acute large pulmonary emboli. No evidence of pulmonary arterial hypertension. CT of the chest also revealed extensive infiltrate in the left lower lobe likely pneumonia and less extensive infiltrates in the right lower lobe. Cardiology, Pulmonology, and Infectious Disease consults as well as the Hematology followed this patient. The patient started on Lovenox and Coumadin to reach therapeutic INR. The patient also followed up with venous duplex, which revealed patent bilateral deep venous system. Final chest x-ray shows minimal patchy basilar infiltrate. The patient's INR therapeutic. On day of discharge, INR 2.1. The patient is off Lovenox and on Coumadin. The patient needs close monitoring of PT and INR atthe senior care facility and adjustment of the Coumadin dose. Infectious Disease doctor was involved in care of this patient. The patient is status post ten days of treatment with intravenous vancomycin and cefepime. Currently off antibiotics. Blood culture and influenza screen test negative, sputum not collected ( patient had nonproductive cough, declined induction. Chest x-ray with improvement. ID recommended observe the patient off antibiotics. Leukocytosis resolved. No fevers. HAART regimen for HIV was resumed ( CD4 657), continue as is. Supplemental oxygen and pulmonary toilet provided as needed. Antitussive provided as well. Blood pressure was stable on low dose of beta-gissell. Tachycardia improved. According to certified breastfeeding educator sinus tachycardia in addition to PE was also likely secondary to dehydration and pneumonia . After the patient became clinically stable , s/p IVF hydration, tachycardia improved. Hepatitis panel was negative. The patient worked with physical and occupational therapy. Cymbalta and Lexapro continue for depression. Renal parameters stable, down to normal after IV hydration; recommended to avoid nephrotoxic. The patient is stable for discharge to senior care facility. FINAL DIAGNOSES: Include, 1. Acute bilateral large pulmonary emboli. 2. Community-acquired pneumonia. 3. Sinus tachycardia. 4. Human immunodeficiency virus status. 5. Hypertension. 6. Depression. 7. Anemia of chronic disease. 8. Renal insufficiency secondary to dehydration, resolved. DISCHARGE MEDICATIONS: See medication reconciliation list. The patient discharged on Coumadin 4 mg daily. Follow up with the PT/INR in the senior care facility and adjust the dose of Coumadin to keep therapeutic level of INR between 2 and 3. DISCHARGE INSTRUCTIONS: The patient discharged to senior care facility. Follow up with the medical doctor at the facility. Delaney Bo M.D. Elv[facility] NBertha DR: Yasmeen JOB#: [id number] CC: LISBETH
--- NOTE | 2016-11-22 23:47 | Physician Query ---
PLEASE COMPLETE DOCUMENT BEFORE SIGNING Dear Dr. COLINDRES Date: 11/22/2016 Soil Surveyor/CDS: ROSALINA DRISCOLL CCS Exercise your independent professional judgment when responding to the query. Questions asked do not imply a particular answer is desired or expected. We greatly appreciate your clarification on this issue. REASON FOR ADMISSION: Shortness of breath and tachycardia. HISTORY OF PRESENT ILLNESS: The patient was complaining of chest pain and shortness of breath for four days as well as low back pain. The patient has HIV and was tachycardiac. The patient has been admitted for possible pneumonia. CLINICAL DOCUMENTATION STATES: BILATERAL PULMONARY EMBOLISM 11/02/16- CXR: BILATERAL ATELECTATIC CHANGES, small pleural effusion, no acute process otherwise. 11/06/16 - CT chest:Positive for bilateral large acute pulmonary emboli; extensive infiltrate in the left lower lobe; small left pleural effusion. Please respond to the following question: Is there a diagnosis specific to these symptoms or values? If so please state below. Was the bilateral pulmonary emboli present on admission? PHYSICIAN RESPONSE: Condition Present on Admission: [] Yes [] No []Clinically Undeterminable Please also document in your Progress Notes and/or Discharge Summary and indicate if the condition was present on admission. JJ COLINDRES M.D. DATE & TIME [facility]
--- NOTE | 2016-12-01 13:37 | Physician Query ---
PLEASE COMPLETE DOCUMENT QUESTION IN RED SIGNING Dear Dr. COLINDRES Date: 12/01/2016 Pile Driving Superintendent/CDS: ROSALINA DRISCOLL CCS Exercise your independent professional judgment when responding to the query. Questions asked do not imply a particular answer is desired or expected. We greatly appreciate your clarification on this issue. REASON FOR ADMISSION: Shortness of breath and tachycardia. HISTORY OF PRESENT ILLNESS: The patient was complaining of chest pain and shortness of breath for four days as well as low back pain. The patient has HIV and was tachycardiac. The patient has been admitted for possible pneumonia. CLINICAL DOCUMENTATION STATES: BILATERAL PULMONARY EMBOLISM 11/02/16- CXR: BILATERAL ATELECTATIC CHANGES, small pleural effusion, no acute process otherwise. 11/06/16 - CT chest:Positive for bilateral large acute pulmonary emboli; extensive infiltrate in the left lower lobe; small left pleural effusion. Please respond to the following question: Is there a diagnosis specific to these symptoms or values? If so please state below. Was the bilateral pulmonary emboli present on admission? PHYSICIAN RESPONSE: Condition Present on Admission: [] Yes [] No []Clinically Undeterminable Please also document in your Progress Notes and/or Discharge Summary and indicate if the condition was present on admission. JJ COLINDRES M.D. DATE & TIME [facility]
== END 2016-11-15 19:23 | DRG 974 ==
LOC: EMR 15:30 → 2E 17:17 → EDBEDREQ 18:34 → 3E 11-05 20:26 → 2E 11-06 16:13
DX: J18.9 Pneumonia, unspecified organism (principal); I26.99 Other pulmonary embolism without acute cor pulmonale; B20 Human immunodeficiency virus [HIV] disease; D69.6 Thrombocytopenia, unspecified; E86.0 Dehydration; D64.9 Anemia, unspecified; I10 Essential (primary) hypertension; F32.9 Major depressive disorder, single episode, unspecified; D63.8 Anemia in other chronic diseases classified elsewhere
CPT/HCPCS: 36415; 71010; 71260; 80053; 80069; 80202; 81003; 82248; 82550; 82553; 83605; 83735; 83880; 84100; 84484; 85007; 85025; 85060; 85610; 85730; 86360; 86705; 86709; 86710; 86803; 87040; 87081; 87340; 87536; 93005; 93306; 93970; 94664; 94760